=== PATIENT | female | born 1975 | race Caucasian/White ===

== ENCOUNTER 2018-07-04 14:00 | Outpatient (RCR) | payer BC, SELFPAY | END 2018-07-04 14:01 | disposition home or self-care (01) | LOC: PT 14:00 | PROVIDERS: Family Provider Internal Medicine Adolescent Medicine; PCP Nurse Practitioner Family; Visit Provider Family Medicine | DX: T14.8XXA Other injury of unspecified body region, initial encounter (principal); E11.621 Type 2 diabetes mellitus with foot ulcer | CPT/HCPCS: 97161 ==

== ENCOUNTER 2021-01-24 10:46 | Emergency (ER) | payer BC, SELFPAY ==
[2021-01-24 11:05] VITALS: BP 160/90; PULSE 78; RESP 19; TEMP 36.9; O2SAT 98; BMI 43.4
[2021-01-24 11:26] LABS: UTC Strep Screen (Rapid) Positive (Negative)
--- NOTE | 2021-01-24 11:28 | HMH.EDUTC ---
[facility] [place] Disposition Clinical Impression: Strep throat Disposition: Home, Self-Care Condition on Discharge: Good Instructions: DI for Strep Throat Additional Instructions: Start antibiotics today be sure to take it as ordered with the full length of time although you should start feeling better in 24-48 hours. Change toothbrush and toothpaste 24-48 hours after starting antibiotics Tylenol or Motrin as needed for fever or pain Encourage fluids, water, Gatorade, Powerade, try cold fluids, popsicles, ice cream will make it feel better You are contagious for 24 hours. Avoid kissing anyone, no eating or drinking after anyone. You are contagious. Follow-up the ER for new or worsening symptoms or no noticeable improvement over the next 24-48 hours. Follow-up with PCP this week. self isolate until test results are known to be neg Prescriptions: Amoxicillin [Amoxicillin 500mg Tab] 500 mg PO BID 10 Days #20 tab Transmission Status: Pending to [facility] Referrals: Maria Alejandra Gastelum [Primary Care Provider] - Time of Disposition: 11:32 Medical Decision Making - Gulshan Inquiry Pt receiving controlled substance: No Vital Signs: 01/24/21 11:05 Temperature 98.4 F Temperature Source Oral Pulse Rate [Right] 78 Respiratory Rate 19 Blood Pressure [Right Arm] 160/90 H Blood Pressure Mean [Right Arm] 113 Blood Pressure Source [Right Arm] Automatic Cuff Blood Pressure Position [Right Arm] Sitting 02 Sat by Pulse Oximetry 98 Oxygen Delivery Method Room Air - Lab Data Lab Results 01/24/21 11:09: Strep Scn Rapid Clinic Positive A [facility] [place] HPI - General Chief complaint: Urgent Treatment Center Stated complaint: headache, sore throat Time Seen by Provider: 01/24/21 11:28 Mode of Arrival: Ambulatory Source of Information: Patient Limitations: No Limitations Description of Symptoms (Recalled from Triage Doc. by RN): pt c/o SCHMITT, cough, sore throat, bilateral ear aches, and sinus pressure x1 week. HEENT Symptoms (Recalled from RN notes): Yes (SCHMITT, sore throat and sinus pressure) Resp Symptoms (Recalled from RN notes): Yes (cough) Skin Symptoms (Recalled from RN notes): No MS Symptoms (Recalled from RN notes): No Functional Status (Recalled from RN notes): na - History of Present Illness Provider Complaint: 45 yr old female pt c/o SCHMITT, cough, sore throat, bilateral ear aches, and sinus pressure x1 week. - Related Data Home Medications Medication Instructions Recorded Confirmed amlodipine 5 mg tablet PO 30 Days #30 05/05/18 losartan 100 PO 30 Days #30 05/05/18 mg-hydrochlorothiazide 12.5 mg tablet metformin 1,000 mg tablet PO 30 Days #60 05/05/18 venlafaxine 75 mg capsule,extended PO 30 Days #30 05/05/18 release 24 hr Previous Rx's Medication Instructions Recorded fluticasone propionate 50 1 spray INTRANASAL ONCE #16 g 05/05/18 mcg/actuation nasal spray,suspension loratadine 10 mg tablet 10 mg PO ONCE #30 tab 05/05/18 Amoxicillin [Amoxicillin 500mg Tab] 500 mg PO BID 10 Days #20 tab 01/24/21 Allergies Allergy/AdvReac Type Severity Reaction Status Date / Time mycen drugs Allergy Uncoded 01/24/21 10:55 - Worker's Comp Is this a Worker's Comp case?: No [facility] History - Hepatitis A Screen Drug use history?: No High risk sexual behaviors?: No History of sexually transmitted infection?: No Currently employed?: No Childcare worker?: No Do you have indoor plumbing?: Yes Do you have electricity?: Yes Attestation statement:: This patient has been screened for Hepatitis A risk factors. I have reviewed the patient's past medical history: Yes Medical History: Reports:: Diabetes Mellitus Type 2, Hypertension Other Surgeries: Yes: Cholecystectomy, , Hysterectomy-Total, Plastic Surgery (Breast reduction) Amputation: No Fractures: No Comment: Cyst removed from left foot. - Social History Smoking Status: Never smoker Alcohol Intake: never Substance Use Type: denies u
[2021-01-24 11:29] VITALS: BP 157/93; PULSE 77; RESP 14; TEMP 36.6
== END 2021-01-24 11:46 | disposition home or self-care (01) ==
PROVIDERS: Emergency Provider Nurse Practitioner Family; PCP Nurse Practitioner Family
DX: J02.0 Streptococcal pharyngitis (principal); E11.9 Type 2 diabetes mellitus without complications; I10 Essential (primary) hypertension; Z79.899 Other long term (current) drug therapy
CPT/HCPCS: 87880; 99202; G0463

== ENCOUNTER 2021-09-23 11:42 | Emergency (ER) | payer BC, SELFPAY ==
[2021-09-23 12:40] VITALS: BP 161/84; PULSE 72; RESP 21; TEMP 36.8; O2SAT 100; BMI 43.0
[2021-09-23 13:03] LABS: UTC Influenza A Antigen Negative (Negative); UTC Strep Screen (Rapid) Negative (Negative)
[2021-09-23 13:04] LABS: UTC Influenza B Antigen Negative (Negative)
--- NOTE | 2021-09-23 13:38 | HMH.EDUTC ---
[facility] [place] Disposition Clinical Impression: Otitis media Qualifiers: Otitis media type: unspecified Laterality: left Qualified Code(s): H66.92 - Otitis media, unspecified, left ear Disposition: Home, Self-Care Condition on Discharge: Good Instructions: Middle Ear Infection, Middle Ear Infections (Alternative Therapy), Cefdinir, DI for Cough -- Adult Additional Instructions: *Monitor Temp, Over the counter Motrin or Tylenol as directed/as needed Tylenol every 4 hours and Motrin every 6 hours (as long as your family doctor has told you that you can take it) for fever or pain. and straight to ER if unable to lower temp less than 101.0 after medication given *Warm salt water gargles may help to soothe the throat *Throat Lozenges *Warm fluids like tea with honey may help to soothe the throat *Sleep elevated *Humidifier/Vaporizer Your throat swab was sent for culture. Those results are typically sent to your primary care. Be sure to follow up in 2-3 days with your family doctor/primary care physician if no improvement so they can review those result and treat if necessary. If you don?t have a primary care doctor, I recommend you get one but in the mean time, you will have to return to a walk in clinic Follow up IMMEDIATELY for new or worsening symptoms or no Noticeable improvement over the next 48-72 hours. 911 for difficulty breathing or swallowing You were tested for today for COVID19 your test result should be back in the next 24-48 hours, you may Check your results on the [facility] My health portal or in person at the Health information from [phone] if you have issues logging allied health professional [phone] Ext [phone] You was given a handout with instructions for Self Quarantine and Self isolation for while you wait on test results and what to do if they are positive If you are positive the Health Dept will be contacting you also Make sure to take your Vitamins Vit. C Vit D and Zinc if you can take them Prescriptions: Benzonatate [Benzonatate 100mg cap] 100 mg PO TID PRN #15 cap PRN Reason: Cough Transmission Status: [facility] Cefdinir [Omnicef 300mg Capsule] 300 mg PO BID #20 cap Transmission Status: [facility] Referrals: Maria Alejandra Gastelum [Primary Care Provider] - As needed Time of Disposition: 13:56 Medical Decision Making - Gulshan Inquiry Pt receiving controlled substance: No Gulshan was queried for this patient: No Vital Signs: 09/23/21 12:40 Temperature 98.3 F Temperature Source Oral Pulse Rate [Right Brachial] 72 Respiratory Rate 21 Blood Pressure [Right Arm] 161/84 H Blood Pressure Mean [Right Arm] 109 Blood Pressure Source [Right Arm] Automatic Cuff Blood Pressure Position [Right Arm] Sitting 02 Sat by Pulse Oximetry 100 Oxygen Delivery Method Room Air - Lab Data Lab results reviewed: Yes: I reviewed the patient's lab results. Lab Results 09/23/21 12:51: Influenza Type A Ag Negative, Influenza Type B Ag Negative 09/23/21 12:51: Strep Scn Rapid Clinic Negative Orders (Tests/Meds): ORDERS Category Date Time Status Covid-19 Nasal PCR ([facility]) Routine Lab 09/23/21 12:40 Received Strep Screen Confirmation Stat Micro 09/23/21 12:51 Received [facility] UTC HPI - General Stated complaint: sore throat, soa, congestion Time Seen by Provider: 09/23/21 13:38 Mode of Arrival: Ambulatory Source of Information: Patient Limitations: No Limitations Description of Symptoms (Recalled from Triage Doc. by RN): PATIENT C/O SORE THROAT, MUSCLE/JOINT ACHES, COUGH, AND EAR PAIN SINCE YESTERDAY HEENT Symptoms (Recalled from RN notes): Yes Resp Symptoms (Recalled from RN notes): No Skin Symptoms (Recalled from RN notes): No MS Symptoms (Recalled from RN notes): Yes Functional Status (Recalled from RN notes): WNL - History of Present Illness Provider Complaint: Patient states that she has been having pain in her left ear, sore throat, swollen lymph nodes cough and chest congestion for a c
[2021-09-23 14:00] VITALS: BP 161/84; PULSE 72; RESP 21; TEMP 36.8; O2SAT 100
== END 2021-09-23 14:05 | disposition home or self-care (01) ==
PROVIDERS: Emergency Provider Nurse Practitioner; PCP Nurse Practitioner Family
DX: H66.92 Otitis media, unspecified, left ear (principal); E11.9 Type 2 diabetes mellitus without complications; I10 Essential (primary) hypertension
CPT/HCPCS: 87804; 87880; 99203; C9803; G0463; U0003; U0005

== ENCOUNTER 2023-12-10 12:18 | Emergency (ER) | payer BC, SELFPAY ==
[2023-12-10] VITALS (11 sets, daily range): BP systolic 125–172; BP diastolic 69–112; PULSE 57–87; RESP 13–20; TEMP 36.5–36.7; O2SAT 95–99; BMI 36.4
--- NOTE | 2023-12-10 12:18 | ECG_ITS ---
APPROVED REPORT Exam: Resting ECG HR:93 bpm ECG Measurements Heart Rate 93 AXES [place] 213 P 73 QRSd 106 QRS -49 QT 378 T 51 QTc 428 Conclusion SINUS RHYTHM WITH FIRST DEGREE AV BLOCK LEFT AXIS DEVIATION [QRS AXIS < -30] Late R wave progression ABNORMAL ECG UNCONFIRMED REPORT Electronically signed by : Sarwat Avalos MD 12/11/2023 07:44:43
--- NOTE | 2023-12-10 12:22 | XR_ITS ---
PROCEDURE INFORMATION: Exam: XR Chest Exam date and time: 12/10/2023 12:25 PM Age: 48 years old Clinical indication: Pain; Chest pressure; Additional info: Midline cp TECHNIQUE: Imaging protocol: Radiologic exam of the chest. Views: 2 views. COMPARISON: No relevant prior studies available. FINDINGS: Lungs: No consolidation or lung nodules. Pleural spaces: No pleural effusion. No pneumothorax. Heart/Mediastinum: No abnormalities. No cardiomegaly. No pulmonary vascular congestion. Bones/joints: No fractures or bone lesions. IMPRESSION: No acute findings in the chest.
--- NOTE | 2023-12-10 12:26 | ED_ITS ---
Discharge Plan Disposition Patient Disposition: Home, Self-Care Chief Complaint: Chest Pain Prescriptions Prescriptions: No Action losartan-hydrochlorothiazide 100-12.5 mg tablet PO 30 Days Qty: 30 metformin 1,000 mg tablet PO 30 Days Qty: 60 amlodipine 5 mg tablet PO 30 Days Qty: 30 venlafaxine 75 mg capsule,extended release 24hr PO 30 Days Qty: 30 fluticasone propionate [Allergy Relief (fluticasone)] 50 mcg/actuation spray,suspension 1 spray INTRANASAL ONCE Qty: 16 0RF Rx Instructions: administer into each nostril loratadine 10 mg tablet 10 mg PO ONCE Qty: 30 0RF amoxicillin 500 MG tablet 500 mg PO BID 10 Days Qty: 20 0RF benzonatate 100 MG capsule 100 mg PO TID PRN (Reason: Cough) Qty: 15 0RF cefdinir 300 MG capsule 300 mg PO BID Qty: 20 0RF Referrals Follow up/Referrals: Kristian Meeks MD [Staff Physician] - See instructions Provider,MD Nikki [Referring] - See instructions Activity Restrictions/Add. Instructions Additional Instructions/Restrictions: At this time it was felt you are safe to be discharged home. If new or worsening symptoms please do not hesitate to return the emergency department. Please call and schedule appoint with Dr. Meeks as you are able. Clinical Impressions Clinical Impression: Chest pain Discharge ED Provider: William Issa HPI <Flip Hartley MD - Last Filed: 12/10/23 13:59> General Chief Complaint: Chest Pain Stated Complaint: chest pain Time Seen by Provider: 12/10/23 12:22 Mode of Arrival: Ambulatory Source of Information: Patient Limitations: No Limitations Description of Symptoms (Recalled from ER Triage Doc. by RN): pt reports chest pain began yesterday approx 1800. pt reports feels like stabbing pain. pain located in middle of chest. pt reports nausea and lightheadedness that she is most concerned with . History of Present Illness HPI narrative: Patient is a 48-year-old female with past medical history of [id number] diabetes who presents to the emergency department for evaluation of chest pain, intermittent lightheadedness. Onset was acute, 6 PM yesterday, intermittent, moderate to severe in intensity causing her to present here for continued evaluation. It radiates down bilateral lower extremities intermittently, does not radiate through to the back. 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 She has had chest pain previously that has been seen by a tight rope walker, does not report cardiac catheterization or stents. Related Data Home Medications Medication Instructions Recorded Confirmed amlodipine 5 mg tablet PO 30 days ##30 05/05/18 losartan 100 PO 30 days ##30 05/05/18 mg-hydrochlorothiazide 12.5 mg tablet metformin 1,000 mg tablet PO 30 days ##60 05/05/18 venlafaxine 75 mg capsule,extended PO 30 days ##30 05/05/18 release 24 hr Previous Rx's Medication Instructions Recorded fluticasone propionate 50 1 spray intranasal ONCE #16 grams 05/05/18 mcg/actuation nasal spray,suspension (Allergy Relief (fluticasone)) loratadine 10 mg tablet 10 mg PO ONCE #30 tabs 05/05/18 amoxicillin 500 mg tablet 500 mg PO BID 10 days #20 tabs 01/24/21 benzonatate 100 mg capsule 100 mg PO TID PRN Cough #15 caps 09/23/21 cefdinir 300 mg capsule 300 mg PO BID #20 caps 09/23/21 Allergies Allergy/AdvReac Type Severity Reaction Status Date / Time mycen drugs Allergy Uncoded 01/24/21 10:55 [facility] <Flip Hartley MD - Last Filed: 12/10/23 13:59> [facility] Disclaimer: The information contained in this section may have been updated after the patient was seen, as this information can be updated by other users. Social History Smoking Status: Never smoker alcohol intake: never substance use type: denies use current occupational status: employed Travel in the last 8 weeks: None <Flip Hartley MD - Last Filed: 12/10/23 13:59> ROS Obtained: Yes Systems reviewed as appropriate & no additional complaints except as documented Physical Exam <Flip Hartley MD - Last Filed: 12/10/23 13:59> General General appearance: alert and in no apparent distress Head Head exam: atraumatic and normocephalic Eye Eye exam: Present PERRL and EOMI ENT ENT exam: Present mucous membranes moist Neck Neck exam: Present normal inspection Chest Chest inspection: Present normal inspection and symmetric chest wall rise Respiratory Respiratory exam: Present normal lung sounds bilaterally; Absent respiratory distress Cardiovascular Cardiovascular exam: Present regular rate, normal rhythm and other (Palpable bilateral radial pulses, symmetric) Abdominal Exam Abdominal exam: Present soft; Absent tenderness Extremities Exam Extremities exam: Present normal inspection Neurological Exam Neurological exam: Present alert; Absent motor sensory deficit Psychiatric Psychiatric exam: Present normal affect Skin Skin exam: Present warm and dry HEART Score <Flip Hartley MD - Last Filed: 12/10/23 13:59> HEART Score HEART Score assessment performed?: Yes History (anamnesis): Moderately suspicious ECG: Non-specific disturbance Age: 45-65 years Risk factors: No known risk factors Troponin: </= normal limit HEART Score: 3 <William Issa MD - Last Filed: 12/10/23 16:07> HEART Score HEART Score: 3 Critical Care <Flip Hartley MD - Last Filed: 12/10/23 13:59> Critical Care Time Critical Care Time: No Medical Decision Making <Flip Hartley MD - Last Filed: 12/10/23 13:59> Gulshan Inquiry Pt receiving controlled substance: No Vital Signs Vital Signs: 12/10/23 12:19 12/10/23 12:26 12/10/23 12:21 Temperature 97.7 F Temperature Source Oral Pulse Rate 67 68 Pulse Rate [Left Radial] 67 Respiratory Rate 20 17 Blood Pressure 125/87 Blood Pressure [Right Arm] 125/87 Blood Pressure Mean 96 Blood Pressure Mean [Right Arm] 99 02 Sat by Pulse Oximetry 98 97 Oxygen Delivery Method Room Air Room Air 12/10/23 12:31 12/10/23 13:00 12/10/23 13:34 Temperature Temperature Source Pulse Rate 67 71 87 Pulse Rate [Left Radial] Respiratory Rate 17 15 14 Blood Pressure 139/69 156/87 H 160/90 H Blood Pressure [Right Arm] Blood Pressure Mean 88 Blood Pressure Mean [Right Arm] 02 Sat by Pulse Oximetry 96 96 96 Oxygen Delivery Method Room Air Room Air Room Air 12/10/23 14:01 12/10/23 14:31 12/10/23 14:46 Temperature Temperature Source Pulse Rate 64 57 L 85 Pulse Rate [Left Radial] Respiratory Rate 17 13 17 Blood Pressure 168/87 H 172/112 H 135/76 Blood Pressure [Right Arm] Blood Pressure Mean 123 Blood Pressure Mean [Right Arm] 02 Sat by Pulse Oximetry 99 96 97 Oxygen Delivery Method Room Air Room Air Room Air 12/10/23 15:00 Temperature Temperature Source Pulse Rate 80 Pulse Rate [Left Radial] Respiratory Rate 14 Blood Pressure 161/87 H Blood Pressure [Right Arm] Blood Pressure Mean Blood Pressure Mean [Right Arm] 02 Sat by Pulse Oximetry 95 Oxygen Delivery Method Room Air Lab Data Labs: Lab Results 12/10/23 12:20: WBC 10.7, RBC 5.17, Hgb 15.5, Hct 46.5, MCV 89.9, MCH 30.0, MCHC 33.4, RDW 13.4, Plt Count 236, MPV 7.8, Neut % (Auto) 67.8, Lymph % (Auto) 24.4, Wood % (Auto) 6.3, Eos % (Auto) 0.9, Baso % (Auto) 0.6, Neut # (Auto) 7.3, Lymph # (Auto) 2.6, Wood # (Auto) 0.7, Eos # (Auto) 0.1, Baso # (Auto) 0.1, D-Dimer 0.36, Sodium 139, Potassium 3.3 L, Chloride 100, Carbon Dioxide 34 H, Anion Gap 8.3, BUN 13, Creatinine 0.70, Estimated Creat Clear 161, Estimated GFR 90, Est GFR ( Amer) 109, Glucose 157 H, Calcium 9.5, Magnesium 2.0, Total Bilirubin 0.7, AST 32, ALT 29, Alkaline Phosphatase 93, Troponin I < 0.01, Total Protein 7.5, Albumin 4.2, Globulin 3.3 H, Albumin/Globulin Ratio 1.3 12/10/23 15:26: Troponin I < 0.01 12/10/23 12:20 12/10/23 12:20 Response Orders (Tests/Meds): ED MEDICATIONS Discontinued Medications Generic Name Dose Route Start Last Admin Trade Name Freq PRN Reason Stop Dose Admin Aspirin 324 mg 12/10/23 12:26 12/10/23 12:40 Aspirin 81mg Chewable Tablet PO 12/10/23 12:27 324 mg ONCE ONE Administration Belladonna Alkaloids 60 ml 12/10/23 12:26 12/10/23 12:40 Belladonna Alkaloids 60 Ml Ml PO 12/10/23 12:27 60 ml ONCE ONE Administration Ketorolac Tromethamine 30 mg 12/10/23 13:59 12/10/23 14:09 Ketorolac 30mg/Ml Vial IV 12/10/23 14:00 30 mg ONCE ONE Administration Ondansetron HCl 4 mg 12/10/23 14:59 12/10/23 15:29 Ondansetron 4mg/2ml Vial IV 12/10/23 15:00 4 mg ONCE ONE Administration Potassium Chloride 40 meq 12/10/23 14:59 12/10/23 15:27 Potassium Chloride 20meq Tab PO 12/10/23 15:00 40 meq ONCE ONE Administration ORDERS Category Date Time Status CXR 2 view (NOT portable) [XR chest 2V] Stat Exams 12/10/23 12:22 Completed CBC w/Auto Diff [Complete Blood Count Auto Diff] Stat Lab 12/10/23 12:20 Completed CMP [Comprehensive Metabolic Panel] Stat Lab 12/10/23 12:20 Completed D-Dimer Stat Lab 12/10/23 12:20 Completed MG [Magnesium] Stat Lab 12/10/23 12:20 Completed Trop I [Troponin I] Stat Lab 12/10/23 12:20 Completed Troponin I Q3H Lab 12/10/23 15:26 Completed Troponin I Q3H Lab 12/10/23 18:30 Ordered ECG initial Besson Routine Y 12/10/23 12:18 Completed ECG Data Tracing #1: ECG Narrative: Independently interpreted by me, rate is 93, rhythm is regular, no ST elevation in anatomical contiguous leads, QTc 428. First-degree AV block. MDM Narrative Medical Decision Narrative: In summary patient is a 48-year-old female with past medical history described above who presents emergency department for evaluation of chest pain. Patient is hemodynamically stable nontoxic-appearing upon arrival, afebrile. Differential diagnosis includes ACS, noncardiac chest pain, anxiety, among others. Aortic dissection less likely. Workup will be conducted with hematologic labs, chest x-ray, EKG, serial troponins. ADD-RS score 0 we will proceed to D-dimer. Initial inventions include aspirin, GI cocktail. Initial workup reviewed by me, hematologic labs are nonactionable, initial troponin below detectable limit. EKG no acute ischemia. D-dimer 0.36, no concern for aortic dissection or pulmonary embolism. The patient was placed in observation status at 1:43 PM. Medical necessity for observational status is serial t roponins. The patient was provided serial reevaluations and cardiac monitoring while awaiting results. Second troponin pending at time of transfer of care to the oncoming physician, Dr. Issa. [Results of testing during observation are remarkable for:]. [Because of these results I feel patient can be discharged with follow-up with her PCP versus feel patient requires admission due to]. Total time in observation was [total time]. <William Issa MD - Last Filed: 12/10/23 16:07> Vital Signs Vital Signs: 12/10/23 12:19 12/10/23 12:26 12/10/23 12:21 Temperature 97.7 F Temperature Source Oral Pulse Rate 67 68 Pulse Rate [Left Radial] 67 Respiratory Rate 20 17 Blood Pressure 125/87 Blood Pressure [Right Arm] 125/87 Blood Pressure Mean 96 Blood Pressure Mean [Right Arm] 99 02 Sat by Pulse Oximetry 98 97 Oxygen Delivery Method Room Air Room Air 12/10/23 12:31 12/10/23 13:00 12/10/23 13:34 Temperature Temperature Source Pulse Rate 67 71 87 Pulse Rate [Left Radial] Respiratory Rate 17 15 14 Blood Pressure 139/69 156/87 H 160/90 H Blood Pressure [Right Arm] Blood Pressure Mean 88 Blood Pressure Mean [Right Arm] 02 Sat by Pulse Oximetry 96 96 96 Oxygen Delivery Method Room Air Room Air Room Air 12/10/23 14:01 12/10/23 14:31 12/10/23 14:46 Temperature Temperature Source Pulse Rate 64 57 L 85 Pulse Rate [Left Radial] Respiratory Rate 17 13 17 Blood Pressure 168/87 H 172/112 H 135/76 Blood Pressure [Right Arm] Blood Pressure Mean 123 Blood Pressure Mean [Right Arm] 02 Sat by Pulse Oximetry 99 96 97 Oxygen Delivery Method Room Air Room Air Room Air 12/10/23 15:00 Temperature Temperature Source Pulse Rate 80 Pulse Rate [Left Radial] Respiratory Rate 14 Blood Pressure 161/87 H Blood Pressure [Right Arm] Blood Pressure Mean Blood Pressure Mean [Right Arm] 02 Sat by Pulse Oximetry 95 Oxygen Delivery Method Room Air Lab Data Labs: Lab Results 12/10/23 12:20: WBC 10.7, RBC 5.17, Hgb 15.5, Hct 46.5, MCV 89.9, MCH 30.0, MCHC 33.4, RDW 13.4, Plt Count 236, MPV 7.8, Neut % (Auto) 67.8, Lymph % (Auto) 24.4, Wood % (Auto) 6.3, Eos % (Auto) 0.9, Baso % (Auto) 0.6, Neut # (Auto) 7.3, Lymph # (Auto) 2.6, Wood # (Auto) 0.7, Eos # (Auto) 0.1, Baso # (Auto) 0.1, D-Dimer 0.36, Sodium 139, Potassium 3.3 L, Chloride 100, Carbon Dioxide 34 H, Anion Gap 8.3, BUN 13, Creatinine 0.70, Estimated Creat Clear 161, Estimated GFR 90, Est GFR ( Amer) 109, Glucose 157 H, Calcium 9.5, Magnesium 2.0, Total Bilirubin 0.7, AST 32, ALT 29, Alkaline Phosphatase 93, Troponin I < 0.01, Total Protein 7.5, Albumin 4.2, Globulin 3.3 H, Albumin/Globulin Ratio 1.3 12/10/23 15:26: Troponin I < 0.01 Response Orders (Tests/Meds): ED MEDICATIONS Discontinued Medications Generic Name Dose Route Start Last Admin Trade Name Freq PRN Reason Stop Dose Admin Aspirin 324 mg 12/10/23 12:26 12/10/23 12:40 Aspirin 81mg Chewable Tablet PO 12/10/23 12:27 324 mg ONCE ONE Administration Belladonna Alkaloids 60 ml 12/10/23 12:26 12/10/23 12:40 Belladonna Alkaloids 60 Ml Ml PO 12/10/23 12:27 60 ml ONCE ONE Administration Ketorolac Tromethamine 30 mg 12/10/23 13:59 12/10/23 14:09 Ketorolac 30mg/Ml Vial IV 12/10/23 14:00 30 mg ONCE ONE Administration Ondansetron HCl 4 mg 12/10/23 14:59 12/10/23 15:29 Ondansetron 4mg/2ml Vial IV 12/10/23 15:00 4 mg ONCE ONE Administration Potassium Chloride 40 meq 12/10/23 14:59 12/10/23 15:27 Potassium Chloride 20meq Tab PO 12/10/23 15:00 40 meq ONCE ONE Administration ORDERS Category Date Time Status CXR 2 view (NOT portable) [XR chest 2V] Stat Exams 12/10/23 12:22 Completed CBC w/Auto Diff [Complete Blood Count Auto Diff] Stat Lab 12/10/23 12:20 Completed CMP [Comprehensive Metabolic Panel] Stat Lab 12/10/23 12:20 Completed D-Dimer Stat Lab 12/10/23 12:20 Completed MG [Magnesium] Stat Lab 12/10/23 12:20 Completed Trop I [Troponin I] Stat Lab 12/10/23 12:20 Completed Troponin I Q3H Lab 12/10/23 15:26 Completed Troponin I Q3H Lab 12/10/23 18:30 Ordered ECG initial Besson Routine Y 12/10/23 12:18 Completed MDM Narrative Medical Decision Narrative: In summary patient is a 48-year-old female with past medical history described above who presents emergency department for evaluation of chest pain. Patient is hemodynamically stable nontoxic-appearing upon arrival, afebrile. Differen tial diagnosis includes ACS, noncardiac chest pain, anxiety, among others. Aortic dissection less likely. Workup will be conducted with hematologic labs, chest x-ray, EKG, serial troponins. ADD-RS score 0 we will proceed to D-dimer. Initial inventions include aspirin, GI cocktail. Initial workup reviewed by me, hematologic labs are nonactionable, initial troponin below detectable limit. EKG no acute ischemia. D-dimer 0.36, no concern for aortic dissection or pulmonary embolism. The patient was placed in observation status at 1:43 PM. Medical necessity for observational status is serial troponins. The patient was provided serial reevaluations and cardiac monitoring while awaiting results. Second troponin pending at time of transfer of care to the oncoming physician, Dr. Issa. Luis Manuel: I assume primary responsibility for this patient after signout from previous physician. On my evaluation, patient resting comfortably. Results of testing during observation are remarkable for: Negative delta troponin. Because of this, I feel patient is safe to be discharged with PCP follow-up. Total time in observation was 3 hours. Because patient at baseline without signs or symptoms of clinical decompensation, deemed appropriate for discharge. Results were relayed to patient who voiced understanding and were agreeable to outpatient management and follow up. At the time of discharge the patient was hemodynamically stable, tolerating PO, and mobilizing appropriately.
[2023-12-10 12:39] LABS: Basophils # 0.1 K/mm3 (0-0.2); Basophils % 0.6 % (0.1-2.0); Eosinophils # 0.1 K/mm3 (0.0-0.4); Eosinophils % 0.9 % (0.1-12.0); Hematocrit 46.5 % (37.0-47.0); Hemoglobin 15.5 g/dL (12.2-16.2); Lymphocytes # 2.6 K/mm3 (0.7-4.5); Lymphocytes % 24.4 % (10-50); Mean Corpuscular HGB Conc 33.4 g/dL (31.8-35.4); Mean Corpuscular Volume 89.9 fl (81-99); Mean Platelet Volume 7.8 fl (7.4-10.4); Monocytes # 0.7 K/mm3 (0.1-1.0); Monocytes % 6.3 % (1.7-9.3); Neutrophils # 7.3 K/mm3 (1.8-7.8); Neutrophils % 67.8 % (37.0-80.0); Platelet Count 236 K/mm3 (142-424); Red Blood Count 5.17 M/mm3 (4.20-5.40); Red Cell Distribution Width 13.4 % (11.5-17.5); White Blood Count 10.7 K/mm3 (4.8-10.8)
[2023-12-10] MEDS: ASPIRIN 81MG CHEWABLE TABLET 324 MG PO (12:40)
[2023-12-10] MEDS: BELLADONNA ALKALOIDS 60 ML ML PO (12:40)
[2023-12-10 12:42] LABS: Alanine Aminotransferase 29 U/L (12-78); Albumin Level 4.2 g/dl (3.5-5.0); Albumin/Globulin Ratio 1.3 (1.1-1.8); Alkaline Phosphatase 93 U/L (38-126); Anion Gap 8.3 mEq/L (5-15); Aspartate Amino Transferase 32 U/L (14-36); Bilirubin,Total 0.7 mg/dl (0.2-1.3); Blood Urea Nitrogen 13 mg/dl (7-17); Calcium 9.5 mg/dl (8.4-10.2); Carbon Dioxide 34 mmol/L (22.0-30.0); Chloride 100 mmol/L (98-107); Creatinine Clearance Estimated 161 mL/min (50-200); Estimated Glomerular Filt Rate 90 ml/min (>60); GFR (African American) 109 ML/MIN (>60); Globulin 3.3 g/dL (1.3-3.2); Glucose 157 mg/dl (74-100); Potassium 3.3 mmoL/L (3.5-5.1); Sodium 139 mmol/L (136-145); Total Protein,Serum 7.5 g/dl (6.3-8.2)
[2023-12-10 12:47] LABS: D-Dimer 0.36 ug/mL (0.0-0.5)
[2023-12-10 12:59] LABS: Troponin I < 0.01 ng/ml (0.00-0.034)
--- NOTE | 2023-12-10 13:24 | PC.NURSE ---
pt resting in bed no needs at this time call light at bs
[2023-12-10] MEDS: KETOROLAC 30MG/ML VIAL 30 MG IV (14:09)
[2023-12-10] MEDS: POTASSIUM CHLORIDE 20MEQ TAB 40 MEQ PO (15:27)
[2023-12-10] MEDS: ONDANSETRON 4MG/2ML VIAL 4 MG IV (15:29)
[2023-12-10 15:58] LABS: Troponin I < 0.01 ng/ml (0.00-0.034)
== END 2023-12-10 16:24 | disposition home or self-care (01) ==
PROVIDERS: Emergency Medicine; Emergency Provider Emergency Medicine; PCP Pediatrics
DX: R07.89 Other chest pain (principal); I44.0 Atrioventricular block, first degree; E11.9 Type 2 diabetes mellitus without complications; Z79.84 Long term (current) use of oral hypoglycemic drugs
CPT/HCPCS: 71046; 80053; 83735; 84484; 85025; 85378; 93005; 96374; 96375; 99284; J2405

== ENCOUNTER 2024-03-12 19:28 | Emergency (ER) | payer OTHER, SELFPAY ==
[2024-03-12 19:30] VITALS: BP 146/105; PULSE 75; RESP 18; TEMP 36.7; O2SAT 96; BMI 39.4
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
[2024-03-12] MEDS: KETOROLAC 60MG/2ML VIAL 60 MG IM (20:12)
[2024-03-12] MEDS: METHOCARBAMOL 500MG TABLET 500 MG PO (20:12)
[2024-03-12 20:26] VITALS: BP 130/72; PULSE 77; RESP 18; TEMP 36.7; O2SAT 99
== END 2024-03-12 20:28 | disposition home or self-care (01) ==
PROVIDERS: Emergency Provider Emergency Medicine; PCP Pediatrics
DX: M54.2 Cervicalgia (principal); R51.9 Headache, unspecified; V49.40XA Driver injured in collision with unspecified motor vehicles in traffic accident, initial encounter
CPT/HCPCS: 96372; 99283

== ENCOUNTER 2024-03-15 14:08 | Emergency (ER) | payer OTHER, SELFPAY ==
[2024-03-15 14:11] VITALS: BP 149/87; PULSE 66; RESP 18; TEMP 36.7; O2SAT 99; BMI 39.6
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
[2024-03-15 14:23] VITALS: BMI 39.6
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
[2024-03-15] MEDS: ACETAMINOPHEN 1,000MG/100ML VIAL 1000 MG IV (15:22)
[2024-03-15] MEDS: ONDANSETRON 4MG ODT 4 MG SL (15:22)
[2024-03-15] MEDS: KETOROLAC 30MG/ML VIAL 15 MG IV (15:22)
[2024-03-15] MEDS: DEXAMETHASONE 4MG/ML 5ML MDV 10 MG IV (15:22)
[2024-03-15] MEDS: METHOCARBAMOL 500MG TABLET 500 MG PO (15:23)
[2024-03-15 15:35] LABS: Anion Gap 13.6 mEq/L (5-15); Blood Urea Nitrogen 16 mg/dl (7-17); Calcium 9.5 mg/dl (8.4-10.2); Carbon Dioxide 31 mmol/L (22.0-30.0); Chloride 98 mmol/L (98-107); Creatinine Clearance Estimated 228 mL/min (50-200); Estimated Glomerular Filt Rate 132 ml/min (>60); GFR (African American) 159 ML/MIN (>60); Glucose 130 mg/dl (74-100); Potassium 3.6 mmoL/L (3.5-5.1); Sodium 139 mmol/L (136-145)
--- NOTE | 2024-03-15 15:35 | PC.NURSE ---
PT TO CT
[2024-03-15] MEDS: IOPAMIDOL-370 (76%);100ML BOTTLE 100 ML IV (15:52)
[2024-03-15] MEDS: 0.9 % SODIUM CHLORIDE 50 ML VIAL 40 ML IV (15:52)
[2024-03-15] MEDS: SODIUM CHLORIDE 0.9% 10ML SYR (RAD ONLY) 10 ML IV (15:52)
[2024-03-15 15:54] LABS: HCG Qualitative, Serum Negative (Negative)
--- NOTE | 2024-03-15 15:57 | PC.NURSE ---
PT RETURNED FROM CT
--- NOTE | 2024-03-15 17:34 | PC.NURSE ---
Rounded on pt. No needs voiced a this time. Call light within reach.
[2024-03-15 18:15] VITALS: BP 168/96; PULSE 60; RESP 18; TEMP 36.6; O2SAT 98
== END 2024-03-15 18:15 | disposition home or self-care (01) ==
PROVIDERS: Physician Assistant; Emergency Provider Emergency Medicine; PCP Pediatrics
DX: M54.2 Cervicalgia (principal); E04.2 Nontoxic multinodular goiter; R91.1 Solitary pulmonary nodule
CPT/HCPCS: 70450; 70496; 70498; 72125; 72128; 80048; 84703; 85730; 96374; 96375; 99285; J0131; Q9967

== ENCOUNTER 2024-05-22 09:49 | Emergency (ER) | payer BC, SELFPAY ==
[2024-05-22 10:00] VITALS: BP 127/77; PULSE 67; RESP 20; TEMP 36.6; O2SAT 99; BMI 38.9
--- NOTE | 2024-05-22 10:19 | ED_ITS ---
Discharge Plan Disposition Patient Disposition: Home, Self-Care Condition: Good Prescriptions Prescriptions: New amoxicillin-pot clavulanate 875-125 mg Tablet 1 tab PO Q12H Qty: 20 0RF fluticasone propionate [Flonase Allergy Relief] 50 mcg/actuation spray ,suspension 1 - 2 spray intranasal DAILY Qty: 16 0RF Rx Instructions: administer into each nostril No Action venlafaxine 75 mg capsule,extended release 24hr 75 mg PO DAILY Patient Comments: TAKE 1 CAPSULE BY MOUTH EVERY DAY famotidine 40 mg tablet 40 mg PO HS Patient Comments: TAKE 1 TABLET BY MOUTH EVERYDAY AT BEDTIME trazodone 100 mg tablet 100 mg PO DAILY Patient Comments: TAKE 1 TABLET BY MOUTH EVERY DAY AT BEDTIME FOR 30 DAYS omeprazole 20 mg capsule,delayed release(DR/EC) 20 mg PO DAILY Patient Comments: TAKE 1 CAPSULE BY MOUTH EVERY DAY ergocalciferol (vitamin D2) 1,250 mcg (50,000 unit) capsule 1,250 mcg PO WEEKLY Patient Comments: TAKE 1 CAPSULE BY MOUTH ONCE WEEKLY losartan 100 mg tablet 100 mg PO DAILY Patient Comments: TAKE 1 TABLET BY MOUTH EVERY DAY Mounjaro 10 mg/0.5 mL pen injector 10 mg SQ WEEKLY metoprolol succinate 50 mg tablet extended release 24 hr 50 mg PO DAILY Patient Comments: TAKE 1 TABLET BY MOUTH EVERY DAY Jardiance 25 mg Tablet 25 mg PO DAILY Referrals Follow up/Referrals: Gavin Jo [Primary Care Provider] - See instructions Activity Restrictions/Add. Instructions Additional Instructions/Restrictions: *Monitor Temp, Over the counter Motrin or Tylenol as directed/as needed Tylenol every 4 hours and Motrin every 6 hours (as long as your family doctor has told you that you can take it) for fever or pain. and straight to ER if unable to lower temp less than 101.0 after medication given Take medication as prescribed *Sleep elevated *Humidifier/Vaporizer *Flonase 2 sprays in each nostril daily but be aware that it may take 2-3 days before you notice improvement Follow up IMMEDIATELY for new or worsening symptoms or no Noticeable improvement over the next 48-72 hours. 911 for difficulty breathing or swallowing Clinical Impressions Clinical Impression: Otitis media Instructions Patient Instructions: DI for Sinusitis, Middle Ear Infection Print Language Print Language: Urdu Discharge ED Provider: Jaylin Melendez [facility] HPI General Stated complaint: head congestion Mode of Arrival: Ambulatory Source of Information: Patient Limitations: No Limitations Time Seen by Provider: 05/22/24 10:19 Description of Symptoms (Recalled from Triage Doc. by RN): PATIENT C/O BODY ACHES, HEAD CONGESTION, AND EAR PAIN SINCE YESTERDAY HEENT Symptoms (Recalled from RN notes): Yes Resp Symptoms (Recalled from RN notes): No Skin Symptoms (Recalled from RN notes): No MS Symptoms (Recalled from RN notes): No Functional Status (Recalled from RN notes): WNL History of Present Illness Provider Complaint: Patient states that she hasnt been feeling well for several days States worse since yesterday States that she has been having sinus pain and pressure, pain in her left ear and body aches states today she wasnt feeling any better so she came in Related Data Home Medications ?Medication ?Instructions ?Recorded ?Confirmed empagliflozin 25 mg tablet 25 mg PO DAILY 05/22/24 05/22/24 (Jardiance) ergocalciferol (vitamin D2) 1,250 1,250 mcg PO WEEKLY 05/22/24 05/22/24 mcg (50,000 unit) capsule famotidine 40 mg tablet 40 mg PO HS 05/22/24 05/22/24 losartan 100 mg tablet 100 mg PO DAILY 05/22/24 05/22/24 metoprolol succinate 50 mg 50 mg PO DAILY 05/22/24 05/22/24 tablet,extended release 24 hr omeprazole 20 mg capsule,delayed 20 mg PO DAILY 05/22/24 05/22/24 release tirzepatide 10 mg/0.5 mL 10 mg SQ WEEKLY 05/22/24 05/22/24 subcutaneous pen injector (Williams) trazodone 100 mg tablet 100 mg PO DAILY 05/22/24 05/22/24 venlafaxine 75 mg capsule,extended 75 mg PO DAILY 05/22/24 05/22/24 release 24 hr Previous Rx's ?Medication ?Instructions ?Recorded amoxicillin 875 mg-potassium 1 tab PO Q12H #20 tabs 05/22/24 clavulanate 125 mg tablet fluticasone propionate 50 1 - 2 spray intranasal DAILY #16 05/22/24 mcg/actuation nasal grams spray,suspension (Flonase Allergy Relief) Allergies Allergy/AdvReac Type Severity Reaction Status Date / Time erythromycin base Allergy Unknown Verified 01/09/24 12:36 allergy reaction Worker's Comp Is this a Worker's Comp case?: No [facility] Disclaimer: The information contained in this section may have been updated after the patient was seen, as this information can be updated by other users. Medical History (Updated 05/22/24 @ 10:38 by Jaylin Melendez APRN) Depression Anxiety History of gastroesophageal reflux (GERD) Diabetes mellitus, type 2 Hypertension Surgical History (Updated 05/22/24 @ 10:27 by Kati Le RN) History of section History of cholecystectomy History of hysterectomy Social History Smoking Status: Never smoker alcohol intake: never substance use type: denies use current occupational status: employed Travel in the last 8 weeks: None ROS Obtained: Yes All systems reviewed & no additional complaints except as documented and Yes Systems reviewed as appropriate & no additional complaints except as documented Constitutional Constitutional: Reports system reviewed and no additional complaints, except as documented, Reports as per HPI and Reports headache(s) ENT Ears, Nose, Mouth, and Throat: Reports system reviewed and no additional complaints, except as documented, Reports as per HPI, Reports otalgia, Reports headache(s), Reports sinus pain and Reports sinus pressure Respiratory Respiratory: Reports system reviewed and no additional complaints, except as documented and Reports as per HPI Gastrointestinal Gastrointestingal: Reports system reviewed and no additional complaints, except as documented and as per HPI Musculoskeletal Musculoskeletal: Reports system reviewed and no additional complaints, except as documented and Reports as per HPI Neurologic Neurologic: Reports headache(s) Physical Exam General General appearance: alert and in no apparent distress ENT ENT exam: Present mucous membranes moist Expanded ENT Exam TM/Canal exam: Left TM: erythema and bulging Nose exam: Present sinus tenderness Respiratory Respiratory exam: Present normal lung sounds bilaterally; Absent respiratory distress or wheezes Cardiovascular Cardiovascular exam: Present regular rate, normal rhythm and normal heart sounds Neurological Exam Neurological exam: Present alert, oriented X3 and normal gait Medical Decision Making Gulshan Inquiry Pt receiving controlled substance: No Gulshan was queried for this patient: No Vital Signs: 05/22/24 10:00 Temperature 97.8 F Temperature Source Oral Pulse Rate [Left Brachial] 67 Respiratory Rate 20 Blood Pressure [Left Arm] 127/77 Blood Pressure Mean [Left Arm] 93 Blood Pressure Source [Left Arm] Automatic Cuff Blood Pressure Position [Left Arm] Sitting 02 Sat by Pulse Oximetry 99 Oxygen Delivery Method Room Air
[2024-05-22 10:39] VITALS: BP 127/77; PULSE 67; RESP 20; TEMP 36.6; O2SAT 99
== END 2024-05-22 10:42 | disposition home or self-care (01) ==
PROVIDERS: Emergency Provider Nurse Practitioner; PCP Pediatrics
DX: H66.92 Otitis media, unspecified, left ear (principal); R09.81 Nasal congestion
CPT/HCPCS: 99212; 99214; G0463

== ENCOUNTER 2024-06-11 12:26 | Emergency (ER) | payer BC, SELFPAY ==
[2024-06-11 12:27] VITALS: BP 144/69; PULSE 63; RESP 18; TEMP 36.6; O2SAT 98; BMI 37.0
--- NOTE | 2024-06-11 12:38 | PC.NURSE ---
Dr. Dodd at [facility] for pt eval
--- NOTE | 2024-06-11 12:46 | XR_ITS ---
FINAL REPORT CLINICAL HISTORY: dyspnea COMPARISON: None FINDINGS: The heart size is normal. The mediastinum is normal. There is no focal infiltrate or edema. There are no pleural effusions. There is no pneumothorax. There is no osseous abnormality. IMPRESSION: No acute cardiopulmonary process Reviewed, Interpreted and Dictated by Haim Ontiveros MD Transcribed by Shyanne Thomson Authenticated and [facility]
--- NOTE | 2024-06-11 12:46 | [facility].EDGENADL ---
Discharge Plan Disposition Patient Disposition: Home, Self-Care Prescriptions Prescriptions: No Action venlafaxine 75 mg capsule,extended release 24hr 75 mg PO DAILY Patient Comments: TAKE 1 CAPSULE BY MOUTH EVERY DAY famotidine 40 mg tablet 40 mg PO HS Patient Comments: TAKE 1 TABLET BY MOUTH EVERYDAY AT BEDTIME trazodone 100 mg tablet 100 mg PO DAILY Patient Comments: TAKE 1 TABLET BY MOUTH EVERY DAY AT BEDTIME FOR 30 DAYS omeprazole 20 mg capsule,delayed release(DR/EC) 20 mg PO DAILY Patient Comments: TAKE 1 CAPSULE BY MOUTH EVERY DAY ergocalciferol (vitamin D2) 1,250 mcg (50,000 unit) capsule 1,250 mcg PO WEEKLY Patient Comments: TAKE 1 CAPSULE BY MOUTH ONCE WEEKLY losartan 100 mg tablet 100 mg PO DAILY Patient Comments: TAKE 1 TABLET BY MOUTH EVERY DAY Mounjaro 10 mg/0.5 mL pen injector 10 mg SQ WEEKLY metoprolol succinate 50 mg tablet extended release 24 hr 50 mg PO DAILY Patient Comments: TAKE 1 TABLET BY MOUTH EVERY DAY Jardiance 25 mg Tablet 25 mg PO DAILY amoxicillin-pot clavulanate 875-125 mg Tablet 1 tab PO Q12H Qty: 20 0RF fluticasone propionate [Flonase Allergy Relief] 50 mcg/actuation spray,suspension 1 - 2 spray intranasal DAILY Qty: 16 0RF Rx Instructions: administer into each nostril Referrals Follow up/Referrals: Gavin Jo [Primary Care Provider] - See instructions Activity Restrictions/Add. Instructions Additional Instructions/Restrictions: As discussed no emergent medical condition identified today. You did have an abnormally low TSH and I recommend you follow-up with your primary care doctor to look into this further as thyroid dysfunction certainly could be the cause of your nonspecific symptoms. Your COVID and flu test are pending you may call back for results. Clinical Impressions Clinical Impression: Fatigue, Atypical chest pain, Acute dyspnea, Facial paresthesia, Abnormal TSH Print Language Print Language: Syriac Discharge ED Provider: Jerel Dodd General Adult HPI General Chief complaint: Headache Stated complaint: blurred vision, numb face, low bp Time Seen by Provider: 06/11/24 12:37 History of Present Illness HPI narrative: Patient is a 49-year-old female presented with multiple complaints. She states that since Tuesday she started having a myriad of different symptoms including facial paresthesias difficulty breathing chest pain fatigue. She went to an urgent treatment clinic earlier today and they sent her to the emergency department. She denies any fevers or chills. Does have a history of diabetes states her last A1c was in the eights. Glucose most recent was in the 200s. Denies any other significant symptoms. Related Data Home Medications ?Medication ?Instructions ?Recorded ?Confirmed empagliflozin 25 mg tablet 25 mg PO DAILY 05/22/24 05/22/24 (Jardiance) ergocalciferol (vitamin D2) 1,250 1,250 mcg PO WEEKLY 05/22/24 05/22/24 mcg (50,000 unit) capsule famotidine 40 mg tablet 40 mg PO HS 05/22/24 05/22/24 losartan 100 mg tablet 100 mg PO DAILY 05/22/24 05/22/24 metoprolol succinate 50 mg 50 mg PO DAILY 05/22/24 05/22/24 tablet,extended release 24 hr omeprazole 20 mg capsule,delayed 20 mg PO DAILY 05/22/24 05/22/24 release tirzepatide 10 mg/0.5 mL 10 mg SQ WEEKLY 05/22/24 05/22/24 subcutaneous pen injector (Mounjaro) trazodone 100 mg tablet 100 mg PO DAILY 05/22/24 05/22/24 venlafaxine 75 mg capsule,extended 75 mg PO DAILY 05/22/24 05/22/24 release 24 hr Previous Rx's ?Medication ?Instructions ?Recorded amoxicillin 875 mg-potassium 1 tab PO Q12H #20 tabs 05/22/24 clavulanate 125 mg tablet fluticasone propionate 50 1 - 2 spray intranasal DAILY #16 05/22/24 mcg/actuation nasal grams spray,suspension (Flonase Allergy Relief) Allergies Allergy/AdvReac Type Severity Reaction Status Date / Time erythromycin base Allergy Unknown Verified 01/09/24 12:36 allergy reaction [facility] Disclaimer: The information contained in this section may have been updated after the patient was seen, as this information can be updated by other users. Medical History (Updated 06/11/24 @ 14:00 by Jerel Dodd MD) Depression Anxiety History of gastroesophageal reflux (GERD) Diabetes mellitus, type 2 Hypertension Surgical History (Updated 05/22/24 @ 10:27 by Kati Le RN) History of section History of cholecystectomy History of hysterectomy Social History Smoking Status: Never smoker alcohol intake: never substance use type: denies use current occupational status: employed Travel in the last 8 weeks: None ROS Obtained: Yes All systems reviewed & no additional complaints except as documented Physical Exam General General appearance: alert and in no apparent distress Head Head exam: atraumatic and normocephalic Respiratory Respiratory exam: Present normal lung sounds bilaterally; Absent respiratory distress Cardiovascular Cardiovascular exam: Present regular rate and normal rhythm Abdominal Exam Abdominal exam: Present soft; Absent distention or tenderness Neurological Exam Neurological exam: Present alert, oriented X3, CN II-XII intact and normal gait; Absent motor sensory deficit Medical Decision Making Gulshan Inquiry Pt receiving controlled substance: No Vital Signs: 06/11/24 12:27 06/11/24 13:00 Temperature 98 F Temperature Source Oral Pulse Rate 64 Pulse Rate [Right] 63 Respiratory Rate 18 14 Blood Pressure 144/69 H Blood Pressure [Right Arm] 144/69 H Blood Pressure Mean [Right Arm] 94 Blood Pressure Source [Right Arm] Automatic Cuff 02 Sat by Pulse Oximetry 98 99 Oxygen Delivery Method Room Air Room Air Lab Data Lab results reviewed: Yes I reviewed the patient's lab results. Lab Results 06/11/24 12:38: WBC 8.8, RBC 5.14, Hgb 14.9, Hct 46.6, MCV 90.7, MCH 29.1, MCHC 32.0, RDW 14.0, Plt Count 229, MPV 7.9, Neut % (Auto) 61.0, Lymph % (Auto) 30.9, Bollinger % (Auto) 5.8, Eos % (Auto) 1.4, Baso % (Auto) 1.0, Neut # (Auto) 5.4, Lymph # (Auto) 2.7, Bollinger # (Auto) 0.5, Eos # (Auto) 0.1, Baso # (Auto) 0.1, D-Dimer 0.31, Sodium 139, Potassium 3.8, Chloride 102, Carbon Dioxide 32 H, Anion Gap 8.8, BUN 12, Creatinine 0.50 L, Estimated Creat Clear 220, Estimated GFR 132, Est GFR ( Amer) 159, Glucose 134 H, Calcium 9.6, Phosphorus 3.7, Magnesium 1.8, Total Bilirubin 0.5, AST 33, ALT 32, Alkaline Phosphatase 94, Troponin I < 0.01, Total Protein 8.0, Albumin 4.3, Globulin 3.7 H, Albumin/Globulin Ratio 1.2, TSH 0.29 L 06/11/24 12:38 06/11/24 12:38 Orders (Tests/Meds): ED MEDICATIONS Discontinued Medications Generic Name Dose Route Start Last Admin Trade Name Vitoq PRN Reason Stop Dose Admin Lactated Ringer's 1,000 mls @ 999 mls/hr 06/11/24 13:00 06/11/24 12:52 Lactated Ringer's 1000 Ml Bag IV 06/11/24 14:00 999 mls/hr .Q1H1M LUIGI Administration ORDERS Category Date Time Status CXR --portable [XR chest portable] Stat Exams 06/11/24 12:46 Completed CBC w/Auto Diff [Complete Blood Count Auto Diff] Stat Lab 06/11/24 12:38 Completed CMP [Comprehensive Metabolic Panel] Stat Lab 06/11/24 12:38 Completed D-Dimer Stat Lab 06/11/24 12:38 Completed Magnesium Stat Lab 06/11/24 12:38 Completed Phosphorous Stat Lab 06/11/24 12:38 Completed Rapid PCR Covid and Flu A/B Stat Lab 06/11/24 13:00 Received TSH [Thyroid Stimulating Hormone] Stat Lab 06/11/24 12:38 Completed Trop I [Troponin I] Stat Lab 06/11/24 12:38 Completed Troponin I Q3H Lab 06/11/24 16:00 Ordered Troponin I Q3H Lab 06/11/24 19:00 Ordered Medical Decision Narrative: Well-appearing nontoxic 49-year-old female presented with normal exam. She has a GCS of 15 nonfocal neurologic exam vital signs are stable. She has a myriad of different complaints including chest pain for the last several days and dyspnea. Will get a basic workup including a D-dimer chest x-ray troponin to rule out cardiopulmonary pathology such as pulmonary embolism acute coronary syndrome myocardial injury myocarditis etc. Her facial paresthesias are nonspecific and nonfocal in the remainder of her neurologic exam and history is unremarkable. Possible she has a metabolic abnormality presenting with systemic symptoms. Will check basic blood work additionally will check thyroid function etc. Lastly could be dehydration in the setting of chronic hyperglycemia and IV fluids will be administered will reassess. Overall this does not appear to be life or limb threatening likely she will be discharged. Chest x-ray performed to person interpreted shows no acute cardiopulmonary emergencies. Labs unremarkable including D-dimer troponin. No indication for serial troponins in this patient as she has had symptoms for several days. Patient did have a abnormally low TSH she has been advised to follow-up with primary care doctor regarding this. I forgot to place an order for COVID and flu and this was placed on the back end of the evaluation this will not change management consultant but may give an answer. She is not a candidate for Paxlovid and she is out of any window for treatment for the flu. She will call back for results. She remained symptomatic and had vague symptoms upon being discharge but no emergent medical condition notified and I was comfortable with her going home and following up outpatient with a primary care doctor. Critical Care Critical Care Time Critical Care Time: No
[2024-06-11] MEDS: LACTATED RINGERS 1000ML 1,000 ML 999 ML IV (12:52)
--- NOTE | 2024-06-11 12:58 | ECG_ITS ---
APPROVED REPORT Exam: Resting ECG HR:56 bpm ECG Measurements Heart Rate 56 AXES KS 224 P 40 QRSd 114 QRS -25 QT 458 T 31 QTc 450 Conclusion Sinus bradycardia First-degree AV block KS 224 Electronically signed by : UGO HARDWICK, 06/12/2024 14:18:06
[2024-06-11 12:59] LABS: Basophils # 0.1 K/mm3 (0-0.2); Eosinophils # 0.1 K/mm3 (0.0-0.4); Eosinophils % 1.4 % (0.1-12.0); Hematocrit 46.6 % (37.0-47.0); Hemoglobin 14.9 g/dL (12.2-16.2); Lymphocytes # 2.7 K/mm3 (0.7-4.5); Lymphocytes % 30.9 % (10-50); Mean Corpuscular Hemoglobin 29.1 pg (27.0-31.2); Mean Corpuscular Volume 90.7 fl (81-99); Mean Platelet Volume 7.9 fl (7.4-10.4); Monocytes # 0.5 K/mm3 (0.1-1.0); Monocytes % 5.8 % (1.7-9.3); Neutrophils # 5.4 K/mm3 (1.8-7.8); Platelet Count 229 K/mm3 (142-424); Red Blood Count 5.14 M/mm3 (4.20-5.40); White Blood Count 8.8 K/mm3 (4.8-10.8)
[2024-06-11 13:00] VITALS: BP 144/69; PULSE 64; RESP 14; O2SAT 99
[2024-06-11 13:05] LABS: Alanine Aminotransferase 32 U/L (12-78); Albumin Level 4.3 g/dl (3.5-5.0); Albumin/Globulin Ratio 1.2 (1.1-1.8); Alkaline Phosphatase 94 U/L (38-126); Anion Gap 8.8 mEq/L (5-15); Aspartate Amino Transferase 33 U/L (14-36); Bilirubin,Total 0.5 mg/dl (0.2-1.3); Blood Urea Nitrogen 12 mg/dl (7-17); Calcium 9.6 mg/dl (8.4-10.2); Carbon Dioxide 32 mmol/L (22.0-30.0); Chloride 102 mmol/L (98-107); Creatinine Clearance Estimated 220 mL/min (50-200); Estimated Glomerular Filt Rate 132 ml/min (>60); GFR (African American) 159 ML/MIN (>60); Globulin 3.7 g/dL (1.3-3.2); Glucose 134 mg/dl (74-100); Magnesium 1.8 mg/dl (1.6-2.3); Phosphorous 3.7 mg/dl (2.5-4.5); Potassium 3.8 mmoL/L (3.5-5.1); Sodium 139 mmol/L (136-145)
[2024-06-11 13:09] LABS: D-Dimer 0.31 ug/mL (0.0-0.5)
[2024-06-11 13:22] LABS: Troponin I < 0.01 ng/ml (0.00-0.034)
[2024-06-11 13:36] LABS: Thyroid Stimulating Hormone 0.29 uIU/mL (0.465-4.68)
[2024-06-11 14:01] LABS: Coronavirus 19, PCR Not Detected (NotDetected); Influenza A, PCR Not Detected (NotDetected); Influenza B, PCR Not Detected (NotDetected)
[2024-06-11 14:05] VITALS: BP 160/89; PULSE 58; RESP 16; TEMP 36.6; O2SAT 97
--- NOTE | 2024-06-11 23:02 | PC.NURSE ---
chart accessed to give patient COVID results
== END 2024-06-11 14:06 | disposition home or self-care (01) ==
PROVIDERS: Emergency Provider Student in an Organized Health Care Education/Training Program; PCP Pediatrics
DX: R07.89 Other chest pain (principal); R06.02 Shortness of breath; R20.2 Paresthesia of skin; R94.6 Abnormal results of thyroid function studies; R53.83 Other fatigue
CPT/HCPCS: 71045; 80050; 80053; 83735; 84100; 84443; 84484; 85025; 85378; 87636; 93005; 96360; 99284; J7120

== ENCOUNTER 2024-07-23 08:07 | Emergency (ER) | payer BC, SELFPAY ==
--- NOTE | 2024-07-23 08:56 | ED_ITS ---
Discharge Plan Disposition Patient Disposition: Home, Self-Care Condition: Good Prescriptions Prescriptions: New prednisone 20 mg tablet 20 mg PO BID 3 Days Qty: 6 0RF amoxicillin 875 mg tablet 875 mg PO Q12H Qty: 20 0RF benzonatate 100 mg capsule 100 mg PO TIDP PRN (Reason: Cough) Qty: 30 0RF ondansetron 4 mg Tablet,Disintegrating 4 mg PO Q8H PRN (Reason: Nausea) Qty: 12 0RF No Action venlafaxine 75 mg capsule,extended release 24hr 75 mg PO DAILY Patient Comments: TAKE 1 CAPSULE BY MOUTH EVERY DAY famotidine 40 mg tablet 40 mg PO HS Patient Comments: TAKE 1 TABLET BY MOUTH EVERYDAY AT BEDTIME trazodone 100 mg tablet 100 mg PO DAILY Patient Comments: TAKE 1 TABLET BY MOUTH EVERY DAY AT BEDTIME FOR 30 DAYS omeprazole 20 mg capsule,delayed release(DR/EC) 20 mg PO DAILY Patient Comments: TAKE 1 CAPSULE BY MOUTH EVERY DAY ergocalciferol (vitamin D2) 1,250 mcg (50,000 unit) capsule 1,250 mcg PO WEEKLY Patient Comments: TAKE 1 CAPSULE BY MOUTH ONCE WEEKLY losartan 100 mg tablet 100 mg PO DAILY Patient Comments: TAKE 1 TABLET BY MOUTH EVERY DAY Mounjaro 10 mg/0.5 mL pen injector 10 mg SQ WEEKLY metoprolol succinate 50 mg tablet extended release 24 hr 50 mg PO DAILY Patient Comments: TAKE 1 TABLET BY MOUTH EVERY DAY Jardiance 25 mg Tablet 25 mg PO DAILY amoxicillin-pot clavulanate 875-125 mg Tablet 1 tab PO Q12H Qty: 20 0RF fluticasone propionate [Flonase Allergy Relief] 50 mcg/actuation spray,suspension 1 - 2 spray intranasal DAILY Qty: 16 0RF Rx Instructions: administer into each nostril Referrals Follow up/Referrals: Gavin Jo [Primary Care Provider] - See instructions Activity Restrictions/Add. Instructions Additional Instructions/Restrictions: Drink plenty of fluids. Take tylenol or ibuprofen for pain or fever. Take the medications as directed. Follow up with your regular doctor. GO TO THE ER FOR ANY WORSENING SYMPTOMS Throw your tooth brush away and get a new one. The oral steroids (prednisone) will make your blood sugars be elevated. Please watch your blood sugars closely and follow your diabetic diet closely while you are on them. Clinical Impressions Clinical Impression: Strep throat Stand Alone Forms Stand Alone Forms: Work/School Release Instructions Patient Instructions: Strep Throat, DI for Strep Throat Print Language Print Language: Ghanaian Discharge ED Provider: Andre Ochoa [facility] General Stated complaint: possible strep Time Seen by Provider: 07/23/24 08:55 Related Data Home Medications ?Medication ?Instructions ?Recorded ?Confirmed empagliflozin 25 mg tablet 25 mg PO DAILY 05/22/24 05/22/24 (Jardiance) ergocalciferol (vitamin D2) 1,250 1,250 mcg PO WEEKLY 05/22/24 05/22/24 mcg (50,000 unit) capsule famotidine 40 mg tablet 40 mg PO HS 05/22/24 05/22/24 losartan 100 mg tablet 100 mg PO DAILY 05/22/24 05/22/24 metoprolol succinate 50 mg 50 mg PO DAILY 05/22/24 05/22/24 tablet,extended release 24 hr omeprazole 20 mg capsule,delayed 20 mg PO DAILY 05/22/24 05/22/24 release tirzepatide 10 mg/0.5 mL 10 mg SQ WEEKLY 05/22/24 05/22/24 subcutaneous pen injector (Williams) trazodone 100 mg tablet 100 mg PO DAILY 05/22/24 05/22/24 venlafaxine 75 mg capsule,extended 75 mg PO DAILY 05/22/24 05/22/24 release 24 hr Previous Rx's ?Medication ?Instructions ?Recorded amoxicillin 875 mg-potassium 1 tab PO Q12H #20 tabs 05/22/24 clavulanate 125 mg tablet fluticasone propionate 50 1 - 2 spray intranasal DAILY #16 05/22/24 mcg/actuation nasal grams spray,suspension (Flonase Allergy Relief) amoxicillin 875 mg tablet 875 mg PO Q12H #20 tabs 07/23/24 benzonatate 100 mg capsule 100 mg PO TIDP PRN Cough #30 caps 07/23/24 ondansetron 4 mg disintegrating 4 mg PO Q8H PRN Nausea #12 tabs 07/23/24 tablet prednisone 20 mg tablet 20 mg PO BID 3 days #6 tabs 07/23/24 Allergies Allergy/AdvReac Type Severity Reaction Status Date / Time erythromycin base Allergy Unknown Verified 01/09/24 12:36 allergy reaction [facility] Disclaimer: The information contained in this section may have been updated after the patient was seen, as this information can be updated by other users. Medical History (Updated 07/23/24 @ 09:23 by Andre Ochoa APRN) Depression Anxiety History of gastroesophageal reflux (GERD) Diabetes mellitus, type 2 Hypertension Surgical History (Updated 05/22/24 @ 10:27 by Kati Le RN) History of section History of cholecystectomy History of hysterectomy Social History Smoking Status: Never smoker alcohol intake: never substance use type: denies use current occupational status: employed Travel in the last 8 weeks: None ROS Obtained: Yes All systems reviewed & no additional complaints except as documented Constitutional Constitutional: Reports chills and Reports fever(s) Eyes Eyes: Denies eye discharge ENT Ears, Nose, Mouth, and Throat: Reports as per HPI Cardiovascular Cardiovascular: Denies chest pain Respiratory Respiratory: Denies chest congestion and Reports cough Gastrointestinal Gastrointestingal: Reports nausea; Denies abdominal pain, constipation, cramping, diarrhea or vomiting Musculoskeletal Musculoskeletal: Denies arthralgias Integumentary/Breasts Skin/Breast: Denies rash Neurologic Neurologic: Denies paresthesias Physical Exam General General appearance: alert and in no apparent distress Head Head exam: atraumatic, normocephalic and normal inspection Eye Eye exam: Present normal appearance, PERRL and EOMI ENT ENT exam: Present mucous membranes moist and normal external ear exam Expanded ENT Exam TM/Canal exam: Bilateral TM: erythema and bulging Nose exam: Absent sinus tenderness Mouth exam: Present normal external inspection; Absent drooling Teeth exam: Present normal inspection Throat exam: Present tonsillar erythema, tonsillomegaly and tonsillar exudate Neck Neck exam: Present normal inspection, full ROM and trachea midline; Absent tenderness, meningismus or lymphadenopathy Chest Chest inspection: Present normal inspection and symmetric chest wall rise; Absent tenderness Respiratory Respiratory exam: Present normal lung sounds bilaterally; Absent respiratory distress, wheezes, stridor or accessory muscle use Cardiovascular Cardiovascular exam: Present regular rate and normal rhythm; Absent systolic murmur or diastolic murmur Abdominal Exam Abdominal exam: Present soft and normal bowel sounds; Absent distention, tenderness, guarding, rebound or rigidity Extremities Exam Extremities exam: Present normal inspection and normal capillary refill; Absent calf tenderness Back Exam Back exam: Present normal inspection and full ROM; Absent tenderness, CVA tenderness (R) or CVA tenderness (L) Neurological Exam Neurological exam: Present alert, oriented X3 and CN II-XII intact Psychiatric Psychiatric exam: Present normal affect and normal mood Skin Skin exam: Present warm, dry, intact and normal color Medical Decision Making Medical Records Medical records reviewed: No I reviewed the patient's medical records. Screening: Per USPSTF and CDC recommendations, given the prevalence of disease in our region, it is our hospital?s policy to screen for HIV and viral Hepatitis for all patients aged 18 and over and those with ongoing risk factors. Gulshan Inquiry Pt receiving controlled substance: No Lab Data Lab results reviewed: Yes I reviewed the patient's lab results.
[2024-07-23 09:05] VITALS: BP 150/86; PULSE 80; RESP 20; TEMP 36.5; O2SAT 97; BMI 41.3
[2024-07-23 09:14] LABS: UTC Strep Screen (Rapid) Positive (Negative)
[2024-07-23 09:24] VITALS: BP 150/86; PULSE 80; RESP 20; TEMP 36.5; O2SAT 97
== END 2024-07-23 09:28 | disposition home or self-care (01) ==
PROVIDERS: Emergency Provider Nurse Practitioner Family; PCP Pediatrics
DX: J02.0 Streptococcal pharyngitis (principal); R50.9 Fever, unspecified
CPT/HCPCS: 87880; 99212; 99214; G0463

== ENCOUNTER 2024-07-28 08:28 | Emergency (ER) | payer BC, SELFPAY ==
[2024-07-28 08:41] VITALS: BP 156/99; PULSE 80; RESP 18; TEMP 36.8; O2SAT 97; BMI 38.4
[2024-07-28 08:52] LABS: UTC Strep Screen (Rapid) Negative (Negative)
--- NOTE | 2024-07-28 08:59 | EXP.UTC ---
Discharge Plan Disposition Patient Disposition: Home, Self-Care Condition: Good Prescriptions Prescriptions: New loratadine 10 mg tablet 10 mg PO DAILY Qty: 30 2RF guaifenesin 400 mg tablet 400 mg PO QID Qty: 30 0RF No Action venlafaxine 75 mg capsule,extended release 24hr 75 mg PO DAILY Patient Comments: TAKE 1 CAPSULE BY MOUTH EVERY DAY losartan 100 mg tablet 100 mg PO DAILY Patient Comments: TAKE 1 TABLET BY MOUTH EVERY DAY Mounjaro 10 mg/0.5 mL pen injector 10 mg SQ WEEKLY Jardiance 25 mg Tablet 25 mg PO DAILY amoxicillin 875 mg tablet 875 mg PO Q12H Qty: 20 0RF Referrals Follow up/Referrals: Gavin Jo [Primary Care Provider] - See instructions Activity Restrictions/Add. Instructions Additional Instructions/Restrictions: Finish antibiotics. Take medication as prescribed. Increase fluids and rest. If symptoms persist or worsen, follow up with PCP or return to clinic. Clinical Impressions Clinical Impression: Upper respiratory tract infection Qualifiers: URI type: unspecified viral URI Qualified Code(s): J06.9 - Acute upper respiratory infection, unspecified Instructions Patient Instructions: DI for Viral Upper Respiratory Infection -- Adult Print Language Print Language: Moroccan Discharge ED Provider: Edith Heller [facility] [place] [facility] [place] General Stated complaint: sore throat, cough, strep+ Mode of Arrival: Ambulatory Source of Information: Patient Time Seen by Provider: 07/28/24 08:59 Description of Symptoms (Recalled from Triage Doc. by RN): WAS SEEN ON TUESDAY FOR STREP, RX'ED ABX BUT NOT FEELING BETTER, C/O SORE THROAT, EAR PAIN AND BEING DIZZY AT TIMES HEENT Symptoms (Recalled from RN notes): Yes Resp Symptoms (Recalled from RN notes): No Skin Symptoms (Recalled from RN notes): No MS Symptoms (Recalled from RN notes): No Functional Status (Recalled from RN notes): WNL History of Present Illness Provider Complaint: Pt reports that she was seen on Tuesday and had strep and has been on Amoxicillin this week. She states that she has had clear sinus drainage, cough, and sore throat and now feels worse that she did on Tuesday. Related Data Home Medications ?Medication ?Instructions ?Recorded ?Confirmed empagliflozin 25 mg tablet 25 mg PO DAILY 05/22/24 07/28/24 (Jardiance) losartan 100 mg tablet 100 mg PO DAILY 05/22/24 07/28/24 tirzepatide 10 mg/0.5 mL 10 mg SQ WEEKLY 05/22/24 07/28/24 subcutaneous pen injector (Williams) venlafaxine 75 mg capsule,extended 75 mg PO DAILY 05/22/24 07/28/24 release 24 hr Previous Rx's ?Medication ?Instructions ?Recorded amoxicillin 875 mg tablet 875 mg PO Q12H #20 tabs 07/23/24 guaifenesin 400 mg tablet 400 mg PO QID #30 tabs 07/28/24 loratadine 10 mg tablet 10 mg PO DAILY #30 tabs 07/28/24 Allergies Allergy/AdvReac Type Severity Reaction Status Date / Time erythromycin base Allergy Unknown Verified 01/09/24 12:36 allergy reaction Worker's Comp Is this a Worker's Comp case?: No [facility] Disclaimer: The information contained in this section may have been updated after the patient was seen, as this information can be updated by other users. Medical History (Updated 07/28/24 @ 09:11 by Edith Heller APRN) Depression Anxiety History of gastroesophageal reflux (GERD) Diabetes mellitus, type 2 Hypertension Surgical History (Updated 05/22/24 @ 10:27 by Kati Le RN) History of section History of cholecystectomy History of hysterectomy Social History Smoking Status: Never smoker alcohol intake: never substance use type: denies use current occupational status: employed Travel in the last 8 weeks: None ROS Obtained: Yes All systems reviewed & no additional complaints except as documented Constitutional Constitutional: Reports system reviewed and no additional complaints, except as documented, Reports headache(s) and Reports malaise Eyes Eyes: Reports system reviewed and no additional complaints, except as documented ENT Ears, Nose, Mouth, and Throat: Reports system reviewed and no additional complaints, except as documented, Reports headache(s), Reports nasal discharge, Reports odynophagia and Reports post nasal drip Cardiovascular Cardiovascular: Reports system reviewed and no additional complaints, except as documented Respiratory Respiratory: Reports system reviewed and no additional complaints, except as documented and Reports non-productive cough Gastrointestinal Gastrointestingal: Reports system reviewed and no additional complaints, except as documented and odynophagia Genitourinary Female Genitourinary: Reports system reviewed and no additional complaints, except as documented Musculoskeletal Musculoskeletal: Reports system reviewed and no additional complaints, except as documented Integumentary/Breasts Skin/Breast: Reports system reviewed and no additional complaints, except as documented Neurologic Neurologic: Reports system reviewed and no additional complaints, except as documented and Reports headache(s) Endocrine Endocrine: Reports system reviewed and no additional complaints, except as documented Hematologic/Lymphatic Henatologic/Lymphatic: Reports system reviewed and no additional complaints, except as documented Allergic/Immunologic Allergic/Immunologic: Reports system reviewed and no additional complaints, except as documented Physical Exam General General appearance: alert and in no apparent distress Head Head exam: atraumatic and normocephalic Eye Eye exam: Present normal appearance ENT ENT exam: Present mucous membranes moist Expanded ENT Exam External ear exam: Present normal external inspection Nasal speculum exam: Bilateral: normal Mouth exam: Present normal external inspection Teeth exam: Present normal inspection Throat exam: Present tonsillar erythema Comment: post nasal drip noted Neck Neck exam: Present normal inspection; Absent lymphadenopathy Chest Chest inspection: Present normal inspection and symmetric chest wall rise Respiratory Respiratory exam: Present normal lung sounds bilaterally Cardiovascular Cardiovascular exam: Present regular rate and normal rhythm Abdominal Exam Abdominal exam: Present soft and normal bowel sounds Extremities Exam Extremities exam: Present normal inspection Back Exam Back exam: Present normal inspection Neurological Exam Neurological exam: Present alert and oriented X3 Psychiatric Psychiatric exam: Present normal affect and normal mood Skin Skin exam: Present warm, dry and intact Lymphatic Lymphatic Findings: no adenopathy Medical Decision Making Medical Records Screening: Per USPSTF and CDC recommendations, given the prevalence of disease in our region, it is our hospital?s policy to screen for HIV and viral Hepatitis for all patients aged 18 and over and those with ongoing risk factors. Gulshan Inquiry Pt receiving controlled substance: No Gulshan was queried for this patient: No Vital Signs: 07/28/24 08:41 Temperature 98.2 F Temperature Source Oral Pulse Rate [Left Radial] 80 Respiratory Rate 18 Blood Pressure [Left Arm] 156/99 H Blood Pressure Mean [Left Arm] 118 02 Sat by Pulse Oximetry 97 Lab Data Lab results reviewed: Yes I reviewed the patient's lab results. Lab Results 07/28/24 08:52: Strep Scn Rapid Clinic Negative Orders (Tests/Meds): ORDERS Category Date Time Status Strep Screen Confirmation Stat Micro 07/28/24 08:52 Received
[2024-07-28 09:05] VITALS: BP 145/62
[2024-07-28 09:13] VITALS: BP 145/62; PULSE 80; RESP 18; TEMP 36.8
== END 2024-07-28 09:14 | disposition home or self-care (01) ==
PROVIDERS: Emergency Provider Nurse Practitioner Family; PCP Pediatrics
DX: J06.9 Acute upper respiratory infection, unspecified (principal)
CPT/HCPCS: 87880; 99213; G0381

== ENCOUNTER 2024-10-25 09:14 | Emergency (ER) | payer OTHER, SELFPAY ==
[2024-10-25 09:43] VITALS: BP 152/87; PULSE 75; RESP 18; TEMP 36.4; O2SAT 96; BMI 37.2
[2024-10-25 09:56] LABS: UTC Strep Screen (Rapid) Negative (Negative)
--- NOTE | 2024-10-25 10:06 | EXP.UTC ---
Discharge Plan Disposition Patient Disposition: Home, Self-Care Condition: Good Prescriptions Prescriptions: New benzonatate 100 mg capsule 100 mg PO TIDP PRN (Reason: Cough) Qty: 30 0RF methylprednisolone 4 mg Tablets,Dose Pack 4 mg PO DIRECTED 6 Days Qty: 21 0RF Rx Instructions: Take 1 pack as directed for 6 days No Action venlafaxine 75 mg capsule,extended release 24hr 75 mg PO DAILY Patient Comments: TAKE 1 CAPSULE BY MOUTH EVERY DAY losartan 100 mg tablet 100 mg PO DAILY Patient Comments: TAKE 1 TABLET BY MOUTH EVERY DAY Mounjaro 10 mg/0.5 mL pen injector 10 mg SQ WEEKLY Jardiance 25 mg Tablet 25 mg PO DAILY Referrals Follow up/Referrals: Gavin Jo [Primary Care Provider] - See instructions Activity Restrictions/Add. Instructions Additional Instructions/Restrictions: Drink plenty of fluids. Take tylenol or ibuprofen for pain or fever. Take the medications as directed. Follow up with your regular doctor. GO TO THE ER FOR ANY WORSENING SYMPTOMS Clinical Impressions Clinical Impression: Pharyngitis Stand Alone Forms Stand Alone Forms: Work/School Release Instructions Patient Instructions: Sore Throat, DI for Pharyngitis/Tonsillopharyngitis -- Adult Print Language Print Language: Czech Discharge ED Provider: Andre Ochoa [facility] General Stated complaint: H/A, sore throat, B/A Mode of Arrival: Ambulatory Source of Information: Patient Time Seen by Provider: 10/25/24 10:03 Description of Symptoms (Recalled from Triage Doc. by RN): SORE THROAT, SCHMITT, ACHY, LOST VOICE HEENT Symptoms (Recalled from RN notes): Yes Resp Symptoms (Recalled from RN notes): No Skin Symptoms (Recalled from RN notes): No MS Symptoms (Recalled from RN notes): No Functional Status (Recalled from RN notes): WNL History of Present Illness Provider Complaint: She states that for the past 2 days she has had sore throat, sinus drainage, body aches and chills. Related Data Home Medications ?Medication ?Instructions ?Recorded ?Confirmed empagliflozin 25 mg tablet 25 mg PO DAILY 05/22/24 10/25/24 (Jardiance) losartan 100 mg tablet 100 mg PO DAILY 05/22/24 10/25/24 tirzepatide 10 mg/0.5 mL 10 mg SQ WEEKLY 05/22/24 10/25/24 subcutaneous pen injector (Williams) venlafaxine 75 mg capsule,extended 75 mg PO DAILY 05/22/24 10/25/24 release 24 hr Previous Rx's ?Medication ?Instructions ?Recorded benzonatate 100 mg capsule 100 mg PO TIDP PRN Cough #30 caps 10/25/24 methylprednisolone 4 mg tablets in 4 mg PO DIRECTED 6 days #21 tabs 10/25/24 a dose pack Allergies Allergy/AdvReac Type Severity Reaction Status Date / Time erythromycin base Allergy Unknown Verified 01/09/24 12:36 allergy reaction Worker's Comp Is this a Worker's Comp case?: No [facility] Disclaimer: The information contained in this section may have been updated after the patient was seen, as this information can be updated by other users. Medical History (Updated 10/25/24 @ 10:27 by Andre Ochoa APRN) Depression Anxiety History of gastroesophageal reflux (GERD) Diabetes mellitus, type 2 Hypertension Surgical History (Updated 05/22/24 @ 10:27 by Kati Le RN) History of section History of cholecystectomy History of hysterectomy Social History Smoking Status: Never smoker alcohol intake: never substance use type: denies use current occupational status: employed Travel in the last 8 weeks: None Have you lived/traveled outside [place] in past 30 days?: No Contact w/someone who lives/traveled outside [place] past 30 days?: No Exposure to someone with infectious disease in past 14 days?: No Do you have a fever (greater than 100.4 F or 38 C)?: No Have you tested positive for COVID-19: No Exposed to someone with COVID-19 in past 14 days?: No Do you have a sore throat?: Yes Do you have a cough?: No Do you have any weakness?: No Do you have any diarrhea?: No Are you experiencing any unusual bleeding?: No Do you have any muscle aches/pain?: No Do you have any abdominal pain?: No Are you experiencing loss of taste or smell?: No ROS Obtained: Yes All systems reviewed & no additional complaints except as documented Constitutional Constitutional: Reports chills and Reports fever(s) Eyes Eyes: Denies eye discharge ENT Ears, Nose, Mouth, and Throat: Reports as per HPI Cardiovascular Cardiovascular: Denies chest pain Respiratory Respiratory: Denies chest congestion and Reports cough Gastrointestinal Gastrointestingal: Reports nausea; Denies abdominal pain, constipation, cramping, diarrhea or vomiting Musculoskeletal Musculoskeletal: Denies arthralgias Integumentary/Breasts Skin/Breast: Denies rash Neurologic Neurologic: Denies paresthesias Physical Exam General General appearance: alert and in no apparent distress Head Head exam: atraumatic, normocephalic and normal inspection Eye Eye exam: Present normal appearance, PERRL and EOMI ENT ENT exam: Present mucous membranes moist and normal external ear exam Expanded ENT Exam TM/Canal exam: Bilateral TM: erythema and bulging Nose exam: Absent sinus tenderness Mouth exam: Present normal external inspection; Absent drooling Teeth exam: Present normal inspection Throat exam: Present tonsillar erythema, tonsillomegaly and tonsillar exudate Neck Neck exam: Present normal inspection, full ROM and trachea midline; Absent tenderness, meningismus or lymphadenopathy Chest Chest inspection: Present normal inspection and symmetric chest wall rise; Absent tenderness Respiratory Respiratory exam: Present normal lung sounds bilaterally; Absent respiratory distress, wheezes, stridor or accessory muscle use Cardiovascular Cardiovascular exam: Present regular rate and normal rhythm; Absent systolic murmur or diastolic murmur Abdominal Exam Abdominal exam: Present soft and normal bowel sounds; Absent distention, tenderness, guarding, rebound or rigidity Extremities Exam Extremities exam: Present normal inspection and normal capillary refill; Absent calf tenderness Back Exam Back exam: Present normal inspection and full ROM; Absent tenderness, CVA tenderness (R) or CVA tenderness (L) Neurological Exam Neurological exam: Present alert, oriented X3 and CN II-XII intact Psychiatric Psychiatric exam: Present normal affect and normal mood Skin Skin exam: Present warm, dry, intact and normal color Medical Decision Making Medical Records Medical records reviewed: No I reviewed the patient's medical records. Screening: Per USPSTF and CDC recommendations, given the prevalence of disease in our region, it is our hospital?s policy to screen for HIV and viral Hepatitis for all patients aged 18 and over and those with ongoing risk factors. Gulshan Inquiry Pt receiving controlled substance: No Vital Signs: 10/25/24 09:43 Temperature 97.6 F Temperature Source Oral Pulse Rate [Left Brachial] 75 Respiratory Rate 18 Blood Pressure [Left Arm] 152/87 H Blood Pressure Mean [Left Arm] 108 02 Sat by Pulse Oximetry 96 Lab Data Lab results reviewed: Yes I reviewed the patient's lab results. Lab Results 10/25/24 09:55: Strep Scn Rapid Clinic Negative Orders (Tests/Meds): ORDERS Category Date Time Status Strep Screen Confirmation Stat Micro 10/25/24 09:55 Received
[2024-10-25 10:21] LABS: UTC Influenza A Antigen Negative (Negative); UTC Influenza B Antigen Negative (Negative)
[2024-10-25 10:32] VITALS: BP 152/87; PULSE 75; RESP 18; TEMP 36.4
[2024-10-25 10:35] LABS: Coronavirus 19, PCR Not Detected (NotDetected); Influenza A, PCR Not Detected (NotDetected); Influenza B, PCR Not Detected (NotDetected)
== END 2024-10-25 10:32 | disposition home or self-care (01) ==
PROVIDERS: Emergency Provider Nurse Practitioner Family; PCP Pediatrics
DX: J02.9 Acute pharyngitis, unspecified (principal)
CPT/HCPCS: 87636; 87804; 87880; 99213; G0381

== ENCOUNTER 2024-11-11 11:37 | Emergency (ER) | payer OTHER, BC, SELFPAY ==
[2024-11-11 11:45] VITALS: BP 141/89; PULSE 74; RESP 18; TEMP 36.6; O2SAT 98; BMI 38.4
--- NOTE | 2024-11-11 12:00 | ED_ITS ---
Discharge Plan Disposition Patient Disposition: Home, Self-Care Condition: Good Prescriptions Prescriptions: New triamcinolone acetonide 0.1 % cream 1 applic topical TID Qty: 30 0RF No Action venlafaxine 75 mg capsule,extended release 24hr 75 mg PO DAILY Patient Comments: TAKE 1 CAPSULE BY MOUTH EVERY DAY losartan 100 mg tablet 100 mg PO DAILY Patient Comments: TAKE 1 TABLET BY MOUTH EVERY DAY Mounjaro 10 mg/0.5 mL pen injector 10 mg SQ WEEKLY Jardiance 25 mg Tablet 25 mg PO DAILY Referrals Follow up/Referrals: Gavin Jo [Primary Care Provider] - See instructions Clinical Impressions Clinical Impression: Eczema of external ear Instructions Patient Instructions: DI for Atopic Dermatitis-Adult, Prevent Eczema in Kids with a Daily Dose of Moisturizer Print Language Print Language: New Zealander Discharge ED Provider: Edith Heller [facility] [place] General Stated complaint: eczema on right side of face, swollen Mode of Arrival: Ambulatory Source of Information: Patient Limitations: No Limitations Time Seen by Provider: 11/11/24 11:49 Description of Symptoms (Recalled from Triage Doc. by RN): PATIENT C/O RIGHT EAR PAIN DUE TO ECZEMA SINCE LAST NIGHT HEENT Symptoms (Recalled from RN notes): No Resp Symptoms (Recalled from RN notes): No Skin Symptoms (Recalled from RN notes): Yes MS Symptoms (Recalled from RN notes): No Functional Status (Recalled from RN notes): WNL History of Present Illness Provider Complaint: Pt reports a long standing issues with eczema. She states that she is out of her usual medication for a flare. She states that both ears are red and itchy, but the right ear is swollen and painful as well. Related Data Home Medications ?Medication ?Instructions ?Recorded ?Confirmed empagliflozin 25 mg tablet 25 mg PO DAILY 05/22/24 11/11/24 (Jardiance) losartan 100 mg tablet 100 mg PO DAILY 05/22/24 11/11/24 tirzepatide 10 mg/0.5 mL 10 mg SQ WEEKLY 05/22/24 11/11/24 subcutaneous pen injector (Mounjaro) venlafaxine 75 mg capsule,extended 75 mg PO DAILY 05/22/24 11/11/24 release 24 hr Previous Rx's ?Medication ?Instructions ?Recorded triamcinolone acetonide 0.1 % 1 applic topical TID #30 grams 11/11/24 topical cream Allergies Allergy/AdvReac Type Severity Reaction Status Date / Time erythromycin base Allergy Unknown Verified 01/09/24 12:36 allergy reaction Worker's Comp Is this a Worker's Comp case?: No [facility] Disclaimer: The information contained in this section may have been updated after the patient was seen, as this information can be updated by other users. Medical History (Updated 11/11/24 @ 12:06 by Edith Heller APRN) Depression Anxiety History of gastroesophageal reflux (GERD) Diabetes mellitus, type 2 Hypertension Surgical History (Updated 05/22/24 @ 10:27 by Kati Le RN) History of section History of cholecystectomy History of hysterectomy Social History Smoking Status: Never smoker alcohol intake: never substance use type: denies use current occupational status: employed Travel in the last 8 weeks: None Have you lived/traveled outside US in past 30 days?: No Contact w/someone who lives/traveled outside US past 30 days?: No Exposure to someone with infectious disease in past 14 days?: No Do you have a fever (greater than 100.4 F or 38 C)?: No Have you tested positive for COVID-19: No Exposed to someone with COVID-19 in past 14 days?: No Do you have a sore throat?: No Do you have a cough?: No Do you have any weakness?: No Do you have any diarrhea?: No Are you experiencing any unusual bleeding?: No Do you have any muscle aches/pain?: No Do you have any abdominal pain?: No Are you experiencing loss of taste or smell?: No ROS Obtained: Yes All systems reviewed & no additional complaints except as documented Constitutional Constitutional: Reports system reviewed and no additional complaints, except as documented Eyes Eyes: Reports system reviewed and no additional complaints, except as documented ENT Ears, Nose, Mouth, and Throat: Reports system reviewed and no additional complaints, except as documented Cardiovascular Cardiovascular: Reports system reviewed and no additional complaints, except as documented Respiratory Respiratory: Reports system reviewed and no additional complaints, except as documented Gastrointestinal Gastrointestingal: Reports system reviewed and no additional complaints, except as documented Genitourinary Female Genitourinary: Reports system reviewed and no additional complaints, except as documented Musculoskeletal Musculoskeletal: Reports system reviewed and no additional complaints, except as documented Integumentary/Breasts Skin/Breast: Reports system reviewed and no additional complaints, except as documented, Reports as per HPI, Reports dry skin, Reports redness, Reports pruritus and Reports skin pain Neurologic Neurologic: Reports system reviewed and no additional complaints, except as documented Endocrine Endocrine: Reports system reviewed and no additional complaints, except as documented Hematologic/Lymphatic Henatologic/Lymphatic: Reports system reviewed and no additional complaints, except as documented Allergic/Immunologic Allergic/Immunologic: Reports system reviewed and no additional complaints, except as documented Physical Exam General General appearance: alert and in no apparent distress Head Head exam: atraumatic Eye Eye exam: Present normal appearance Expanded ENT Exam External ear exam: Present pain with movement and external tenderness Nose exam: Absent sinus tenderness Nasal speculum exam: Bilateral: normal Mouth exam: Present normal external inspection Teeth exam: Present normal inspection Throat exam: Present normal inspection Neck Neck exam: Present normal inspection; Absent lymphadenopathy Chest Chest inspection: Present normal inspection and symmetric chest wall rise Respiratory Respiratory exam: Present normal lung sounds bilaterally Cardiovascular Cardiovascular exam: Present regular rate and normal rhythm Abdominal Exam Abdominal exam: Present soft Extremities Exam Extremities exam: Present normal inspection Back Exam Back exam: Present normal inspection Neurological Exam Neurological exam: Present alert and oriented X3 Psychiatric Psychiatric exam: Present normal affect and normal mood Skin Skin exam: Present warm, dry, intact and other (eczema noted on bilateral ears) Lymphatic Lymphatic Findings: no adenopathy Medical Decision Making Medical Records Screening: Per USPSTF and CDC recommendations, given the prevalence of disease in our region, it is our hospital?s policy to screen for HIV and viral Hepatitis for all patients aged 18 and over and those with ongoing risk factors. Gulshan Inquiry Pt receiving controlled substance: No Gulshan was queried for this patient: No Vital Signs: 11/11/24 11:45 Temperature 97.9 F Temperature Source Oral Pulse Rate [Left Brachial] 74 Respiratory Rate 18 Blood Pressure [Left Arm] 141/89 H Blood Pressure Mean [Left Arm] 106 Blood Pressure Source [Left Arm] Automatic Cuff Blood Pressure Position [Left Arm] Sitting 02 Sat by Pulse Oximetry 98 Oxygen Delivery Method Room Air
[2024-11-11 12:05] VITALS: BP 141/89; PULSE 74; RESP 18; TEMP 36.6; O2SAT 98
== END 2024-11-11 12:07 | disposition home or self-care (01) ==
PROVIDERS: Emergency Provider Nurse Practitioner Family; PCP Pediatrics
DX: H60.541 Acute eczematoid otitis externa, right ear (principal); H92.01 Otalgia, right ear; L29.9 Pruritus, unspecified
CPT/HCPCS: 99212; G0381

== ENCOUNTER 2024-11-12 19:50 | Emergency (ER) | payer OTHER, BC, SELFPAY ==
[2024-11-12 19:52] VITALS: BP 160/102; PULSE 74; RESP 16; TEMP 36.4; O2SAT 97; BMI 37.1
--- NOTE | 2024-11-12 20:48 | HMH.EDGENADL ---
Discharge Plan Disposition Patient Disposition: Home, Self-Care Prescriptions Prescriptions: New levofloxacin 750 mg tablet 750 mg PO DAILY 10 Days Qty: 10 0RF No Action venlafaxine 75 mg capsule,extended release 24hr 75 mg PO DAILY Patient Comments: TAKE 1 CAPSULE BY MOUTH EVERY DAY losartan 100 mg tablet 100 mg PO DAILY Patient Comments: TAKE 1 TABLET BY MOUTH EVERY DAY Mounjaro 10 mg/0.5 mL pen injector 10 mg SQ WEEKLY Jardiance 25 mg Tablet 25 mg PO DAILY triamcinolone acetonide 0.1 % cream 1 applic topical TID Qty: 30 0RF Referrals Follow up/Referrals: Gavin Jo [Primary Care Provider] - See instructions Activity Restrictions/Add. Instructions Additional Instructions/Restrictions: Call your family doctor to establish care for this visit to the emergency department and schedule follow-up within 48 hours to ensure improvement. If you have any worsening of your condition or any other concerning signs or symptoms, return to the emergency department or your primary care doctor for further evaluation. Antibiotic each day for the next 10 days Clinical Impressions Clinical Impression: Chondritis of right external ear Instructions Patient Instructions: DI for Skin Abscess Print Language Print Language: Bruneian Discharge ED Provider: William Issa General Adult HPI General Chief complaint: Skin/Abscess/Foreign Body Stated complaint: red/painful/irritation left ear nausea dizzines Time Seen by Provider: 11/12/24 20:39 Mode of Arrival: Ambulatory Source of Information: Patient Limitations: No Limitations Description of Symptoms (Recalled from ER Triage Doc. by RN): pt reports she was seen yesterday in the [facility] and was told she was having an eczema flair up in her right ear. today the ear became res and swollen. pt is also dizzy and nauseous and expierencing jaw pain that radiates to her collar bone History of Present Illness HPI narrative: Please note that above description of symptoms, in this electronic medical record under categorization of recalled from ER triage doctor by RN are reflective of an initial nursing assessment, however, is not reflective of my full history and physical exam that was personally taken and clarified. Consequentially, this preceding description of symptoms, which may include the patient's categorized chief complaint in the EMR, do not reflect my personal clinical impression, and the ultimate description of history of present illness and patient stated complaints should be deferred to this section of the note. Unless stated otherwise or congruent with this section of the note, additional signs, symptoms, or incongruence should be interpreted as inaccurate with my clinical impression. Related Data Home Medications ?Medication ?Instructions ?Recorded ?Confirmed empagliflozin 25 mg tablet 25 mg PO DAILY 05/22/24 11/11/24 (Jardiance) losartan 100 mg tablet 100 mg PO DAILY 05/22/24 11/11/24 tirzepatide 10 mg/0.5 mL 10 mg SQ WEEKLY 05/22/24 11/11/24 subcutaneous pen injector (Mounjaro) venlafaxine 75 mg capsule,extended 75 mg PO DAILY 05/22/24 11/11/24 release 24 hr Previous Rx's ?Medication ?Instructions ?Recorded triamcinolone acetonide 0.1 % 1 applic topical TID #30 grams 11/11/24 topical cream levofloxacin 750 mg tablet 750 mg PO DAILY 10 days #10 tabs 11/12/24 Allergies Allergy/AdvReac Type Severity Reaction Status Date / Time erythromycin base Allergy Unknown Verified 01/09/24 12:36 allergy reaction [facility] Disclaimer: The information contained in this section may have been updated after the patient was seen, as this information can be updated by other users. Medical History (Updated 11/12/24 @ 20:57 by William Issa MD) Depression Anxiety History of gastroesophageal reflux (GERD) Diabetes mellitus, type 2 Hypertension Surgical History (Updated 05/22/24 @ 10:27 by Kati Le RN) History of section History of cholecystectomy History of hysterectomy Social History Smoking Status: Never smoker alcohol intake: never substance use type: denies use current occupational status: employed Travel in the last 8 weeks: None Have you lived/traveled outside US in past 30 days?: No Contact w/someone who lives/traveled outside US past 30 days?: No Exposure to someone with infectious disease in past 14 days?: No Do you have a fever (greater than 100.4 F or 38 C)?: No Have you tested positive for COVID-19: No Exposed to someone with COVID-19 in past 14 days?: No Do you have a sore throat?: No Do you have a cough?: No Do you have any weakness?: No Do you have any diarrhea?: No Are you experiencing any unusual bleeding?: No Do you have any muscle aches/pain?: No Do you have any abdominal pain?: No Are you experiencing loss of taste or smell?: No Other Medical History Have you received the Flu Vaccine for this season: No ROS Obtained: Yes All systems reviewed & no additional complaints except as documented Physical Exam General General appearance: alert Head Head exam: atraumatic and normocephalic Eye Eye exam: Present normal appearance, PERRL and EOMI ENT ENT exam: Present TM's normal bilaterally and other (Chondritis of the right ear.); Absent normal external ear exam Neck Neck exam: Present normal inspection, full ROM and trachea midline Respiratory Respiratory exam: Absent respiratory distress, wheezes, stridor, accessory muscle use or prolonged expiratory phase Cardiovascular Cardiovascular exam: Present other (Pulses equal symmetric in upper and lower extremities) Abdominal Exam Abdominal exam: Present soft; Absent distention, tenderness or pulsatile mass Extremities Exam Extremities exam: Absent edema Neurological Exam Neurological exam: Present alert, oriented X3 and CN II-XII intact; Absent motor sensory deficit Skin Skin exam: Present warm and dry; Absent diaphoresis or erythema Medical Decision Making Medical Records Medical records reviewed: Yes I reviewed the patient's medical records. Screening: Per USPSTF and CDC recommendations, given the prevalence of disease in our region, it is our hospital?s policy to screen for HIV and viral Hepatitis for all patients aged 18 and over and those with ongoing risk factors. Gulshan Inquiry Pt receiving controlled substance: No Gulshan was queried for this patient: No Vital Signs: 11/12/24 19:52 Temperature 97.6 F Temperature Source Oral Pulse Rate [Right] 74 Respiratory Rate 16 Blood Pressure [Right Arm] 160/102 H Blood Pressure Mean [Right Arm] 121 02 Sat by Pulse Oximetry 97 Oxygen Delivery Method Room Air Orders (Tests/Meds): ED MEDICATIONS Generic Name Dose Route Start Last Admin Trade Name Freq PRN Reason Stop Dose Admin Levofloxacin 750 mg 11/12/24 20:47 Levofloxacin 750 Mg Tablet PO 11/12/24 20:48 ONCE ONE Medical Decision Narrative: 49-year-old female history of diabetes presenting with right ear pain. She states that this been going on for a couple days at this point. No fevers or chills, but it is progressively red and swollen. Was seen in the urgent care and prescribed steroid cream for presumed eczema of the ear. Came in because it has not been getting any better. Pain is moderate in intensity, radiates down to her jaw. History was obtained via conversation with patient. On arrival, patient hemodynamically stable, alert, oriented x4, appropriate, GCS 15, moving all extremities spontaneously, pupils equal and reactive to light. Full physical exam performed and significant for patient has chondritis of almost the entire right ear. No obvious drainage, but it is swollen, tender, warm. Internal ear exam normal, TM normal. No mastoid tenderness. Differential includes chondritis, soft tissue infection, among others. Because this is clinically soft tissue and cartilage infection of the right ear, levofloxacin was prescribed out of concern for diabetes history, high risk of Pseudomonas. Given first dose of levofloxacin here. Labs were considered, but not deemed necessary. 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 Imaging of the head was also considered, but not deemed necessary for the same reason. Because patient at baseline without signs or symptoms of clinical decompensation, deemed appropriate for discharge. Results were relayed to patient who voiced understanding and were agreeable to outpatient management and follow up. I discussed my clinical impression with patient and answered all questions. At this time, the evidence for any other entities in the differential is insufficient to warrant any further testing or ED observation. This was explained as well. Advisory was given that persistent or worsening symptoms require further evaluation. I confirmed the understanding of this discussion. Finish Mill Operator disclaimer Much of this encounter note is an electronic assistant store leader spoken language to printed text. Electronic assistant store leader of the spoken language may permit errors. Although I have reviewed the note, some errors may still exist. Critical Care Critical Care Time Critical Care Time: No
[2024-11-12] MEDS: levoFLOXacin 750 MG TABLET PO (20:51)
[2024-11-12 20:59] VITALS: BP 160/102; PULSE 84; RESP 20; TEMP 36.4; O2SAT 97
== END 2024-11-12 21:04 | disposition home or self-care (01) ==
PROVIDERS: Emergency Provider Emergency Medicine; PCP Pediatrics
DX: H61.031 Chondritis of right external ear (principal); H92.01 Otalgia, right ear; R42 Dizziness and giddiness; R11.0 Nausea; R68.84 Jaw pain
CPT/HCPCS: 99283

== ENCOUNTER 2024-11-21 08:35 | Emergency (ER) | payer BC, OTHER, SELFPAY ==
[2024-11-21 09:09] VITALS: BP 131/80; PULSE 91; RESP 18; TEMP 38.3; O2SAT 99; BMI 36.7
[2024-11-21] MEDS: ACETAMINOPHEN 325MG TAB 650 MG PO (09:13)
--- NOTE | 2024-11-21 09:23 | EXP.UTC ---
Discharge Plan Disposition Patient Disposition: Home, Self-Care Condition: Good Prescriptions Prescriptions: New benzonatate 100 mg capsule 100 mg PO TIDP PRN (Reason: Cough) Qty: 30 0RF oseltamivir [Tamiflu] 75 mg capsule 75 mg PO BID 5 Days Qty: 10 0RF ondansetron 4 mg Tablet,Disintegrating 4 mg PO Q8H PRN (Reason: Nausea) Qty: 12 0RF No Action venlafaxine 75 mg capsule,extended release 24hr 75 mg PO DAILY Patient Comments: TAKE 1 CAPSULE BY MOUTH EVERY DAY losartan 100 mg tablet 100 mg PO DAILY Patient Comments: TAKE 1 TABLET BY MOUTH EVERY DAY Mounjaro 10 mg/0.5 mL pen injector 10 mg SQ WEEKLY Jardiance 25 mg Tablet 25 mg PO DAILY triamcinolone acetonide 0.1 % cream 1 applic topical TID Qty: 30 0RF levofloxacin 750 mg tablet 750 mg PO DAILY 10 Days Qty: 10 0RF Referrals Follow up/Referrals: Gavin Jo [Primary Care Provider] - See instructions Activity Restrictions/Add. Instructions Additional Instructions/Restrictions: Drink plenty of fluids. Take tylenol or ibuprofen for pain or fever. Take the medications as directed. Follow up with your regular doctor. GO TO THE ER FOR ANY WORSENING SYMPTOMS Clinical Impressions Clinical Impression: Influenza, Acute viral syndrome Stand Alone Forms Stand Alone Forms: Work/School Release Instructions Patient Instructions: Influenza, DI for Influenza -- Adult, DI for Viral Syndrome, Ondansetron, Benzonatate, Oseltamivir Print Language Print Language: Maldivian Discharge ED Provider: Andre Ochoa [facility] General Stated complaint: fever body aches Mode of Arrival: Ambulatory Source of Information: Patient Time Seen by Provider: 11/21/24 09:23 Description of Symptoms (Recalled from Triage Doc. by RN): BA, CHILLS, FEVER, HAS FLU HEENT Symptoms (Recalled from RN notes): Yes Resp Symptoms (Recalled from RN notes): No Skin Symptoms (Recalled from RN notes): No MS Symptoms (Recalled from RN notes): No Functional Status (Recalled from RN notes): WNL Related Data Home Medications ?Medication ?Instructions ?Recorded ?Confirmed empagliflozin 25 mg tablet 25 mg PO DAILY 05/22/24 11/21/24 (Jardiance) losartan 100 mg tablet 100 mg PO DAILY 05/22/24 11/21/24 tirzepatide 10 mg/0.5 mL 10 mg SQ WEEKLY 05/22/24 11/21/24 subcutaneous pen injector (Williams) venlafaxine 75 mg capsule,extended 75 mg PO DAILY 05/22/24 11/21/24 release 24 hr Previous Rx's ?Medication ?Instructions ?Recorded triamcinolone acetonide 0.1 % 1 applic topical TID #30 grams 11/11/24 topical cream levofloxacin 750 mg tablet 750 mg PO DAILY 10 days #10 tabs 11/12/24 benzonatate 100 mg capsule 100 mg PO TIDP PRN Cough #30 caps 11/21/24 ondansetron 4 mg disintegrating 4 mg PO Q8H PRN Nausea #12 tabs 11/21/24 tablet oseltamivir 75 mg capsule (Tamiflu) 75 mg PO BID 5 days #10 caps 11/21/24 Allergies Allergy/AdvReac Type Severity Reaction Status Date / Time erythromycin base Allergy Unknown Verified 01/09/24 12:36 allergy reaction Worker's Comp Is this a Worker's Comp case?: No [facility] Disclaimer: The information contained in this section may have been updated after the patient was seen, as this information can be updated by other users. Medical History (Updated 11/21/24 @ 09:54 by Andre Ochoa APRN) Depression Anxiety History of gastroesophageal reflux (GERD) Diabetes mellitus, type 2 Hypertension Surgical History (Updated 05/22/24 @ 10:27 by Kati Le RN) History of section History of cholecystectomy History of hysterectomy Social History Smoking Status: Never smoker alcohol intake: never substance use type: denies use current occupational status: employed Travel in the last 8 weeks: None Have you lived/traveled outside US in past 30 days?: No Contact w/someone who lives/traveled outside US past 30 days?: No Exposure to someone with infectious disease in past 14 days?: Yes Do you have a fever (greater than 100.4 F or 38 C)?: No Have you tested positive for COVID-19: No Exposed to someone with COVID-19 in past 14 days?: No Do you have a sore throat?: Yes Do you have a cough?: Yes Do you have any weakness?: Yes Do you have any diarrhea?: No Are you experiencing any unusual bleeding?: No Do you have any muscle aches/pain?: No Do you have any abdominal pain?: No Are you experiencing loss of taste or smell?: No ROS Obtained: Yes All systems reviewed & no additional complaints except as documented Constitutional Constitutional: Reports chills and Reports fever(s) Eyes Eyes: Denies eye discharge ENT Ears, Nose, Mouth, and Throat: Reports as per HPI Cardiovascular Cardiovascular: Denies chest pain Respiratory Respiratory: Denies chest congestion and Reports cough Gastrointestinal Gastrointestingal: Reports nausea; Denies abdominal pain, constipation, cramping, diarrhea or vomiting Musculoskeletal Musculoskeletal: Denies arthralgias Integumentary/Breasts Skin/Breast: Denies rash Neurologic Neurologic: Denies paresthesias Physical Exam General General appearance: alert and in no apparent distress Head Head exam: atraumatic, normocephalic and normal inspection Eye Eye exam: Present normal appearance, PERRL and EOMI ENT ENT exam: Present normal exam, normal oropharynx, mucous membranes moist, TM's normal bilaterally and normal external ear exam Neck Neck exam: Present normal inspection, full ROM and trachea midline; Absent meningismus or lymphadenopathy Chest Chest inspection: Present normal inspection and symmetric chest wall rise; Absent tenderness Respiratory Respiratory exam: Present normal lung sounds bilaterally; Absent respiratory distress Cardiovascular Cardiovascular exam: Present regular rate and normal rhythm; Absent JVD Abdominal Exam Abdominal exam: Present soft and normal bowel sounds; Absent distention, tenderness or guarding Extremities Exam Extremities exam: Present normal inspection, full ROM and normal capillary refill; Absent calf tenderness Back Exam Back exam: Present normal inspection; Absent tenderness Neurological Exam Neurological exam: Present alert and oriented X3 Psychiatric Psychiatric exam: Present normal affect and normal mood Skin Skin exam: Present warm, dry, intact and normal color Lymphatic Lymphatic Findings: no adenopathy Medical Decision Making Medical Records Medical records reviewed: No I reviewed the patient's medical records. Screening: Per USPSTF and CDC recommendations, given the prevalence of disease in our region, it is our hospital?s policy to screen for HIV and viral Hepatitis for all patients aged 18 and over and those with ongoing risk factors. Gulshan Inquiry Pt receiving controlled substance: No Vital Signs: 11/21/24 09:09 Temperature 100.9 F H Temperature Source Oral Pulse Rate [Left Radial] 91 H Respiratory Rate 18 Blood Pressure [Left Arm] 131/80 Blood Pressure Mean [Left Arm] 97 02 Sat by Pulse Oximetry 99 Lab Data Lab results reviewed: Yes I reviewed the patient's lab results. Orders (Tests/Meds): ED MEDICATIONS Discontinued Medications Generic Name Dose Route Start Last Admin Trade Name Freq PRN Reason Stop Dose Admin Acetaminophen 650 mg 11/21/24 09:12 11/21/24 09:13 Acetaminophen 325mg Tab PO 11/21/24 09:13 650 mg ONCE ONE Administration
[2024-11-21 09:25] LABS: UTC Influenza A Antigen Negative (Negative); UTC Influenza B Antigen Negative (Negative)
[2024-11-21 09:59] VITALS: BP 131/80; PULSE 91; RESP 18; TEMP 38.3
[2024-11-21 10:06] LABS: Coronavirus 19, PCR Not Detected (NotDetected); Influenza B, PCR Not Detected (NotDetected)
[2024-11-21 11:03] LABS: Influenza A, PCR Detected (NotDetected)
== END 2024-11-21 10:01 | disposition home or self-care (01) ==
PROVIDERS: Emergency Provider Nurse Practitioner Family; PCP Pediatrics
DX: J10.1 Influenza due to other identified influenza virus with other respiratory manifestations (principal); B34.9 Viral infection, unspecified
CPT/HCPCS: 87636; 87804; 99213; G0381

== ENCOUNTER 2024-12-24 00:53 | Emergency (ER) | payer BC, OTHER, SELFPAY ==
[2024-12-24 00:54] VITALS: BP 164/90; PULSE 83; RESP 14; TEMP 36.7; O2SAT 99; BMI 35.7
--- NOTE | 2024-12-24 01:03 | HMH.EDGENADL ---
Discharge Plan Disposition Patient Disposition: Home, Self-Care Prescriptions Prescriptions: No Action venlafaxine 75 mg capsule,extended release 24hr 75 mg PO DAILY Patient Comments: TAKE 1 CAPSULE BY MOUTH EVERY DAY losartan 100 mg tablet 100 mg PO DAILY Patient Comments: TAKE 1 TABLET BY MOUTH EVERY DAY Mounjaro 10 mg/0.5 mL pen injector 10 mg SQ WEEKLY Jardiance 25 mg Tablet 25 mg PO DAILY triamcinolone acetonide 0.1 % cream 1 applic topical TID Qty: 30 0RF levofloxacin 750 mg tablet 750 mg PO DAILY 10 Days Qty: 10 0RF benzonatate 100 mg capsule 100 mg PO TIDP PRN (Reason: Cough) Qty: 30 0RF oseltamivir [Tamiflu] 75 mg capsule 75 mg PO BID 5 Days Qty: 10 0RF ondansetron 4 mg Tablet,Disintegrating 4 mg PO Q8H PRN (Reason: Nausea) Qty: 12 0RF Referrals Follow up/Referrals: Gavin Jo [Primary Care Provider] - See instructions Activity Restrictions/Add. Instructions Additional Instructions/Restrictions: Please follow-up with your primary care provider. Please return to the emergency department if you develop any new or worsening symptoms or become concerned for your health. Clinical Impressions Clinical Impression: Chest pain Stand Alone Forms Stand Alone Forms: Work/School Release Print Language Print Language: French Discharge ED Provider: Nicholas Winter Adult [facility] General Chief complaint: Chest Pain Stated complaint: joint pain, dizziness, nausea Time Seen by Provider: 12/24/24 01:00 History of Present Illness HPI narrative: 49-year-old female presents for chest pain and shortness of breath. Symptoms started a few hours ago. Within the last hour she has also had some nausea and dizziness. She is currently being worked up including having a recent cardiac CT which showed largely normal vessels, with the exception of 1 small vessel with stenosis that is too small to stent. She denies any recent fever or flulike illness. Denies any history of [place]. Currently has a Holter monitor. Patient also reports that her illness anxiety has gone up dramatically since her father recently. She reports that she is always much more anxious about her health recently. Related Data Home Medications ?Medication ?Instructions ?Recorded ?Confirmed empagliflozin 25 mg tablet 25 mg PO DAILY 05/22/24 11/21/24 (Jardiance) losartan 100 mg tablet 100 mg PO DAILY 05/22/24 11/21/24 tirzepatide 10 mg/0.5 mL 10 mg SQ WEEKLY 05/22/24 11/21/24 subcutaneous pen injector (Williams) venlafaxine 75 mg capsule,extended 75 mg PO DAILY 05/22/24 11/21/24 release 24 hr Previous Rx's ?Medication ?Instructions ?Recorded triamcinolone acetonide 0.1 % 1 applic topical TID #30 grams 11/11/24 topical cream levofloxacin 750 mg tablet 750 mg PO DAILY 10 days #10 tabs 11/12/24 benzonatate 100 mg capsule 100 mg PO TIDP PRN Cough #30 caps 11/21/24 ondansetron 4 mg disintegrating 4 mg PO Q8H PRN Nausea #12 tabs 11/21/24 tablet oseltamivir 75 mg capsule (Tamiflu) 75 mg PO BID 5 days #10 caps 11/21/24 Allergies Allergy/AdvReac Type Severity Reaction Status Date / Time erythromycin base Allergy Unknown Verified 01/09/24 12:36 allergy reaction [facility] Disclaimer: The information contained in this section may have been updated after the patient was seen, as this information can be updated by other users. Medical History (Updated 12/24/24 @ 04:47 by Nicholas Winter MD) Depression Anxiety History of gastroesophageal reflux (GERD) Diabetes mellitus, type 2 Hypertension Surgical History (Updated 05/22/24 @ 10:27 by Kati Le RN) History of section History of cholecystectomy History of hysterectomy Social History Smoking Status: Never smoker alcohol intake: never substance use type: denies use current occupational status: employed Travel in the last 8 weeks: None Have you lived/traveled outside [place] in past 30 days?: No Contact w/someone who lives/traveled outside US past 30 days?: No Exposure to someone with infectious disease in past 14 days?: No Do you have a fever (greater than 100.4 F or 38 C)?: No Have you tested positive for COVID-19: No Exposed to someone with COVID-19 in past 14 days?: No Do you have a sore throat?: No Do you have a cough?: No Do you have any weakness?: No Do you have any diarrhea?: No Are you experiencing any unusual bleeding?: No Do you have any muscle aches/pain?: Yes Do you have any abdominal pain?: No Are you experiencing loss of taste or smell?: No Other Medical History Have you received the Flu Vaccine for this season: No ROS Obtained: Yes All systems reviewed & no additional complaints except as documented Physical Exam General General appearance: alert Head Head exam: atraumatic and normocephalic Eye Eye exam: Present normal appearance, PERRL and EOMI ENT ENT exam: Present normal oropharynx and normal external ear exam Neck Neck exam: Present normal inspection and full ROM Chest Chest inspection: Present normal inspection and symmetric chest wall rise; Absent tenderness Respiratory Respiratory exam: Present normal lung sounds bilaterally; Absent respiratory distress Cardiovascular Cardiovascular exam: Present regular rate and normal rhythm Abdominal Exam Abdominal exam: Present soft; Absent distention, tenderness or guarding Extremities Exam Extremities exam: Present normal inspection; Absent edema or joint swelling Back Exam Back exam: Present normal inspection; Absent tenderness Neurological Exam Neurological exam: Present alert and oriented X3; Absent motor sensory deficit Psychiatric Psychiatric exam: Present normal affect and normal mood Skin Skin exam: Present warm, dry and normal color Lymphatic Lymphatic Findings: no adenopathy Medical Decision Making Medical Records Medical records reviewed: Yes I reviewed the patient's medical records. Screening: Per USPSTF and CDC recommendations, given the prevalence of disease in our region, it is our hospital?s policy to screen for HIV and viral Hepatitis for all patients aged 18 and over and those with ongoing risk factors. Gulshan Inquiry Pt receiving controlled substance: No Gulshan was queried for this patient: No Vital Signs: 12/24/24 00:54 12/24/24 01:07 12/24/24 02:00 Temperature 98.1 F Temperature Source Oral Pulse Rate Pulse Rate [Radial] 83 Respiratory Rate 14 Blood Pressure 127/77 Blood Pressure [Right Arm] 164/90 H Blood Pressure Mean 93 Blood Pressure Mean [Right Arm] 114 Blood Pressure Source Blood Pressure Position Blood Pressure Position [Right Arm] Sitting 02 Sat by Pulse Oximetry 99 99 Oxygen Delivery Method Room Air Room Air 12/24/24 02:30 12/24/24 02:30 12/24/24 04:59 Temperature 98.2 F Temperature Source Oral Pulse Rate 54 L 54 L Pulse Rate [Radial] Respiratory Rate 18 20 Blood Pressure 131/75 130/80 Blood Pressure [Right Arm] Blood Pressure Mean 93 Blood Pressure Mean [Right Arm] Blood Pressure Source Automatic Cuff Blood Pressure Position Sitting Blood Pressure Position [Right Arm] 02 Sat by Pulse Oximetry 95 Oxygen Delivery Method Room Air Lab Data Lab results reviewed: Yes I reviewed the patient's lab results. Lab Results 12/24/24 01:08: WBC 8.7, RBC 4.97, Hgb 14.3, Hct 43.0, MCV 86.5, MCH 28.8, MCHC 33.3, RDW 13.9, Plt Count 210, MPV 10.0, Neut % (Auto) 48.0, Lymph % (Auto) 40.8, [place] % (Auto) 8.9, Eos % (Auto) 1.3, Baso % (Auto) 0.5, Neut # (Auto) 4.2, Lymph # (Auto) 3.5, [place] # (Auto) 0.8, Eos # (Auto) 0.1, Baso # (Auto) 0.0, D-Dimer < 0.25, Sodium 140, Potassium 3.6, Chloride 103, Carbon Dioxide 29, Anion Gap 11.6, BUN 17, Creatinine 0.70, Estimated Creat Clear 151, Estimated GFR 89, Est GFR ( Amer) 108, Glucose 107 H, Calcium 8.9, Total Bilirubin 0.3, AST 24, ALT 23, Alkaline Phosphatase 101, Troponin I < 0.01, Total Protein 7.4, Albumin 4.3, Globulin 3.1, Albumin/Globulin Ratio 1.4 12/24/24 03:58: Troponin I < 0.01 12/24/24 01:08 12/24/24 01:08 Orders (Tests/Meds): ED MEDICATIONS Discontinued Medications Generic Name Dose Route Start Last Admin Trade Name Isma PRN Reason Stop Dose Admin Aspirin 324 mg 12/24/24 01:12 12/24/24 01:17 Aspirin 81mg Chewable Tablet PO 12/24/24 01:13 324 mg ONCE ONE Administration Belladonna Alkaloids 60 ml 12/24/24 02:39 12/24/24 02:44 Belladonna Alkaloids 60 Ml Ml PO 12/24/24 02:40 60 ml ONCE ONE Administration Ondansetron HCl 4 mg 12/24/24 01:12 12/24/24 01:17 Ondansetron 4mg/2ml Vial IV 12/24/24 01:13 4 mg ONCE ONE Administration ORDERS Category Date Time Status CXR --portable [XR chest portable] Stat Exams 12/24/24 01:12 Completed CBC w/Auto Diff [Complete Blood Count Auto Diff] Stat Lab 12/24/24 01:08 Completed CMP [Comprehensive Metabolic Panel] Stat Lab 12/24/24 01:08 Completed D-Dimer Stat Lab 12/24/24 01:08 Completed Troponin I Q3H Lab 12/24/24 01:08 Completed Troponin I Q3H Lab 12/24/24 03:58 Completed ECG Data Tracing #1: I reviewed this ECG and interpreted as documented below: Sinus bradycardia, first-degree AV block, no significant ST or T wave changes. ECG initial impression date: 12/24/24 ECG initial impression time: 00:59 HEART Score History (anamnesis): Slightly suspicious ECG: Non-specific disturbance Age: 45-65 years Risk factors: 1-2 risk factors Troponin: </= normal limit HEART Score: 3 Medical Decision Narrative: 49-year-old female presents with chest pain and shortness of breath with mild nausea and dizziness. For the last few hours. History was obtained via interactive discussion with patient, chart review. On arrival, patient is [afebrile, hemodynamically stable, satting appropriately, alert, oriented x4, GCS 15], moving all extremities spontaneously. Full physical exam performed and significant for clear lungs bilaterally Differential includes but is not limited to ACS, PE, pneumonia, pleurisy, pneumothorax, pericarditis anxiety. Patient was given full dose aspirin and GI cocktail for symptomatic management and correction of underlying abnormalities. Workup initiated including CBC CMP troponin EKG D-dimer chest x-ray. On re-evaluation, patient [remains afebrile, HD stable.] Laboratory workup independently interpreted by me and significant for negative D-dimer, negative initial troponin, no significant electrolyte derangement.. Imaging independently interpreted by me and significant for clear lungs bilaterally without focal opacity. See radiology read for full review of final results. Patient was placed in ED observation status for serial cardiac troponins and continue cardiac monitoring to assess need for admission. On reassessment, 3-hour troponin returns undetectably low. Patient reports symptomatic improvement. Direct discussion was had with patient regarding presentation. No evidence of emergent pathology at this time. Given this, patient does not require admission at this time. She was discharged in stable condition with return precautions. Procedures Risk/Benefits of Procedure(s) Were Explained: Yes Critical Care Critical Care Time Critical Care Time: No
[2024-12-24 01:07] VITALS: O2SAT 99
--- NOTE | 2024-12-24 01:12 | ECG_ITS ---
APPROVED REPORT Exam: Resting ECG HR:58 bpm ECG Measurements Heart Rate 58 AXES IN 221 P 42 QRSd 111 QRS -33 QT 441 T 14 QTc 437 Conclusion SINUS BRADYCARDIA WITH FIRST DEGREE AV BLOCK LEFT AXIS DEVIATION [QRS AXIS < -30] MODERATE INTRAVENTRICULAR CONDUCTION DELAY [110+ ms QRS DURATION] MODERATE T-WAVE ABNORMALITY, CONSIDER LATERAL ISCHEMIA [-0.1+ mV T-WAVE IN I/aVL/V5/V6] ABNORMAL ECG UNCONFIRMED REPORT Electronically signed by : PLACIDO CARRANZA, 12/24/2024 23:15:26
--- NOTE | 2024-12-24 01:12 | XR_ITS ---
PROCEDURE INFORMATION: Exam: XR Chest Exam date and time: 12/24/2024 1:20 AM Age: 49 years old Clinical indication: Pain; Chest pressure; Additional info: Cp TECHNIQUE: Imaging protocol: Radiologic exam of the chest. Views: 1 view. COMPARISON: CR XR CHEST PORTABLE 06/11/2024 12:46 PM FINDINGS: Lungs: Unremarkable. No consolidation. Monitoring device overlies the upper left chest. Pleural spaces: Unremarkable. No pleural effusion. No pneumothorax. Heart/Mediastinum: Unremarkable. No cardiomegaly. Vasculature: Unremarkable. Bones/joints: Unremarkable. IMPRESSION: No acute findings.
[2024-12-24] MEDS: ASPIRIN 81MG CHEWABLE TABLET 324 MG PO (01:17)
[2024-12-24] MEDS: ONDANSETRON 4MG/2ML VIAL 4 MG IV (01:17)
[2024-12-24 01:27] LABS: Basophils % 0.5 % (0.1-2.0); Eosinophils # 0.1 K/mm3 (0.0-0.4); Eosinophils % 1.3 % (0.1-12.0); Hemoglobin 14.3 g/dL (12.2-16.2); Lymphocytes # 3.5 K/mm3 (0.7-4.5); Lymphocytes % 40.8 % (10-50); Mean Corpuscular HGB Conc 33.3 g/dL (31.8-35.4); Mean Corpuscular Hemoglobin 28.8 pg (27.0-31.2); Mean Corpuscular Volume 86.5 fl (81-99); Monocytes # 0.8 K/mm3 (0.1-1.0); Monocytes % 8.9 % (1.7-9.3); Neutrophils # 4.2 K/mm3 (1.8-7.8); Platelet Count 210 K/mm3 (142-424); Red Blood Count 4.97 M/mm3 (4.20-5.40); Red Cell Distribution Width 13.9 % (11.5-17.5); White Blood Count 8.7 K/mm3 (4.8-10.8)
[2024-12-24 01:35] LABS: Albumin Level 4.3 g/dl (3.5-5.0); Chloride 103 mmol/L (98-107); Potassium 3.6 mmoL/L (3.5-5.1); Sodium 140 mmol/L (136-145)
[2024-12-24 01:38] LABS: Alanine Aminotransferase 23 U/L (12-78); Albumin/Globulin Ratio 1.4 (1.1-1.8); Alkaline Phosphatase 101 U/L (38-126); Anion Gap 11.6 mEq/L (5-15); Aspartate Amino Transferase 24 U/L (14-36); Bilirubin,Total 0.3 mg/dl (0.2-1.3); Blood Urea Nitrogen 17 mg/dl (7-17); Calcium 8.9 mg/dl (8.4-10.2); Carbon Dioxide 29 mmol/L (22.0-30.0); Creatinine Clearance Estimated 151 mL/min (50-200); Estimated Glomerular Filt Rate 89 ml/min (>60); GFR (African American) 108 ML/MIN (>60); Globulin 3.1 g/dL (1.3-3.2); Glucose 107 mg/dl (74-100); Total Protein,Serum 7.4 g/dl (6.3-8.2)
[2024-12-24 02:00] VITALS: BP 127/77
[2024-12-24 02:04] LABS: Troponin I < 0.01 ng/ml (0.00-0.034)
[2024-12-24 02:27] LABS: D-Dimer < 0.25 ug/mL (0.0-0.5)
[2024-12-24 02:30] VITALS: BP 131/75; PULSE 54; RESP 18; O2SAT 95
--- NOTE | 2024-12-24 02:39 | PC.NURSE ---
provider at the bedside
[2024-12-24] MEDS: BELLADONNA ALKALOIDS 60 ML ML PO (02:44)
--- NOTE | 2024-12-24 03:04 | PC.NURSE ---
provider at the bedside.
[2024-12-24 04:45] LABS: Troponin I < 0.01 ng/ml (0.00-0.034)
[2024-12-24 04:59] VITALS: BP 130/80; PULSE 54; RESP 20; TEMP 36.8; O2SAT 97
== END 2024-12-24 05:04 | disposition home or self-care (01) ==
PROVIDERS: Emergency Provider Emergency Medicine; PCP Pediatrics
DX: R07.9 Chest pain, unspecified (principal); R06.02 Shortness of breath; R11.0 Nausea; R42 Dizziness and giddiness
CPT/HCPCS: 71045; 80053; 84484; 85025; 85378; 93005; 96374; 99284; J2405

== ENCOUNTER 2025-01-16 15:10 | Emergency (ER) | payer BC, OTHER, SELFPAY ==
[2025-01-16] VITALS (8 sets, daily range): BP systolic 113–154; BP diastolic 67–100; PULSE 60–80; RESP 14–22; TEMP 36.7–36.8; O2SAT 96–100; BMI 35.2
--- NOTE | 2025-01-16 15:33 | PC.NURSE ---
pateint reports at 1130 today she was sitting at her desk at work when she suddenly devloped a sharp twisting pain in her right flank area. 06/02 pain
[2025-01-16] MEDS: KETOROLAC 30MG/ML VIAL 15 MG IV (15:42)
[2025-01-16] MEDS: ONDANSETRON 4MG/2ML VIAL 4 MG IV (15:42)
[2025-01-16 15:46] LABS: Basophils % 0.4 % (0.1-2.0); Eosinophils # 0.1 K/mm3 (0.0-0.4); Eosinophils % 1.3 % (0.1-12.0); Hemoglobin 14.7 g/dL (12.2-16.2); Lymphocytes # 2.4 K/mm3 (0.7-4.5); Lymphocytes % 27.1 % (10-50); Mean Corpuscular HGB Conc 33.4 g/dL (31.8-35.4); Mean Corpuscular Hemoglobin 29.2 pg (27.0-31.2); Mean Corpuscular Volume 87.5 fl (81-99); Mean Platelet Volume 9.7 fl (7.4-10.4); Monocytes # 0.8 K/mm3 (0.1-1.0); Monocytes % 9.4 % (1.7-9.3); Neutrophils # 5.5 K/mm3 (1.8-7.8); Neutrophils % 61.6 % (37.0-80.0); Platelet Count 253 K/mm3 (142-424); Red Blood Count 5.03 M/mm3 (4.20-5.40); Red Cell Distribution Width 13.3 % (11.5-17.5); White Blood Count 8.9 K/mm3 (4.8-10.8)
[2025-01-16 15:54] LABS: Albumin Level 4.8 g/dl (3.5-5.0); Chloride 102 mmol/L (98-107)
[2025-01-16 15:55] LABS: Potassium 3.8 mmoL/L (3.5-5.1); Sodium 140 mmol/L (136-145)
[2025-01-16 15:57] LABS: Blood Urea Nitrogen 16 mg/dl (7-17); Creatinine Clearance Estimated 149 mL/min (50-200); Estimated Glomerular Filt Rate 89 ml/min (>60); GFR (African American) 108 ML/MIN (>60)
[2025-01-16 15:58] LABS: Alanine Aminotransferase 26 U/L (12-78); Albumin/Globulin Ratio 1.7 (1.1-1.8); Alkaline Phosphatase 81 U/L (38-126); Anion Gap 11.8 mEq/L (5-15); Aspartate Amino Transferase 33 U/L (14-36); Bilirubin,Total 0.5 mg/dl (0.2-1.3); Calcium 9.5 mg/dl (8.4-10.2); Carbon Dioxide 30 mmol/L (22.0-30.0); Globulin 2.9 g/dL (1.3-3.2); Glucose 78 mg/dl (74-100); Total Protein,Serum 7.7 g/dl (6.3-8.2)
--- NOTE | 2025-01-16 15:58 | CT_ITS ---
PROCEDURE INFORMATION: Exam: CT Abdomen And Pelvis With Contrast Exam date and time: 01/16/2025 4:46 PM Age: 49 years old Clinical indication: Other: R flank pain TECHNIQUE: Imaging protocol: Computed tomography of the abdomen and pelvis with contrast. Radiation optimization: All CT scans at this facility use at least one of these dose optimization techniques: automated exposure control; mA and/or kV adjustment per patient size (includes targeted exams where dose is matched to clinical indication); or iterative reconstruction. Contrast material: ISOVUE; Contrast volume: 75 ml; Contrast route: IV; COMPARISON: CT THORACIC SPINE WO CON 03/15/2024 3:42 PM FINDINGS: Diaphragm: Small hiatal hernia. Liver: Normal. No mass. Gallbladder and biliary ducts: Previous cholecystectomy. Minimal intra and extrahepatic biliary dilatation. Pancreas: Normal. No ductal dilation. Spleen: Normal. No splenomegaly. Adrenal glands: Normal. No mass. Kidneys and ureters: Small right renal hypodensity is too small to characterize. Indeterminate left renal hypodensity measures 9 mm. No hydronephrosis or hydroureter. Stomach and bowel: Gastric postoperative change. Diverticulosis without diverticulitis. Appendix: Normal appendix. Intraperitoneal space: Unremarkable. No free air. No significant fluid collection. Vasculature: There are several phleboliths within the pelvis. Lymph nodes: Unremarkable. No enlarged lymph nodes. Urinary bladder: Urinary bladder is under distended. Urinary bladder is under distended. Reproductive: Unremarkable as visualized. Bones/joints: Degenerative change involving the spine. Soft tissues: Unremarkable. IMPRESSION: 1. No acute abnormality involving the abdomen or pelvis. 2. 9 mm indeterminate left renal hypodensity, nonemergent ultrasound as clinically warranted. 3. Additional nonemergent findings as above. COMMENTS: Consistent with the [employer]'s Incidental Findings Committee white paper (J Am Narendra Radiol 2018): Any incidental renal lesion less than 1 cm or classified as too small to characterize, or any incidental cystic renal lesion characterized as simple-appearing, is likely benign. No follow-up imaging is recommended for these lesions per consensus recommendations based on imaging criteria.
--- NOTE | 2025-01-16 15:59 | HMH.EDGENADL ---
Discharge Plan Disposition Patient Disposition: Home, Self-Care Prescriptions Prescriptions: New ibuprofen 800 mg tablet 800 mg PO Q8H PRN (Reason: back pain) Qty: 15 0RF methocarbamol 500 mg tablet 1,000 mg PO Q8H PRN (Reason: muscle pain and spasm) Qty: 30 0RF No Action venlafaxine 75 mg capsule,extended release 24hr 75 mg PO DAILY Patient Comments: TAKE 1 CAPSULE BY MOUTH EVERY DAY losartan 100 mg tablet 100 mg PO DAILY Patient Comments: TAKE 1 TABLET BY MOUTH EVERY DAY Mounjaro 10 mg/0.5 mL pen injector 10 mg SQ WEEKLY Jardiance 25 mg Tablet 25 mg PO DAILY triamcinolone acetonide 0.1 % cream 1 applic topical TID Qty: 30 0RF levofloxacin 750 mg tablet 750 mg PO DAILY 10 Days Qty: 10 0RF benzonatate 100 mg capsule 100 mg PO TIDP PRN (Reason: Cough) Qty: 30 0RF oseltamivir [Tamiflu] 75 mg capsule 75 mg PO BID 5 Days Qty: 10 0RF ondansetron 4 mg Tablet,Disintegrating 4 mg PO Q8H PRN (Reason: Nausea) Qty: 12 0RF Referrals Follow up/Referrals: Gavin Jo [Primary Care Provider] - See instructions Activity Restrictions/Add. Instructions Additional Instructions/Restrictions: At this time it was felt you are safe to be discharged home. If new or worsening symptoms please do not hesitate to return the emergency department. As discussed there were 2 small spots on your kidneys, these are likely benign but will need further investigation. Please follow-up with your family doctor next week to see how your back pain is going and for continued evaluation. Please take your medications as prescribed. Clinical Impressions Clinical Impression: Back pain, Abnormal renal finding, Hematuria, microscopic Print Language Print Language: Maori Discharge ED Provider: Flip Hartley General Adult HPI General Chief complaint: PAIN Stated complaint: back pain shooting through spine Time Seen by Provider: 01/16/25 15:17 Mode of Arrival: Ambulatory Source of Information: Patient Description of Symptoms (Recalled from ER Triage Doc. by RN): Patient reports right back and flank pain that began suddenly while sitting at work. Patient reports that pain has continued to increase. History of Present Illness HPI narrative: Patient is a 49-year-old female with past medical history of diabetes, hypertension who presents emergency department for evaluation of right flank pain. Onset was acute, occurring throughout the day. Severe and persistent. Not particularly modifiable. No vomiting no chest pain. It is hot when she urinates, no vaginal bleeding or discharge normal stooling. No other acute complaints at this time. No trauma. Please note that above description of symptoms, in this electronic medical record under categorization of recalled from ER triage doctor by RN are reflective of an initial nursing assessment, however, is not reflective of my full history and physical exam that was personally taken and clarified. Consequentially, this preceding description of symptoms, which may include the patient's categorized chief complaint in the EMR, do not reflect my personal clinical impression, and the ultimate description of history of present illness and patient stated complaints should be deferred to this section of the note. Unless stated otherwise or congruent with this section of the note, additional signs, symptoms, or incongruence should be interpreted as inaccurate with my clinical impression. Related Data Home Medications ?Medication ?Instructions ?Recorded ?Confirmed empagliflozin 25 mg tablet 25 mg PO DAILY 05/22/24 11/21/24 (Jardiance) losartan 100 mg tablet 100 mg PO DAILY 05/22/24 11/21/24 tirzepatide 10 mg/0.5 mL 10 mg SQ WEEKLY 05/22/24 11/21/24 subcutaneous pen injector (Williams) venlafaxine 75 mg capsule,extended 75 mg PO DAILY 05/22/24 11/21/24 release 24 hr Previous Rx's ?Medication ?Instructions ?Recorded triamcinolone acetonide 0.1 % 1 applic topical TID #30 grams 11/11/24 topical cream levofloxacin 750 mg tablet 750 mg PO DAILY 10 days #10 tabs 11/12/24 benzonatate 100 mg capsule 100 mg PO TIDP PRN Cough #30 caps 11/21/24 ondansetron 4 mg disintegrating 4 mg PO Q8H PRN Nausea #12 tabs 11/21/24 tablet oseltamivir 75 mg capsule (Tamiflu) 75 mg PO BID 5 days #10 caps 11/21/24 ibuprofen 800 mg tablet 800 mg PO Q8H PRN back pain #15 01/16/25 tabs methocarbamol 500 mg tablet 1,000 mg (2 x 500 mg) PO Q8H PRN 01/16/25 muscle pain and spasm #30 tabs Allergies Allergy/AdvReac Type Severity Reaction Status Date / Time erythromycin base Allergy Unknown Verified 01/09/24 12:36 allergy reaction [facility] Disclaimer: The information contained in this section may have been updated after the patient was seen, as this information can be updated by other users. Medical History (Updated 01/16/25 @ 18:44 by Flip Hartley MD) Depression Anxiety History of gastroesophageal reflux (GERD) Diabetes mellitus, type 2 Hypertension Surgical History (Updated 05/22/24 @ 10:27 by Kati Le RN) History of section History of cholecystectomy History of hysterectomy Social History Smoking Status: Never smoker alcohol intake: never substance use type: denies use current occupational status: employed Travel in the last 8 weeks: None Have you lived/traveled outside [place] in past 30 days?: No Contact w/someone who lives/traveled outside US past 30 days?: No Exposure to someone with infectious disease in past 14 days?: No Do you have a fever (greater than 100.4 F or 38 C)?: No Have you tested positive for COVID-19: No Exposed to someone with COVID-19 in past 14 days?: No Do you have a sore throat?: No Do you have a cough?: No Do you have any weakness?: No Do you have any diarrhea?: No Are you experiencing any unusual bleeding?: No Do you have any muscle aches/pain?: No Do you have any abdominal pain?: No Are you experiencing loss of taste or smell?: No Other Medical History Have you received the Flu Vaccine for this season: No ROS Obtained: Yes Systems reviewed as appropriate & no additional complaints except as documented Physical Exam General General appearance: alert and in no apparent distress Head Head exam: atraumatic and normocephalic Eye Eye exam: Present PERRL ENT ENT exam: Present mucous membranes moist Neck Neck exam: Present normal inspection Chest Chest inspection: Present normal inspection and symmetric chest wall rise Respiratory Respiratory exam: Present normal lung sounds bilaterally; Absent respiratory distress Cardiovascular Cardiovascular exam: Present regular rate and normal rhythm Abdominal Exam Abdominal exam: Present soft; Absent tenderness, guarding or rebound Extremities Exam Extremities exam: Present normal inspection Back Exam Back exam: Present normal inspection; Absent tenderness Neurological Exam Neurological exam: Present alert and oriented X3 Psychiatric Psychiatric exam: Present normal affect Skin Skin exam: Present warm and dry; Absent rash Medical Decision Making Medical Records Screening: Per USPSTF and CDC recommendations, given the prevalence of disease in our region, it is our hospital?s policy to screen for HIV and viral Hepatitis for all patients aged 18 and over and those with ongoing risk factors. [place] Inquiry Pt receiving controlled substance: No Vital Signs: 01/16/25 15:14 01/16/25 15:28 01/16/25 15:30 Temperature 98.1 F Temperature Source Oral Pulse Rate 76 60 Pulse Rate [Right] 68 Respiratory Rate 16 19 14 Blood Pressure 132/95 H 139/75 Blood Pressure [Right Arm] 154/76 H Blood Pressure Mean Blood Pressure Mean [Right Arm] 102 02 Sat by Pulse Oximetry 100 96 99 Oxygen Delivery Method Room Air Room Air 01/16/25 16:00 01/16/25 16:30 01/16/25 17:01 Temperature Temperature Source Pulse Rate 67 66 64 Pulse Rate [Right] Respiratory Rate 22 14 18 Blood Pressure 133/87 123/100 H 125/74 Blood Pressure [Right Arm] Blood Pressure Mean 95 Blood Pressure Mean [Right Arm] 02 Sat by Pulse Oximetry 97 97 96 Oxygen Delivery Method Room Air Room Air 01/16/25 17:31 Temperature Temperature Source Pulse Rate 64 Pulse Rate [Right] Respiratory Rate 21 Blood Pressure 113/67 Blood Pressure [Right Arm] Blood Pressure Mean Blood Pressure Mean [Right Arm] 02 Sat by Pulse Oximetry 96 Oxygen Delivery Method Room Air Lab Data Lab Results 01/16/25 15:20: Urine Color Yellow, Urine Appearance Clear, Urine pH 5.5, Ur Specific [place] 1.015, Urine Protein Negative, Urine Glucose (UA) >=1000, Urine Ketones Negative, Urine Blood Negative, Urine Nitrate Negative, Urine Bilirubin Negative, Urine Urobilinogen 0.2, Ur Leukocyte Esterase Negative, Urine RBC 5-10, Urine WBC Occasional, Ur Squamous Epith Cells 5-10, Urine Bacteria 2+, Urine Yeast Occasional 01/16/25 15:30: WBC 8.9, RBC 5.03, Hgb 14.7, Hct 44.0, MCV 87.5, MCH 29.2, MCHC 33.4, RDW 13.3, Plt Count 253, MPV 9.7, Neut % (Auto) 61.6, Lymph % (Auto) 27.1, [place] % (Auto) 9.4 H, Eos % (Auto) 1.3, Baso % (Auto) 0.4, Neut # (Auto) 5.5, Lymph # (Auto) 2.4, [place] # (Auto) 0.8, Eos # (Auto) 0.1, Baso # (Auto) 0.0, Sodium 140, Potassium 3.8, Chloride 102, Carbon Dioxide 30, Anion Gap 11.8, BUN 16, Creatinine 0.70, Estimated Creat Clear 149, Estimated GFR 89, Est GFR ( Amer) 108, Glucose 78, Calcium 9.5, Total Bilirubin 0.5, AST 33, ALT 26, Alkaline Phosphatase 81, Total Protein 7.7, Albumin 4.8, Globulin 2.9, Albumin/Globulin Ratio 1.7, Lipase 75 01/16/25 15:30 01/16/25 15:30 Orders (Tests/Meds): ED MEDICATIONS Generic Name Dose Route Start Last Admin Trade Name Freq PRN Reason Stop Dose Admin Lidocaine 1 each 01/16/25 18:44 Lidocaine 5% Transdermal Patch TD 01/16/25 18:45 ONCE ONE Oxycodone HCl 5 mg 01/16/25 18:44 Oxycodone 5mg Immediate Release Tablet PO 01/16/25 18:45 ONCE ONE Discontinued Medications Generic Name Dose Route Start Last Admin Trade Name Freq PRN Reason Stop Dose Admin Acetaminophen 1,000 mg 01/16/25 15:58 01/16/25 16:21 Acetaminophen 500mg Tab PO 01/16/25 15:59 1,000 mg ONCE ONE Administration Iopamidol 75 ml 01/16/25 16:48 01/16/25 16:49 Iopamidol-370 (76%);100ml Bottle IV 01/16/25 16:49 75 ml ONCE ONE Administration Ketorolac Tromethamine 15 mg 01/16/25 15:40 01/16/25 15:42 Ketorolac 30mg/Ml Vial IV 01/16/25 15:41 15 mg ONCE ONE Administration Morphine Sulfate 4 mg 01/16/25 15:58 01/16/25 16:21 Morphine 4mg/Ml Syringe IV 01/16/25 15:59 4 mg ONCE ONE Administration Ondansetron HCl 4 mg 01/16/25 15:40 01/16/25 15:42 Ondansetron 4mg/2ml Vial IV 01/16/25 15:41 4 mg ONCE ONE Administration Sodium Chloride 10 ml 01/16/25 16:48 01/16/25 16:49 Sodium Chloride 0.9% 10ml Syr (Rad Only) IV 01/16/25 16:49 10 ml ONCE ONE Administration ORDERS Category Date Time Status CT abdomen pelvis w con Stat Cat Scan 01/16/25 15:58 Completed CMP [Comprehensive Metabolic Panel] Stat Lab 01/16/25 15:30 Completed Complete Blood Count Auto Diff Stat Lab 01/16/25 15:30 Completed Lipase Stat Lab 01/16/25 15:30 Completed Urinalysis and Microscopic Stat Lab 01/16/25 15:20 Completed Urine Culture Stat Micro 01/16/25 15:20 Received Medical Decision Narrative: In summary patient is 49-year-old female past medical history described above presents emergency department for evaluation of right flank pain. Patient is hemodynamically stable nontoxic-appearing upon arrival, afebrile appearing uncomfortable. Differential diagnosis includes ureterolithiasis, ureteritis, pyelonephritis, urinary tract infection, musculoskeletal pain, among others. Workup we conducted with hematologic labs, CT abdomen pelvis IV contrast, urinalysis. Initial inventions include multimodal pain control, Zofran. Initial workup reviewed by me, no significant leukocytosis or anemia, no DAVID or critical electrolyte abnormality. Urinalysis interpreted by me, there is microscopic hematuria and bacteria however nitrate negative leuk esterase negative not consistent with infection. CT imaging of the abdomen pelvis has a 9 mm indeterminate left renal hypodensity for which outpatient follow-up was recommended. There is also a small right renal hypodensity too small to characterize no hydronephrosis or hydroureter. These findings were relayed to the patient at bedside. Upon repeat assessment patient is having significant difficulty with ranging her lower back and has developed more classic paraspinal pain that is consistent with lumbago although she does not have an inciting event. She does not have any red flags to warrant further imaging for spinal cord compressive pathology. Patient was able to ambulate at bedside and given this patient we discharged with outpatient PCP follow-up and will be discharged with a muscle relaxer, lidocaine patches, high-dose ibuprofen. Critical Care Critical Care Time Critical Care Time: No
[2025-01-16 16:16] LABS: Appearance,Urine CLEAR (Clear); Bilirubin,Urine Negative (Negative); Blood, Urine Negative (Negative); Color,Urine YELLOW (Yellow); Glucose,Urine (UA) >=1000 (Negative); Ketones,Urine Negative (Negative); Leukocyte Esterase,Urine Negative (Negative); Microscopic, Urine URINE MICROSCOPIC (MICROSCOPIC); Nitrate,Urine Negative (Negative); PH,Urine 5.5 (5.0-8.5); Protein,Urine Negative (Negative); Specific Gravity, Urine 1.015 (1.005-1.030); Urobilinogen,Urine 0.2 EU/dl (0.2)
[2025-01-16 16:18] LABS: Lipase 75 U/L (23-300)
[2025-01-16] MEDS: ACETAMINOPHEN 500MG TAB 1000 MG PO (16:21)
[2025-01-16] MEDS: MORPHINE 4MG/ML SYRINGE 4 MG IV (16:21)
[2025-01-16] MEDS: IOPAMIDOL-370 (76%);100ML BOTTLE 75 ML IV (16:49)
[2025-01-16] MEDS: SODIUM CHLORIDE 0.9% 10ML SYR (RAD ONLY) 10 ML IV (16:49)
[2025-01-16 17:12] LABS: WBC,Urine Occasional #/hpf (0-3)
[2025-01-16 17:13] LABS: Bacteria,Urine 2+ /lpf; Yeast,Urine Occasional /lpf
--- NOTE | 2025-01-16 17:39 | P.HP_ITS ---
[facility] Disclaimer: The information contained in this section may have been updated after the patient was seen, as this information can be updated by other users. Medical History (Updated 12/24/24 @ 04:47 by Nicholas Winter MD) Depression Anxiety History of gastroesophageal reflux (GERD) Diabetes mellitus, type 2 Hypertension Surgical History (Updated 05/22/24 @ 10:27 by Kati Le RN) History of section History of cholecystectomy History of hysterectomy Social History Smoking Status: Never smoker alcohol intake: never substance use type: denies use current occupational status: employed Travel in the last 8 weeks: None Have you lived/traveled outside [place] in past 30 days?: No Contact w/someone who lives/traveled outside [place] past 30 days?: No Exposure to someone with infectious disease in past 14 days?: No Do you have a fever (greater than 100.4 F or 38 C)?: No Have you tested positive for COVID-19: No Exposed to someone with COVID-19 in past 14 days?: No Do you have a sore throat?: No Do you have a cough?: No Do you have any weakness?: No Do you have any diarrhea?: No Are you experiencing any unusual bleeding?: No Do you have any muscle aches/pain?: No Do you have any abdominal pain?: No Are you experiencing loss of taste or smell?: No Other Medical History Have you received the Flu Vaccine for this season: No Meds Home Medications and Allergies Home Medications ?Medication ?Instructions ?Recorded ?Confirmed ?Type empagliflozin 25 mg tablet 25 mg PO DAILY 05/22/24 11/21/24 History (Jardiance) losartan 100 mg tablet 100 mg PO DAILY 05/22/24 11/21/24 History tirzepatide 10 mg/0.5 mL 10 mg SQ WEEKLY 05/22/24 11/21/24 History subcutaneous pen injector (Mounjaro) venlafaxine 75 mg capsule,extended 75 mg PO DAILY 05/22/24 11/21/24 History release 24 hr triamcinolone acetonide 0.1 % 1 applic topical TID #30 grams 11/11/24 Rx topical cream levofloxacin 750 mg tablet 750 mg PO DAILY 10 days #10 tabs 11/12/24 11/21/24 Rx benzonatate 100 mg capsule 100 mg PO TIDP PRN Cough #30 caps 11/21/24 Rx ondansetron 4 mg disintegrating 4 mg PO Q8H PRN Nausea #12 tabs 11/21/24 Rx tablet oseltamivir 75 mg capsule (Tamiflu) 75 mg PO BID 5 days #10 caps 11/21/24 Rx New Prescriptions to Start Prescriptions: Allergies Allergy/AdvReac Type Severity Reaction Status Date / Time erythromycin base Allergy Unknown Verified 01/09/24 12:36 allergy reaction Exam Data for Last 24 hours Vital signs and Labs for Last 24 Hours: Temp Pulse Resp BP Pulse Ox O2 Del Method 98.1 F 67 22 133/87 97 Room Air 01/16/25 15:14 01/16/25 16:00 01/16/25 16:00 01/16/25 16:00 01/16/25 16:00 01/16/25 15:30 Laboratory Results - last 24 hr 01/16/25 15:20: Urine Color Yellow, Urine Appearance Clear, Urine pH 5.5, Ur Specific [place] 1.015, Urine Protein Negative, Urine Glucose (UA) >=1000, Urine Ketones Negative, Urine Blood Negative, Urine Nitrate Negative, Urine Bilirubin Negative, Urine Urobilinogen 0.2, Ur Leukocyte Esterase Negative, Urine RBC 5- 10, Urine WBC Occasional, Ur Squamous Epith Cells 5-10, Urine Bacteria 2+, Urine Yeast Occasional 01/16/25 15:30: WBC 8.9, RBC 5.03, Hgb 14.7, Hct 44.0, MCV 87.5, MCH 29.2, MCHC 33.4, RDW 13.3, Plt Count 253, MPV 9.7, Neut % (Auto) 61.6, Lymph % (Auto) 27.1, [place] % (Auto) 9.4 H, Eos % (Auto) 1.3, Baso % (Auto) 0.4, Neut # (Auto) 5.5, Lymph # (Auto) 2.4, [place] # (Auto) 0.8, Eos # (Auto) 0.1, Baso # (Auto) 0.0, Sodium 140, Potassium 3.8, Chloride 102, Carbon Dioxide 30, Anion Gap 11.8, BUN 16, Creatinine 0.70, Estimated Creat Clear 149, Estimated GFR 89, Est GFR ( Amer) 108, Glucose 78, Calcium 9.5, Total Bilirubin 0.5, AST 33, ALT 26, Alkaline Phosphatase 81, Total Protein 7.7, Albumin 4.8, Globulin 2.9, Albumin/Globulin Ratio 1.7, Lipase 75 I & O for Last 24 hours: Intake & Output 01/13/25 01/14/25 01/15/25 01/16/25 23:59 23:59 23:59 23:59 Weight 96.162 kg
[2025-01-16] MEDS: LIDOCAINE 5% TRANSDERMAL PATCH 1 EACH TD (18:51)
[2025-01-16] MEDS: OXYCODONE 5MG IMMEDIATE RELEASE TABLET 5 MG PO (18:51)
== END 2025-01-16 18:57 | disposition home or self-care (01) ==
PROVIDERS: Emergency Medicine; Emergency Provider Emergency Medicine; PCP Pediatrics
DX: M54.9 Dorsalgia, unspecified (principal); R31.9 Hematuria, unspecified
CPT/HCPCS: 74177; 80053; 81001; 83690; 85025; 87086; 96374; 96375; 99285; J1885; J2270; J2405; Q9967

== ENCOUNTER 2025-09-22 08:10 | Outpatient (CLI) | payer BC, OTHER, SELFPAY ==
--- OUTSIDE RECORDS SUMMARY | 2025-07-31 12:30 | XMS_ITS | Encounter Summary ---
Author Organization [facility] Address [address] [place] [address] Care Team Providers Care Prop Sawyer Name Role Phone Gavin Jo MD Primary Care Provider [phone] Encounter Details Date Type Department Care Team (Latest Contact Info) Description 07/31/2025 1:30 PM EDT Office Visit [facility] [address] [address] Angelika Pierre APRN [address] [phone] Postoperative visit (Primary Dx) Social History Tobacco Use Types Packs/Day Years Used Date Smoking Tobacco: Never Passive Smoke Exposure: Never Smokeless Tobacco: Never Tobacco Cessation:Counseling Given: No Alcohol Use Standard Drinks/Week Comments Not Currently 0 (1 standard drink = 0.6 oz pur e alcohol) [facility] Utilities Answer Date Recorded In the past 12 months has [employer] oil, or water [employer] threatened to shut off services in your home? No 07/22/2025 AUDIT-C Answer Date Recorded Q1: How often do you have a drink containing alc ohol? Patient declined 07/22/2025 Q2: How many drinks containi ng alcohol do you have on a typical day when you are drinking? Patient declined 07/22/2025 Q3: How often do you have si x or more drinks on one occasion? Patient declined 07/22/2025 Overall Financial Resource Strain (CARDIA) Answe r Date Recorded How hard is it for you to pa y for the very basics like food, housing, medical care, and heating? Not very hard 07/22/2025 [facility] - Occupational Stress Questionnaire Answer Date Recorded Do you feel stress - tense, restless, nervous, or anxious, or unable to sleep at night because your mind is troubled all the time - these days? Not at all 07/22/2025 Exercise Vital Sign Answer Date Recorde d On average, how many days pe r week do you engage in moderate to strenuous exercise (like a brisk walk)? 0 days 07/22/2025 On average, how many minutes do you engage in exercise at this level? 0 min 07/22/2025 Hunger Vital Sign Answer Date Recorded Within the past 12 months, y ou worried that your food would run out before you got the money to buy more. Never true 07/22/20 25 Within the past 12 months, t he food you bought just didn't last and you didn't have money to get more. Never true 07/22/2025 PRAPARE - Transportation Answer Date Re corded In the past 12 months, has l ack of transportation kept you from medical appointments or from getting medications? No 06/25 In the past 12 months, has l ack of transportation kept you from meetings, work, or from getting things needed for daily living? No 07/22/2025 Abuse Screen Answer Date Recorded Feels Unsafe at Home or Work/School no 07/22/2025 Feels Threatened by Someone no 06/25 Does Anyone Try to Keep You From Having Contact with Others or Doing Things Outside Your Home? no 07/22/2025 Physical Signs of Abuse Present no 07/22/2025 Housing Stability Answer Date Recorded Current Living Arrangements home 06/25 Potentially Unsafe Housing Conditions none 07/22/2025 Family and Community Support Answer John e Recorded If for any reason you need h elp with day-to-day activities such as bathing, preparing meals, shopping, managing finances, etc., do you get the help you need? I don't need any help 07/22/2025 How often do you feel lonely or isolated from those around you? Never 07/22/2025 Employment Answer Date Recorded Do you want help finding or keeping work or a job? I do not need or want help 07/22/2025 Disabilities Answer Date Recorded Difficulty Concentrating, Remembering or Making Decisions no 07/22/2025 Difficulty Managing Errands Independently no 07/22/2025 Education Answer Date Recorded Do you want help with school or training? For example, starting or completing job training or getting a high school diploma, GED or equivalent No 07/22/2025 Preferred Language Micronesian 07/22/2025 PHQ-2 Answer Date Recorded Patient Health Questionnaire-2 Score 0 07/22/2025 Comments No Sex and Gender Information Value Date Recorded Sex Assigned at Female 04/17/2025 11:38 AM EDT Legal Sex Female 1:04 PM EDT Gender Identity Not on file Sexual Orientation Straight 04/17/2025 11 :38 AM EDT documented as of this encounter Last Filed Vital Signs Vital Sign Reading Time Taken Comments Blood Pressure 122/84 07/31/2025 1:21 PM EDT Pulse 91 07/31/2025 1:21 PM EDT Temperature 36.1 C (96.9 F) 07/31/2025 1:21 PM EDT Respiratory Rate 18 07/31/2025 1:21 PM EDT Oxygen Saturation 98% 07/31/2025 1:21 PM EDT Inhaled Oxygen Concentration - - Weight 99.1 kg (218 lb 6.4 oz) 07/31/2025 1:21 P M EDT Height 163.8 cm (5' 4.5 ) 07/31/2025 1:21 PM EDT Body Mass Index 36.91 07/31/2025 1:21 PM EDT documented in this encounter Progress Notes * Angelika Pierre APRN - 07/31/2025 1:30 PM EDT [facility] [address] [place] [address] [facility] [address] Patient Name: Ashely Gross : 1975 Date of Visit: 07/31/2025 Reason for Visit: POD #12 HPI: Ashely Gross is a 50 y.o. female s/p 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 Gross Discharged on POD#5. Hyperbilirubinemia (Most likely etiology was hemobilia from left lobe liver biopsy that led to a clot causing partial obstruction of the common bile duct.) Observation w/ serial LFT's in hospital. Total bili peaked 07/22 (12.7) last total bili 07/24/25 (2.2). ----- Had over 30 BM Tuesday - watery. Has had 2 BM today - loose. Overall, improvement. Denies bloody stool. Denies dysphagia, reflux, nausea, vomiting, and abdominal pain. Tolerating diet progression. Getting 60-100g prot/day. Drinking 64 fluid oz/day. Voiding well. Not yet taking vitamins. Not taking Omeprazole . Holding ASA , NSAIDs , Steroids, and GLP-1. Ambulating frequently. Resumed Eliquis. Presurgery weight: 227 pounds. Today's weight is 99.1 kg (218 lb 6.4 oz) pounds, today's Body mass index is 36.91 kg/m??., and weight loss since surgery is 9 pounds[address] Path reviewed w/ pt: Final Diagnosis Date Value Ref Range Status 07/19/2025 Final Liver, biopsy: Patchy mild chronic portal inflammation Focal bile duct proliferation of uncertain significance Minimal macrovesicular steatosis (less than 5% of the submitted tissue) without features of steatohepatitis No identified iron deposition No identified dysplasia or malignancy Past Medical History: Diagnosis Date Anxiety Arthritis Atrial fibrillation currently on cardizem, eliquis. Follows w/ cardiology (Dr. Mendes, ) CAD (coronary artery disease) Multivessel disease, CT angio 12/18 Celiac disease By duod biopsy EGD Dr. Barriga 05/17, GI evaluation pending 05/24/25 Depression Heartburn Hiatal hernia with gastroesophageal reflux UGI 03/01/25, EGD Dr. Barriga05/17 Hx of colonic polyps C-scope Case 05/16 - asc colon tubular adenoma 3-4 mm Hypertension Joint pain prn tylenol Lung nodule seen on imaging study following w/ pulmonary (normal spontaneous vaginal delivery) x 1, 1st child, preeclampsia PVC's (premature ventricular contractions) Sigmoid diverticulosis C-scope Case 05/16 Sleep apnea CPAP non-compliant Type 2 diabetes mellitus Dx 15 yrs ago, never been on Insulin, currently on jardiance, tirzepatide, last A1C 6.4 Vitamin D deficiency Past Surgical History: Procedure Laterality Date BILATERAL BREAST REDUCTION 2008 BILIOPANCREATIC DIVISION W DUODENAL SWITCH N/A 07/19/2025 Procedure: BILIOPANCREATIC DIVERSION WITH DUODENAL SWITCH WITH DAVINCI ROBOT; Surgeon: Stewart Barriga MD; Location: [facility]; Service: Robotics - DaVinci; Laterality: N/A; SECTION 2006 low transverse. Emergency 6 weeks early, ?HELLP ENDOSCOPY N/A 07/19/2025 Procedure: ESOPHAGOGASTRODUODENOSCOPY; Surgeon: Stewart Barriga MD; Location: [facility]; Service: General; Laterality: N/A; SCOPE 752 ENDOSCOPY [address]23 Dr. Jain, benign GASTRIC SLEEVE LAPAROSCOPIC 08/23/2022 w/ Dr. Gross HIATAL HERNIA REPAIR N/A 07/19/2025 Procedure: LAPAROSCOPIC HIATAL HERNIA REPAIR WITH DAVINCI ROBOT; Surgeon: Stewart Barriga MD; Location: [facility]; Service: Robotics - DaVinci; Laterality: N/A; KNEE SURGERY Left 2017 LAPAROSCOPIC CHOLECYSTECTOMY 2001 (-) gallstones LAPAROSCOPIC HYSTERECTOMY L ovary intact LIVER BIOPSY N/A 07/19/2025 Procedure: LIVER BIOPSY LAPAROSCOPIC; Surgeon: Stewart Barriga MD; Location: [facility]; Service: Robotics - DaVinci; Laterality: N/A; SOFT TISSUE CYST EXCISION Right 1987 foot Outpatient Medications Marked as Taking for the 07/31/25 encounter (Office Visit) with Angelika Pierre APRN Medication Sig Dispense Refill apixaban (ELIQUIS) 5 MG tablet tablet Take 1 tablet by mouth Every 12 (Twelve) Hours. dilTIAZem CD (CARDIZEM CD) 240 MG 24 hr capsule Take 1 capsule by mouth Daily. nystatin (MYCOSTATIN) [id number] UNIT/GM cream Apply 1 Application topically to the appropriate area asdirected See Admin Instructions. Apply topically to the affected area twice daily valsartan (DIOVAN) 160 MG tablet Take 1 tablet by mouth Daily. venlafaxine XR (EFFEXOR-XR) 150 MG 24 hr capsule Take 1 capsule by mouth Daily. Allergies Allergen Reactions Clarithromycin Rash and GI Intolerance Happened in childhood Clindamycin Rash Happened in childhood Social History Socioeconomic History Marital status: Tobacco Use Smoking status: Never Passive exposure: Never Smokeless tobacco: Never Vaping Use Vaping status: Never Used Substance and Sexual Activity Alcohol use: Not Currently Drug use: Not Currently Sexual activity: Defer Social History Social History Narrative Pt lives in [facility], she is with 2 adult children. 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 BP 122/84 Pulse 91 Temp 96.9 ??F (36.1 ??C) (Temporal) Resp 18 Ht 163.8 cm (64.5 ) Wt 99.1 kg (218 lb 6.4 oz) SpO2 98% BMI 36.91 kg/m?? Physical Exam Constitutional: Appearance: She is well-developed. She is not ill-appearing. Eyes: General: No scleral icterus. Cardiovascular: Rate and Rhythm: Normal rate. Pulmonary: Effort: Pulmonary effort is normal. Abdominal: Palpations: Abdomen is soft. Tenderness: There is no abdominal tenderness. Comments: incisions healing well. Mild redness surrounding all lap sites consistent w/ dermatitis. Resolving lower abdominal ecchymosis. Musculoskeletal: General: Normal range of motion. Skin: General: Skin is warm and dry. Coloration: Skin is not jaundiced. Findings: No rash. Neurological: Mental Status: She is alert. Psychiatric: Behavior: Behavior is cooperative. Judgment: Judgment normal. Assessment: POD #12 s/p robotic lap DS/BPD/HHR w/ falciform ligament reinforcement/liver bx (steatosis) 07/19/25 w/ [facility], previous LSG 08/23/22 w/ Class 2 Severe Obesity (BMI >=35 and <=39.9). Obesity-related health conditions include the following: see above. Obesity is improving with treatment. BMI is is above average; BMI management plan is completed. We discussed see plan. Plan: Doing well. Recommend fiber, probiotic. Continue to advance diet per manual. Continue durfdes980u/day. Increase exercise/activity as tolerated. Reviewed lifting restrictions, nothing >25 lbs x 2 more weeks. Start vitamins as discussed. Start taking home PPI. Continue to avoid ASA/NSAIDs/tobacco/steroids x 1 week. Call w/ problems/concerns. The patient was instructed to follow up in 3 weeks, sooner if needed. Angelika Pierre APRN documented in this encounter Plan of Treatment Upcoming Encounters Date Type Department Care Team (Late st Contact Info) Description 10/11/2025 11:30 AM EST Office Visit [facility] [address] [facility] [address] [place] [address] Lesia Mcmillan MD [address] [facility] [address] [place], [place] [id number] 11/29/2025 8:30 AM EST Appointment [facility] [address] [place] [id number] 12/13/2025 11:00 AM EST Office Visit [facility] [address] [facility] [place] [place] [phone] Mu Castillo DO [address] [place] [address] documented as of this encounter Visit Diagnoses Diagnosis Postoperative visit- Primary documented in this encounter Care Teams Prop Sawyer Relationship Specialty Start Date End Date Gavin Jo MD [address] [place] [address] PCP - General Internal Medicine 02/21/23 documented as of this encounter
--- OUTSIDE RECORDS SUMMARY | 2025-08-06 10:30 | XMS_ITS | Encounter Summary ---
Author Organization [facility] Address [address] [place] [address] Care Team Providers Care Research Project Manager Name Role Phone Gavin Jo MD Primary Care Provider [phone] Reason for Referral * MRI/CAT/PET Scan (Emergency) - Closed Specialty Diagnoses / Procedures Referred By Contac t Referred To Contact Radiology Diagnoses Abdominal pain of multiple sites Procedures CT Abdomen Pelvis With Contrast Angelika Pierre APRN [address] [address] Phone: tel: fax: [facility] [address] [place] [address] Phone: tel: Referral ID Status Reason Start Date Expiration Date Visits Re quested Visits Authorized [id number] Closed 08/06/2025 11/05/2026 1 1 Encounter Details Date Type Department Care Team (Late st Contact Info) Description 08/06/2025 11:30 AM EDT Office Visit [facility] BARIATRIC SURGERY [address] [facility] [address] [place] [id number] Angelika Pierre APRN [address] [address] Obesity, Class II, BMI 35-39.9 (Primary Dx); Abdominal pain of multiple sites; Intestinal malabsorption, unspecified type; Fatigue, unspecified type Social History Tobacco Use Types Packs/Day Years Used Date Smoking Tobacco: Never Passive Smoke Exposure: Never Smokeless Tobacco: Never Tobacco Cessation:Counseling Given: Not Answered Alcohol Use Standard Drinks/Week Comments Not Currently 0 (1 standard drink = 0.6 oz pur e alcohol) [facility] Utilities Answer Date Recorded In the past 12 months has th e electric, gas, oil, or water company threatened to shut off services in your [...] care, and heating? Not very hard 07/22/2025 [facility] Occupat ional Health - Occupational Stress Questionnaire Answer Date Recorded [...] GED or equivalent No 07/22/2025 Preferred Language Russian 07/22/2025 PHQ-2 Answer Date Recorded Patient Health [...] Sign Reading Time Taken Comments Blood Pressure 142/86 08/06/2025 11:21 AM EDT Pulse 75 08/06/2025 11:21 AM EDT Temperature 36.3 C (97.3 F) 08/06/2025 11:21 AM EDT Respiratory Rate 18 08/06/2025 11:21 AM EDT Oxygen Saturation 97% 08/06/2025 11:21 AM EDT Inhaled Oxygen Concentration - - Weight 98.9 kg (218 lb) 08/06/2025 11:21 AM EDT Height 163.8 cm (5' 4.5 ) 08/06/2025 11:21 AM ED T Body Mass Index 36.84 08/06/2025 11:21 AM EDT documented in this encounter Progress Notes * Angelika Pierre APRN - 08/06/2025 11:30 AM EDT [facility] Bariatric Surgery [address] [facility] [address] Patient Name: Ashely Gross : 1975 Date of Visit: 08/06/2025 Reason for Visit: POD #18 HPI: Ashely Gross is a 50 y.o. [...] (12.7) last total bili 07/24/25 (2.2). ----- Presents w/ 2 day history of shooting pain to R side of umbilicus, which is occurring all the time,plus sharp/pulling pain at epigastric and L abdominal, which comes and goes. Unrelated to eating. Reports constant nausea. Taking Zofran - which helps a little. No vomiting. Taking Omeprazole daily. Having 3-4 BM per day - loose. Having carbone/black stool w/ tar like texture. Taking PO iron, denies pepto. Also having pain w/ sharp breaths underneath bilateral ribs. Denies cough, SOB, fever. Feelingfatigue, weak. Getting 100-135g prot/day. Drinking 32 fluid oz/day. Taking all recommended vitamins. Denies ASA/NSAIDs/steroids/tobacco/nicotine. Presurgery weight: 227 pounds. Today's weight is 98.9 kg (218 lb) pounds, today's Body mass index is 36.84 kg/m??., and weight loss since surgery is 9 pounds. Past Medical History: Diagnosis Date Anxiety Arthritis [...] MD; Location: [facility]; Service: Robotics - [place]; Laterality: N/A; SECTION 2005 low transverse. Emergency 6 weeks early, ?HELLP ENDOSCOPY N/A 07/19/2025 Procedure: ESOPHAGOGASTRODUODENOSCOPY; Surgeon: Stewart Barriga MD; Location: [facility]; Service: General; Laterality: N/A; SCOPE 752 ENDOSCOPY AND [address]ONOSCOPY 2023 Dr. Jain, benign GASTRIC SLEEVE LAPAROSCOPIC 08/23/2022 w/ Dr. Gross HIATAL HERNIA REPAIR N/A 07/19/2025 Procedure: LAPAROSCOPIC HIATAL HERNIA REPAIR WITH DAVINCI ROBOT; Surgeon: Stewart Barriga MD; Location: [facility]; Service: Robotics - [place]; Laterality: N/A; KNEE SURGERY Left 2016 LAPAROSCOPIC CHOLECYSTECTOMY 2001 (-) gallstones LAPAROSCOPIC HYSTERECTOMY L ovary intact LIVER BIOPSY N/A 07/19/2025 Procedure: LIVER BIOPSY LAPAROSCOPIC; Surgeon: Stewart Barriga MD; Location: [facility]; Service: Robotics - [place]; Laterality: N/A; SOFT TISSUE CYST EXCISION Right 1987 foot No outpatient medications have been marked as taking for the 08/06/25 encounter (Office Visit) Angelika Hernandez APRN. Allergies Allergen Reactions Clarithromycin Rash and GI Intolerance Happened in childhood Clindamycin Rash Happened in childhood Social History Socioeconomic History Marital status: Tobacco Use Smoking status: Never Passive exposure: Never Smokeless tobacco: Never Vaping Use Vaping status: Never Used Substance and Sexual Activity Alcohol use: Not Currently Drug use: Not Currently Sexual activity: Defer Social History Social History Narrative Pt lives in [facility] [place] [facility] [place], she is with 2 adult children. 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 BP 142/86 (BP Location: Left arm, Patient Position: Sitting) Pulse 75 Temp 97.3 ??F (36.3 ??C) Resp 18 Ht 163.8 cm (64.5 ) Wt 98.9 kg (218 lb) SpO2 97% BMI 36.84 kg/m?? Physical Exam Constitutional: Appearance: She is [...] is cooperative. Judgment: Judgment normal. Assessment: POD #18 s/p 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 Gross ICD-10-CM ICD-9-CM 1. Obesity, Class II, BMI 35-39.9 E66.812 278.00 2. Abdominal pain of multiple sites R10.85 789.09 3. Intestinal malabsorption, unspecified type K90.9 579.9 4. Fatigue, unspecified type R53.83 780.79 Class 2 Severe Obesity (BMI >=35 and <=39.9). Obesity-related health conditions include the following: see above. Obesity is improving with treatment. BMI is is above average; BMI management plan is completed. We discussed see plan. Plan: CBC, CMP, prealbumin ordered. CT abd/pel w/ IV and PO contrast ordered. Will discuss w/ Dr. Barriga. Additional input to follow. Continue to advance diet per manual. Continue protein 100+g/day. Increase exercise/activity as tolerated. Reviewed lifting restrictions, nothing >25 lbs x 3 more days. Continue vitamins. Continue PPI. Continue to avoid ASA/NSAIDs/tobacco/steroids x 3 more days. Call w/ problems/concerns. The patient was instructed to follow up as previously scheduled, sooner if needed. Angelika Pierre APRN documented in this encounter Plan of Treatment Upcoming Encounters Date Type Department Care Team (Late st Contact Info) Description 10/11/2025 11:30 AM EST Office Visit [facility] BARIATRIC SURGERY [address] [facility] [address] [place] [address] Lesia Mcmillan MD [address] [place] [address] 11/29/2025 8:30 AM EST Appointment [facility] AT [address] [phone] 12/13/2025 11:00 AM EST Office Visit [facility] PULMONARY & CRITICAL CARE MEDICINE [address] [place] [id number] Mu Castillo, [address] [place] [address] documented as of this encounter Procedures Procedure Name Priority Date/Time Associated Diagnosis Comments CBC AND DIFFERENTIAL Routine 08/06/2025 12:16 PM EDT Obesity, Class II, BMI 35-39.9 Intestinal malabsorption, unspecified type Fatigue, unspecified type PREALBUMIN Routine 08/06/2025 12:16 PM EDT Obesity, Class II, BMI 35-39.9 Intestinal malabsorption, unspecified type Fatigue, unspecified type COMPREHENSIVE METABOLIC PANEL Routine 08/06/2025 12:16 PM EDT Obesity, Class II, BMI 35-39.9 Intestinal malabsorption, unspecified type Fatigue, unspecified type documented in this encounter Results * CT Abdomen Pelvis With Contrast (08/06/2025 2:03 PM EDT) Anatomical Region Laterality Modality Abdomen, Pelvis N/A Computed Tomogra phy 08/06/2025 2:11 PM EDT Impressions 08/06/2025 2:23 PM EDT Impression: 1.Postoperative changes of biliopancreatic diversion/duodenal switch. No evidence of bowel obstruction. 2.Small volume free fluid in the pelvis, nonspecific. 3.Stable appearing solid pulmonary nodule in the superior segment right lower lobe measuring 1 cm. Electronically Signed: Rafat Mendosa MD 08/06/2025 2:23 PM EDT Workstation ID: [id number] Narrative 08/06/2025 2:[address] ABDOMEN PELVIS W CONTRAST Date of Exam: 08/06/2025 1:47 PM EDT Indication: abd.pain. Comparison: MR abdomen 07/20/2025. CT abdomen pelvis 07/20/2025. Technique: Axial CT images were obtained of the abdomen and pelvis following the uneventful intravenous administration of iodinated contrast. Reconstructed coronal and sagittal images were also obtained. Automated exposure control and iterative construction methods were used. Findings: Included Chest:. Bibasal atelectasis. Stable appearing solid pulmonary nodule in the superior segment right lower lobe measuring 1 cm. Liver: No significant abnormality. Gallbladder and biliary tree: Cholecystectomy. Interval decreased biliary ductal dilatation. Spleen: No significant abnormality. Pancreas: No significant abnormality. Adrenal glands: No significant abnormality. Kidneys and ureters: Unchanged fat attenuating lesions in the right kidney, likely small angiomyolipomas. No hydroureteronephrosis. Stomach and duodenum: Status post biliopancreatic diversion/duodenal switch. Small and large bowel: Colonic diverticulosis. No evidence of bowel obstruction. Normal-appearing appendix. Postoperative changes of biliopancreatic diversion/duodenal switch procedure. Positive oral contrast opacifies the small bowel with patent appearing anastomotic sites. No significant pericolonic inflammatory changes seen. Peritoneal cavity: Small volume free fluid in the pelvis, nonspecific. No free air. Bladder: No significant abnormality. Pelvic organs: Hysterectomy Vasculature: No significant abnormality Lymph nodes: No pathologic appearing lymph nodes by imaging criteria. Bones and soft tissues: Degenerative changes of the imaged spine. No acute osseous abnormality. Ventral and left lateral abdominal wall fat stranding, without organized fluid collection, likely postsurgical change. Procedure Note Rafat Mendosa MD - 08/06/2025 CT ABDOMEN PELVIS W CONTRAST Date of Exam: 08/06/2025 1:47 PM EDT Indication: abd.pain. Comparison: MR abdomen 07/20/2025. CT abdomen pelvis 07/20/2025. Technique: Axial CT images were obtained of the abdomen and pelvisfollowing the uneventful intravenous administration of iodinated contrast.Reconstructed coronal and sagittal images were also obtained. Automatedexposure control and iterative construction methods were used. Findings: Included Chest:. Bibasal atelectasis. Stable appearing solid pulmonarynodule in the superior segment right lower lobe measuring 1 cm. Liver: No significant abnormality. Gallbladder and biliary tree: Cholecystectomy. Interval decreased biliaryductal dilatation. Spleen: No significant abnormality. Pancreas: No significant abnormality. Adrenal glands: No significant abnormality. Kidneys and ureters: Unchanged fat attenuating lesions in the rightkidney, likely small angiomyolipomas. No hydroureteronephrosis. Stomach and duodenum: Status post biliopancreatic diversion/duodenalswitch. Small and large bowel: Colonic diverticulosis. No evidence of bowelobstruction. Normal-appearing appendix. Postoperative changes ofbiliopancreatic diversion/duodenal switch procedure. Positive oralcontrast opacifies the small bowel with patent appearing anastomotic sites. No significant pericolonic inflammatorychanges seen. Peritoneal cavity: Small volume free fluid in the pelvis, nonspecific. Nofree air. Bladder: No significant abnormality. Pelvic organs: Hysterectomy Vasculature: No significant abnormality Lymph nodes: No pathologic appearing lymph nodes by imaging criteria. Bones and soft tissues: Degenerative changes of the imaged spine. No acuteosseous abnormality. Ventral and left lateral abdominal wall fatstranding, without organized fluid collection, likely postsurgicalchange. IMPRESSION: Impression: 1.Postoperative changes of biliopancreatic diversion/duodenal switch. Noevidence of bowel obstruction. 2.Small volume free fluid in the pelvis, nonspecific. 3.Stable appearing solid pulmonary nodule in the superior segment rightlower lobe measuring 1 cm. Electronically Signed: Rafat Mendosa MD 08/06/2025 2:23 PM EDT Workstation ID: [id number] Angelika Pierre SUPERVISOR LEAD REFINERY IMG CT ORDERABLES Final Result * Prealbumin (08/06/2025 12:16 PM EDT) [facility] Prealbumin 14 12 - 34 mg/dL [facility] Blood 08/06/2025 12:1 6 PM EDT 08/06/2025 Narrative [facility] (AMBULATORY) - 08/07/2025 8:12 AM EDT Performed at: - [address] [id number] Shift Production Associate: Von Alcala PhD, Phone: [phone] Patient Fasting: N Angelika Pierre APRN LAB BLOOD ORDERABLES Final Res ult [facility] (AMBULATORY) [address] [place] [address], [place] [phone] [facility] [address] [place] [address], [place] [phone] * (ABNORMAL) Comprehensive Metabolic Panel (08/06/2025 12:16 PM EDT) [facility] Glucose 114(H) 70 - 99 mg/dL [facility] BUN 14 6 - 24 mg/dL [facility] Creatinine 0.58 0.57 - 1.00 mg/dL [facility] EGFR Result 111 >59 mL/min/1.7 3 [facility] BUN/Creatinine Ratio 24(H) 9 - 23 [facility] Sodium 143 134 - 144 mmol/L [facility] Potassium 4.1 3.5 - 5.2 mmol/L [facility] Chloride 103 96 - 106 mmol/L [facility] Total CO2 28 20 - 29 mmol/L [facility] Calcium 8.7 8.7 - 10.2 mg/dL [facility] Total Protein 6.2 6.0 - 8.5 g/dL [facility] Albumin 3.7(L) 3.9 - 4.9 g/dL [facility] Globulin 2.5 1.5 - 4.5 g/dL [facility] Total Bilirubin 0.9 0.0 - 1.2 mg/dL [facility] Alkaline Phosphatase 94 41 - 116 IU/L [facility] AST (SGOT) 23 0 - 40 IU/L [facility] ALT (SGPT) 26 0 - 32 IU/L [facility] Blood 08/06/2025 12:1 6 PM EDT 08/06/2025 Narrative [facility] (AMBULATORY) - 08/07/2025 8:12 AM EDT Performed at: - [facility] [address] [place] [id number] Shift Production Associate: Von Alcala PhD, Phone: [phone] Patient Fasting: N Angelika Pierre APRN LAB BLOOD ORDERABLES Final Res ult [facility] (AMBULATORY) [address] [place] [address], [facility] [address] [place] [address], * (ABNORMAL) CBC & Differential (08/06/2025 12:16 PM EDT) WBC 8.9 3.4 - 10.8 x10E3/uL [facility] RBC 4.32 3.77 - 5.28 x10E6/uL [facility] Hemoglobin 12.7 11.1 - 15.9 g/dL [facility] Hematocrit 39.7 34.0 - 46.6 % [facility] MCV 92 79 - 97 fL [facility] MCH 29.4 26.6 - 33.0 pg [facility] MCHC 32.0 31.5 - 35.7 g/dL [facility] RDW 14.5 11.7 - 15.4 % [facility] Platelets 258 150 - 450 x10E3/uL [facility] Neutrophil Rel % 68 Not Estab. % [facility] Lymphocyte Rel % 19 Not Estab. % [facility] Monocyte Rel % 11 Not Estab. % [facility] Eosinophil Rel % 1 Not Estab. % [facility] Basophil Rel % 0 Not Estab. % [facility] Neutrophils Absolute 6.0 1.4 - 7.0 x10E3/uL [facility] Lymphocytes Absolute 1.7 0.7 - 3.1 x10E3/uL [facility] Monocytes Absolute 1.0(H) 0.1 - 0.9 x10E3/uL [facility] Eosinophils Absolute 0.1 0.0 - 0.4 x10E3/uL [facility] Basophils Absolute 0.0 0.0 - 0.2 x10E3/uL [facility] Immature Granulocyte Rel % 1 Not Estab. % [facility] Immature Grans Absolute 0.1 0.0 - 0.1 x10E3/uL [facility] Blood 08/06/2025 12:1 6 PM EDT 08/06/2025 Narrative [facility] (AMBULATORY) - 08/07/2025 8:12 AM EDT Performed at: 01 - [facility] [id number] Shift Production Associate: Von Alcala PhD, Phone: [phone] Patient Fasting: N us Angelika Pierre APRN LAB BLOOD ORDERABLES Final Res ult [facility] (AMBULATORY) [address] [place] [address], [facility] [address] [place] [address], documented in this encounter Visit Diagnoses Diagnosis Obesity, Class II, BMI 35-39.9- Primary Abdominal pain of multiple sites Intestinal malabsorption, unspecified type Fatigue, unspecified type Abdominal pain of multiple sites documented in this encounter Care Teams Research Project Manager Relationship Specialty Start Date End Date Gavin Jo MD [address] [place] [address] PCP - General Internal Medicine 02/21/23 documented as of this encounter
--- OUTSIDE RECORDS SUMMARY | 2025-08-06 11:30 | XMS_ITS | Encounter Summary ---
Author Organization [facility] Address [address] [place] [id number] Care Team Providers Care Numerologist Name Role Phone Gavin Jo MD Primary Care Provider [phone] [phone] Reason for Referral * MRI/CAT/PET Scan (Emergency) - Closed Specialty Diagnoses / Procedures Referred By Contac t Referred To Contact Radiology Diagnoses Abdominal pain of multiple sites Procedures CT Abdomen Pelvis With Contrast Angelika Pierre APRN [address] [place] [address] Phone: tel: fax: [address] [address] Phone: tel: Referral ID Status Reason Start Date Expiration Date Visits Re quested Visits Authorized [id number] Closed 08/06/2025 11/05/2026 1 1 Reason for Visit * MRI/CAT/PET Scan (Emergency) - Closed Specialty Diagnoses / Procedures Referred By Contac t Referred To Contact Radiology Diagnoses Abdominal pain of multiple sites Procedures CT Abdomen Pelvis With Contrast Angelika Pierre APRN [address] [address] Phone: tel: fax: [facility] [address] [place] [address] Phone: tel: Referral ID Status Reason Start Date Expiration Date Visits Re quested Visits Authorized [id number] Closed 08/06/2025 11/05/2026 1 1 Encounter Details Date Type Department Care Team (Latest Contact Info) Description 08/06/2025 12:30 PM EDT - 08/06/2025 11:59 PM EDT Hospital Encounter [facility] [address] [place] [address] IgnacioAngelika, CABLE REPAIRER [address] [place] [id number] Abdominal pain of multiple sites Discharge Disposition: Home or Self Care Social History Tobacco Use Types Packs/Day Years Used Date Smoking Tobacco: Never Passive Smoke Exposure: Never Smokeless Tobacco: Never Alcohol Use Standard Drinks/Week Comments Not Currently 0 (1 standard drink = 0.6 oz pur e alcohol) [facility] Utilities Answer Date Recorded In the past 12 months has [employer], gas, oil, or water [employer] threatened to shut off services in your [...] care, and heating? Not very hard 07/22/2025 [facility] of Occupat ional Health - Occupational Stress [...] GED or equivalent No 07/22/2025 Preferred Language Mauritanian 07/22/2025 PHQ-2 Answer Date Recorded Patient Health Questionnaire-2 Score 0 07/22/2025 Comments No Sex and Gender Information Value Date Recorded Sex Assigned at Female 04/17/2025 11:38 AM EDT Legal Sex Female 1:04 PM EDT Gender Identity Not on file Sexual Orientation Straight 04/17/2025 11 :38 AM EDT documented as of this encounter Medications at Time of Discharge apixaban (ELIQUIS) 5 MG tablet tablet Take 1 tablet by mouth Every 12 (Twelve) Hours. 01/25/2025 01/26/20 dilTIAZem CD (CARDIZEM CD) 240 MG 24 hr capsule Take 1 capsule by mouth Daily. 01/25/2025 01/26/20 nystatin (MYCOSTATIN) 498629 UNIT/GM cream Apply 1 Application topically to the appropriate area as directed See Admin Instructions. Apply topically to the affected area twice daily 02/01/2025 ondansetron ODT (ZOFRAN-ODT) [address] 1 tablet on the tongue Every 4 (Four) Hours As Needed for Nausea. 10 tablet 07/24/2025 10:47 AM EDT 07/24/2025 valsartan (DIOVAN) 160 MG tablet Take 1 tablet by mouth Daily. 01/11/2025 01/12/20 venlafaxine XR (EFFEXOR-XR) 150 MG 24 hr capsule Take 1 capsule by mouth Daily. 02/26/2024 Cholecalciferol 1.25 MG (20692 UT) tablet Take 1 tablet by mouth 1 (One) Time Per Week. 12 tablet 02/07/2025 08/28/20 25 Jardiance 25 MG tablet tablet Take 1 tablet by mouth Daily. 09/02/20 25 oxyCODONE (Roxicodone) 5 MG immediate release tabletIndications:M orbid exogenous obesity Take 1 tablet by mouth Every 4 (Four) Hours As Needed for Moderate Pain. 10 tablet 07/24/2025 10:47 AM EDT 07/24/2025 09/02/20 25 rosuvastatin (CRESTOR) 5 MG tablet Take 1 tablet by mouth Daily. 09/02/20 25 documented as of this encounter Plan of Treatment Upcoming Encounters Date Type Department Care Team (Late st Contact Info) Description 10/11/2025 11:30 AM EST Office Visit [facility] BARIATRIC SURGERY [address] [place] [address] Lesia Mcmillan MD [address] [place] [address] 11/29/2025 8:30 AM EST Appointment [facility] [place] [address] 12/13/2025 11:00 AM EST Office Visit [facility] PULMONARY & CRITICAL CARE MEDICINE [address] [place] [phone] Mu Castillo, [address] [place] [address] documented as of this encounter Procedures Procedure Name Priority Date/Time Associated Diagnosis Comments CT ABDOMEN PELVIS W CONTRAST STAT 08/06/2025 2:03 PM EDT Abdominal pain of multiple sites documented in this encounter Results * CT [...] MD 08/06/2025 2:23 PM EDT Workstation ID: [id number] Narrative 08/06/2025 2:[address] ABDOMEN [...] MD 08/06/2025 2:23 PM EDT Workstation ID: [id number] Angelika Pierre APRN IM CT ORDERABLES Final Result documented in this encounter Visit Diagnoses Diagnosis Abdominal pain of multiple sites documented in this encounter Administered Medications Inactive Administered Medications - up to 3 most recent administrations Medication Order MAR Action Action Date Dose Rate Site iopamidol (ISOVUE-300) 61 % injection 100 mL 100 mL, Intravenous, Once in Imaging, On Tue08/06/25 at 1500, For 1 dose Given 08/06/2025 2:01 PM EDT 84 mL documented in this encounter Care Teams Numerologist Relationship Specialty Start Date End Date Gavin Jo MD [address] [place] [address] PCP - General Internal Medicine 02/21/23 documented as of this encounter
--- OUTSIDE RECORDS SUMMARY | 2025-08-16 10:00 | XMS_ITS | Encounter Summary ---
Author Organization [facility] Address [address] [place] [address] Care Team Providers Care Bar Staff Name Role Phone Gavin Jo MD Primary Care Provider [phone] Encounter Details Date Type Department Care Team (Late st Contact Info) Description 08/16/2025 11:00 AM EDT Office Visit [facility] BARIATRIC SURGERY [address] [place] [address] [employer], STUDENT OFFICER [address] [place] [address] Obesity, Class II, BMI 35-39.9 (Primary Dx); Intestinal malabsorption, unspecified type; Abnormal blood level of iron; Vitamin D deficiency; Fatigue, unspecified type Social History Tobacco Use Types Packs/Day Years Used Date Smoking Tobacco: Never Passive Smoke Exposure: Never Smokeless Tobacco: Never Tobacco Cessation:Counseling Given: No Alcohol Use Standard Drinks/Week Comments Not Currently 0 (1 standard drink = 0.6 oz pur e alcohol) [facility] Utilities Answer Date Recorded In the past 12 months has [employer], gas, oil, or water [employer] threatened to shut off services in your [...] care, and heating? Not very hard 07/22/2025 [facility] [place] of Occupat ional Health - Occupational Stress [...] GED or equivalent No 07/22/2025 Preferred Language Nepali 07/22/2025 PHQ-2 Answer Date Recorded Patient Health [...] Sign Reading Time Taken Comments Blood Pressure 130/82 08/16/2025 10:54 AM EDT Pulse 68 08/16/2025 10:54 AM EDT Temperature 36.2 C (97.1 F) 08/16/2025 10:54 AM EDT Respiratory Rate 18 08/16/2025 10:54 AM EDT Oxygen Saturation 98% 08/16/2025 10:54 AM EDT Inhaled Oxygen Concentration - - Weight 96 kg (211 lb 9.6 oz) 08/16/2025 10:54 AM EDT Height 163.8 cm (5' 4.5 ) 08/16/2025 10:54 AM ED T Body Mass Index 35.76 08/16/2025 10:54 AM EDT documented in this encounter Progress Notes * Theron Springer APRN - 08/16/2025 11:[address] [facility] Bariatric Surgery [address] [facility] [address] Patient Name: Ashely Gross : 1975 Date of Visit: 08/16/2025 Reason for Visit: 1 month post op HPI: Ashely Gross is a 50 y.o. [...] (12.7) last total bili 07/24/25 (2.2). ----- IVAN 08/06/2025 Presents w/ 2 day history of shooting pain to R side of umbilicus, which is occurring all the time,plus sharp/pulling pain at epigastric and L abdominal, which comes and goes. Unrelated to eating. Reports constant nausea. Taking Zofran - which helps a little. No vomiting. 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 No evidence of bowel obstruction. 2.Small volume free fluid in the pelvis, nonspecific. 3.Stable appearing solid pulmonary nodule in the superior segment right lower lobe measuring 1 cm. --Update 08/16/2025 Today, feeling much improved. Denies dysphagia, reflux, nausea, vomiting, diarrhea, and constipation. Still having some acute LLQ/periumbilical pain/discomfort. Incidences occur roughly 2-3 times perday and appear to be situational with certain bending/twisting motion. Patient reports she is not c oncerned at this time . Reports 3-4 BM a day.Taking Omeprazole daily. Struggling w/ water intake. Urine is dark color. Not using any electrolytes supplements at this time. Has increased protein intake. Consuming 125 + grams of protein per day. Drinking 2-3 shakes premier shakes a day + food sources. Tracking intake with baristatic. Diet is progressing as expected. Taking all recommended vitamins. Labs on 08/06/2025 revealed a prealbumin of 14, otherwise unremarkable. Inquiring about increasing activity level with weighted bands. Currently walking between 1 to 3 miles a day. Avoiding ASA/NSAIDs/steroids/tobacco/nicotine. Presurgery weight: 227 pounds. Today's weight is 96 kg (211 lb 9.6 oz) pounds, today's Body mass index is 35.76 kg/m??., and weight loss since surgery is 16 pounds. Past Medical History: Diagnosis Date Anxiety [...] Service: [employer] - [employer]; Laterality: N/A; SECTION 2005 low transverse. Emergency [...] MD; Location: [facility]; Service: [facility] - [facility]; Laterality: N/A; SOFT TISSUE CYST EXCISION Right 1987 foot Outpatient Medications Marked as Taking for the 08/16/25 encounter (Office Visit) with Theron Springer APRN Medication Sig Dispense Refill apixaban (ELIQUIS) 5 MG tablet tablet Take 1 tablet by mouth Every 12 (Twelve) Hours. nystatin (MYCOSTATIN) 349543 UNIT/GM cream Apply 1 Application topically to [...] History Social History Narrative Pt lives in [place], she is with 2 adult children. 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 BP 130/82 Pulse 68 Temp 97.1 ??F (36.2 ??C) (Temporal) Resp 18 Ht 163.8 cm (64.5 ) Wt 96 kg (211 lb 9.6 oz) SpO2 98% BMI 35.76 kg/m?? Physical Exam Constitutional: Appearance: She is well-developed. She is not ill-appearing. Eyes: General: No scleral icterus. Cardiovascular: Rate and Rhythm: Normal rate. Pulmonary: Effort: Pulmonary effort is normal. Abdominal: Palpations: Abdomen is soft. Tenderness: There is abdominal tenderness in the periumbilical area and left lower quadrant. Comments: Incisions are well healed. Resolving lower abdominal ecchymosis. Musculoskeletal: General: Normal range of motion. Skin: General: Skin is warm and dry. Coloration: Skin is not jaundiced. Findings: No rash. Neurological: Mental Status: She is alert. Psychiatric: Behavior: Behavior is cooperative. Judgment: Judgment normal. Assessment: 1 month s/p 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 Gross ICD-10-CM ICD-9-CM 1. Obesity, Class II, BMI 35-39.9 E66.812 278.00 2. Intestinal malabsorption, unspecified type K90.9 579.9 3. Abnormal blood level of iron R79.0 790.6 4. Vitamin D deficiency E55.9 268.9 5. Fatigue, unspecified type R53.83 780.79 Class 2 Severe Obesity (BMI >=35 and <=39.9). Obesity-related health conditions include the following: see above. Obesity is improving with treatment. BMI is is above average; BMI management plan is completed. We discussed see plan. Plan: Doing well. Continue to monitor LLQ/periumbilical symptoms. Advised heating pads/abdominal binder for added support. Encouraged electrolytes addictive to water intake (liquid IV, Gatorade etc. Continue to advance diet per manual. Continue protein 125 +g/day. Increase exercise/activity as tolerated. No lifting restrictions at this time. Bariatric labs ordered. Continue vitamins w/ adjustments pending lab work. Continue PPI. Continue to avoid ASA/NSAIDs/tobacco/steroids x 3 more days. Call w/ problems/concerns. The patient was instructed to follow up in 1 month, sooner if needed. Theron Springer APRN documented in this encounter Plan of Treatment Upcoming Encounters Date Type Department Care Team (Late st Contact Info) Description 10/11/2025 11:30 AM EST Office Visit [facility] BARIATRIC SURGERY [address] [facility] [address] [place] [address] Lesia Mcmillan MD [address] [facility] [address] [place] [address] 11/29/2025 8:30 AM EST Appointment [facility] AT [address] [phone] 12/13/2025 11:00 AM EST Office Visit [facility] PULMONARY & CRITICAL CARE MEDICINE [address] [place] [id number] Mu Castillo, DO [address] [place] [address] documented as of this encounter Procedures Procedure Name Priority Date/Time Associated Diagnosis Comments CONV REQUEST PROBLEM Routine 08/16/2025 11:27 AM EDT METHYLMALONIC ACID, SERUM Routine 08/16/2025 11:27 AM EDT Obesity, Class II, BMI 35-39.9 Intestinal malabsorption, unspecified type Abnormal blood level of iron Vitamin D deficiency Fatigue, unspecified type COPPER, SERUM Routine 08/16/2025 11:27 AM EDT Obesity, Class II, BMI 35-39.9 Intestinal malabsorption, unspecified type Abnormal blood level of iron Vitamin D deficiency Fatigue, unspecified type VITAMIN B1, WHOLE BLOOD Routine 08/16/2025 11:27 AM EDT Obesity, Class II, BMI 35-39.9 Intestinal malabsorption, unspecified type Abnormal blood level of iron Vitamin D deficiency Fatigue, unspecified type ZINC Routine 08/16/2025 11:27 AM EDT Obesity, Class II, BMI 35-39.9 Intestinal malabsorption, unspecified type Abnormal blood level of iron Vitamin D deficiency Fatigue, unspecified type VITAMIN A Routine 08/16/2025 11:27 AM EDT Obesity, Class II, BMI 35-39.9 Intestinal malabsorption, unspecified type Abnormal blood level of iron Vitamin D deficiency Fatigue, unspecified type VITAMIN K1 Routine 08/16/2025 11:27 AM EDT Obesity, Class II, BMI 35-39.9 Intestinal malabsorption, unspecified type Abnormal blood level of iron Vitamin D deficiency Fatigue, unspecified type VITAMIN D,25-HYDROXY Routine 08/16/2025 11:27 AM EDT Obesity, Class II, BMI 35-39.9 Intestinal malabsorption, unspecified type Abnormal blood level of iron Vitamin D deficiency Fatigue, unspecified type PROTIME-INR Routine 08/16/2025 11:27 AM EDT Obesity, Class II, BMI 35-39.9 Intestinal malabsorption, unspecified type Abnormal blood level of iron Vitamin D deficiency Fatigue, unspecified type CBC AND DIFFERENTIAL Routine 08/16/2025 11:27 AM EDT Obesity, Class II, BMI 35-39.9 Intestinal malabsorption, unspecified type Abnormal blood level of iron Vitamin D deficiency Fatigue, unspecified type VITAMIN E Routine 08/16/2025 11:27 AM EDT Obesity, Class II, BMI 35-39.9 Intestinal malabsorption, unspecified type Abnormal blood level of iron Vitamin D deficiency Fatigue, unspecified type PREALBUMIN Routine 08/16/2025 11:27 AM EDT Obesity, Class II, BMI 35-39.9 Intestinal malabsorption, unspecified type Abnormal blood level of iron Vitamin D deficiency Fatigue, unspecified type PHOSPHORUS Routine 08/16/2025 11:27 AM EDT Obesity, Class II, BMI 35-39.9 Intestinal malabsorption, unspecified type Abnormal blood level of iron Vitamin D deficiency Fatigue, unspecified type PTH, INTACT Routine 08/16/2025 11:27 AM EDT Obesity, Class II, BMI 35-39.9 Intestinal malabsorption, unspecified type Abnormal blood level of iron Vitamin D deficiency Fatigue, unspecified type MAGNESIUM Routine 08/16/2025 11:27 AM EDT Obesity, Class II, BMI 35-39.9 Intestinal malabsorption, unspecified type Abnormal blood level of iron Vitamin D deficiency Fatigue, unspecified type IRON Routine 08/16/2025 11:27 AM EDT Obesity, Class II, BMI 35-39.9 Intestinal malabsorption, unspecified type Abnormal blood level of iron Vitamin D deficiency Fatigue, unspecified type FOLATE Routine 08/16/2025 11:27 AM EDT Obesity, Class II, BMI 35-39.9 Intestinal malabsorption, unspecified type Abnormal blood level of iron Vitamin D deficiency Fatigue, unspecified type FERRITIN Routine 08/16/2025 11:27 AM EDT Obesity, Class II, BMI 35-39.9 Intestinal malabsorption, unspecified type Abnormal blood level of iron Vitamin D deficiency Fatigue, unspecified type COMPREHENSIVE METABOLIC PANEL Routine 08/16/2025 11:27 AM EDT Obesity, Class II, BMI 35-39.9 Intestinal malabsorption, unspecified type Abnormal blood level of iron Vitamin D deficiency Fatigue, unspecified type documented in this encounter Results * Request Problem (08/16/2025 11:27 AM EDT) Request Problem CANCELED [facility] Comment: [facility] was unable to collect sufficient specimen to perform the following test(s), and is providing the patient with re-collection instructions. TEST: [id number] Vitamin B1 (Thiamine), Blood Requires: frozen, edta whole blood (from lavender top tube) Result canceled by the ancillary. 08/16/2025 11:2 7 AM EDT 08/16/2025 Narrative [facility] ([facility]) - 08/27/2025 8:11 AM EST Performed at: 01 - [address] [id number] Software Validation Engineer: Von Alcala PhD, Phone: [phone] Patient Fasting: N us Theron Springer APRN LAB BLOOD ORDERABLES Edited Re sult - Final [facility] (AMBULATORY) [address] [place] [address], [facility] [address] [place] [address], * Zinc (08/16/2025 11:27 AM EDT) Zinc 86 44 - 115 ug/dL [facility] Comment:Detection Limit = 5 Blood 08/16/2025 11:2 7 AM EDT 08/16/2025 Narrative [facility] (AMBULATORY) - 08/27/2025 8:11 AM EST Test(s) [id number]-Jfcs, Plasma or Serum was developed and its performance characteristics determined by [facility]. It has not been cleared or approved by the Food and Drug Administration. Performed at: - [address] [id number] Software Validation Engineer: Rebekah Neal MD, Phone: [phone] Patient Fasting: N us Theron A Springer STUDENT OFFICER LAB BLOOD ORDERABLES Final Res ult Performing Organization Address [facility] de Phone Number [facility] [address] [place] [address], [place] [phone] [facility] [address] [place] [address], [place] [phone] * (ABNORMAL) Vitamin K1 (08/16/2025 11:27 AM EDT) Vitamin K <0.10(L) 0.10 - 2.20 ng/mL [facility] Blood 08/16/2025 11:2 7 AM EDT 08/16/2025 [facility] (AMBULATORY) - 08/27/2025 8:11 AM EST Test(s) [id number]-Xwemqwo K1 was developed and its performance characteristics determined by [facility]. It has not been cleared or approved by the Food and Drug Administration. Performed at: - [address] [id number] Software Validation Engineer: Rebekah Neal MD, Phone: [phone] Patient Fasting: N us Theron A Springer STUDENT OFFICER LAB BLOOD ORDERABLES Final Res ult Performing Organization Address [facility] Co de Phone Number [facility] (AMBULATORY) [address] [place] [address], [place] [phone] [facility] [address] [place] [address], [place] [phone] * Vitamin E (08/16/2025 11:27 AM EDT) Vitamin E (Alpha Tocopherol) 10.5 7.0 - 25.1 mg/L [facility] Vitamin E (Gamma Tocopherol) 1.1 0.5 - 5.5 mg/L [facility] Comment: Reference intervals for alpha and gamma-tocopherol determined from National Health and Nutrition Examination Survey, 9454-9649. Individuals with alpha-tocopherol levels less than 5.0 mg/L are considered vitamin E deficient. Blood 08/16/2025 11:2 7 AM EDT 08/16/2025 Narrative [facility] (AMBULATORY) - 08/27/2025 8:11 AM EST Test(s) [id number]-Atdtxuj E(Alpha Tocopherol); 481458- Vitamin E(Gamma Tocopherol) was developed and its performance characteristics determined by [facility]. It has not been cleared or approved by the Food and Drug Administration. Performed at: 02 - [address] [id number] Software Validation Engineer: Rebekah Neal MD, Phone: [phone] Patient Fasting: N us Theron Springer STUDENT OFFICER LAB BLOOD ORDERABLES Final Res ult [facility] [address] [id number], [facility] [address] [place] [address], * Vitamin D,25-Hydroxy (08/16/2025 11:27 AM EDT) 25 Hydroxy, Vitamin D 30.4 30.0 - 100.0 ng/mL [facility] Comment: Vitamin D deficiency has been defined by the [place] of Medicine and an Endocrine Society practice guideline as a level of serum 25-OH vitamin D less than 20 ng/mL (1,2). The Endocrine Society went on to further define vitamin D insufficiency as a level between 21 and 29 ng/mL (2). 1. IOM ([place] of Medicine). 2010. Dietary reference intakes for calcium and D. [place]: The National Academies Press. 2. Arabella MF, Georgie NC, Aubrey SCHMITT, et al. Evaluation, treatment, and prevention of vitamin D deficiency: an Endocrine Society clinical practice guideline. JCEM. 2010; 96(7):1911-30. Blood 08/16/2025 11:2 7 AM EDT 08/16/2025 Narrative [facility] - 08/27/2025 8:11 AM EST Performed at: - [address] [id number] Software Validation Engineer: Von Alcala PhD, Phone: [phone] Patient Fasting: N us Theorn Springer APRN LAB BLOOD ORDERABLES Final Res ult [facility] (AMBULATORY) [address] [place] [address], [facility] [address] [place] [address], * Vitamin B1, Whole Blood (08/16/2025 11:27 AM EDT) Vitamin B1, Whole Blood CANCELED nmol/L [facility] Comment: [facility] sufficient specimen to perform the following test(s), and is providing the patient with re-collection instructions. Requires: frozen, edta whole blood (from lavender top tube) Result canceled by the ancillary. Blood 08/16/2025 11:2 7 AM EDT 08/16/2025 Narrative [facility] (AMBULATORY) - 08/27/2025 8:11 AM EST Test(s) [id number]-Nyb. B1, Whole Blood was developed and its performance characteristics determined by [facility]. It has not been cleared or approved by the Food and Drug Administration. Performed at: - [address] [id number] Software Validation Engineer: Rebekah Neal MD, Phone: [phone] Patient Fasting: N us Theron A Springer STUDENT OFFICER LAB BLOOD ORDERABLES Edited Re sult - Final Performing Organization Address [facility]/ZIP Co de Phone Number [facility] (AMBULATORY) [address] [place] [address], [facility] [address] [place] [address], * Vitamin A (08/16/2025 11:27 AM EDT) Vitamin A 25.9 20.1 - 62.0 ug/dL [facility] Comment: Reference intervals for vitamin A determined from [facility] internal studies. Individuals with vitamin A less than 20 ug/dL are considered vitamin A deficient and those with serum concentrations less than 10 ug/dL are considered severely deficient. This test was developed and its performance characteristics determined by [facility]. It has not been cleared or approved by the Food and Drug Administration. Blood 08/16/2025 11:2 7 AM EDT 08/16/2025 Narrative [facility] (AMBULATORY) - 08/27/2025 8:11 AM EST Performed at: - [address] [id number] Software Validation Engineer: Rebekah Neal MD, Phone: [phone] Patient Fasting: N us Theron Springer STUDENT OFFICER LAB BLOOD ORDERABLES Final Res ult Performing Organization Address City/[facility]/ZIP Co de Phone Number [facility] [address] [place] [address], [facility] [address] [place] [address], * Magnesium (08/16/2025 11:27 AM EDT) Magnesium 1.8 1.6 - 2.3 mg/dL [facility] Blood 08/16/2025 11:2 7 AM EDT 08/16/2025 [facility] (AMBULATORY) - 08/27/2025 8:11 AM EST Performed at: - [facility] [address] [place], [place] [id number] Software Validation Engineer: Von Alcala PhD, Phone: [phone] Patient Fasting: N Theron Springer STUDENT OFFICER LAB BLOOD ORDERABLES Final Res ult Performing Organization Address [facility] Co de Phone Number [facility]) [address] [place] [address], [place] [phone] [facility] [address] [place] [address], * Methylmalonic Acid, Serum (08/16/2025 11:27 AM EDT) Methylmalonic Acid 86 0 - 378 nmol/L [facility] Blood 08/16/2025 11:2 7 AM EDT 08/16/2025 [facility] (AMBULATORY) - 08/27/2025 8:11 AM EST Test(s) [id number] Acid, Serum was developed and its performance characteristics determined by [facility]. It has not been cleared or approved by the Food and Drug Administration. Performed at: - [address] [id number] Software Validation Engineer: Rebekah Neal MD, Phone: [phone] Patient Fasting: N Theron Weston Gian STUDENT OFFICER LAB BLOOD ORDERABLES Final Res ult Performing Organization Address [facility] de Phone Number [facility] ([facility]) [address] [place] [address], [place] [phone] [facility] [address] [place] [address], * Phosphorus (08/16/2025 11:27 AM EDT) Phosphorus 3.7 3.0 - 4.3 mg/dL [facility] Blood 08/16/2025 11:2 7 AM EDT 08/16/2025 [facility] - 08/27/2025 8:11 AM EST Performed at: - [facility] [address] [place] [id number] Software Validation Engineer: Von Alcala PhD, Phone: [phone] Patient Fasting: N Theron Springer STUDENT OFFICER LAB BLOOD ORDERABLES Final Res ult Performing Organization Address [facility] de Phone Number [facility] (AMBULATORY) [address] [place] [address], [facility] [address] [place] [address], * Prealbumin (08/16/2025 11:27 AM EDT) Prealbumin 16 12 - 34 mg/dL [facility] Blood 08/16/2025 11:2 7 AM EDT 08/16/2025 Narrative [facility] ([facility]) - 08/27/2025 8:11 AM EST Performed at: 01 - [address] [id number] Software Validation Engineer: Von Alcala PhD, Phone: [phone] Patient Fasting: N us Theron Springer STUDENT OFFICER LAB BLOOD ORDERABLES Final Res ult Performing Organization Address [facility] de Phone Number [facility] (AMBULATORY) [address] [place] [address], [place] [phone] [facility] [address] [id number], [place] [phone] * Protime-INR (08/16/2025 11:27 AM EDT) INR 1.1 0.9 - 1.2 [facility] Comment: Reference interval is for non-anticoagulated patients. Suggested INR therapeutic range for Vitamin K antagonist therapy: Standard Dose (moderate intensity therapeutic range): 2.0 - 3.0 Higher intensity therapeutic range 2.5 - 3.5 Protime 11.4 9.1 - 12.0 sec [facility] Blood 08/16/2025 11:2 7 AM EDT 08/16/2025 Narrative [facility]) - 08/27/2025 8:11 AM EST Performed at: - [facility] [address] [place] [id number] Software Validation Engineer: Von Alcala PhD, Phone: [phone] Patient Fasting: N Theron Springer STUDENT OFFICER LAB BLOOD ORDERABLES Final Res ult Performing Organization Address [facility]/ZIP Co de Phone Number [facility] (AMBULATORY) [address] [place] [address], [facility] [address] [place] [address], * PTH, Intact (08/16/2025 11:27 AM EDT) PTH, Intact 47 15 - 65 pg/mL [facility] Blood 08/16/2025 11:2 7 AM EDT 08/16/2025 Narrative [facility] (AMBULATORY) - 08/27/2025 8:11 AM EST Performed at: - [address] [id number] Software Validation Engineer: Von Alcala PhD, Phone: [phone] Patient Fasting: N us Theron Springer STUDENT OFFICER LAB BLOOD ORDERABLES Final Res ult Performing Organization Address [facility] Co de Phone Number [facility] (AMBULATORY) [address] [place] [address], [facility] [address] [place] [address], * Iron (08/16/2025 11:27 AM EDT) Iron 45 27 - 159 ug/dL [facility] Blood 08/16/2025 11:2 7 AM EDT 08/16/2025 Narrative [facility] (AMBULATORY) - 08/27/2025 8:11 AM EST Performed at: - [facility] [address] [place], [place] [id number] Software Validation Engineer: Von Alcala PhD, Phone: [phone] Patient Fasting: N us Theron Springer STUDENT OFFICER LAB BLOOD ORDERABLES Final Res ult Performing Organization Address [facility] Co de Phone Number [facility] (AMBULATORY) [address] [place] [address], [place] [phone] [facility] [address] [place] [address], [place] [phone] * Folate (08/16/2025 11:27 AM EDT) Pathologist [facility] Folate 4.3 >3.0 ng/mL [facility] Comment: A serum folate concentration of less than 3.1 ng/mL is considered to represent clinical deficiency. Blood 08/16/2025 11:2 7 AM EDT 08/16/2025 Narrative [facility] (AMBULATORY) - 08/27/2025 8:11 AM EST Performed at: - Lab[address] [id number] Software Validation Engineer: Von Alcala PhD, Phone: [phone] Patient Fasting: N us Theron Springer STUDENT OFFICER LAB BLOOD ORDERABLES Final Res ult Performing Organization Address [facility] Co de Phone Number [facility] (AMBULATORY) [address] [place] [address], [place] [phone] [facility] [address] [place] [address], [place] [phone] * Ferritin (08/16/2025 11:27 AM EDT) [facility] Ferritin 124 15 - 150 ng/mL [facility] Blood 08/16/2025 11:2 7 AM EDT 08/16/2025 Narrative [facility] ([facility]) - 08/27/2025 8:11 AM EST [facility]formed at: [facility] [address] [place] [id number] Software Validation Engineer: Von Alcala PhD, Phone: [phone] Patient Fasting: N us Theron Springer STUDENT OFFICER LAB BLOOD ORDERABLES Final Res ult Performing Organization Address City/[facility]/ZIP Co de Phone Number [facility] [address] [place] [address], [place] [phone] [facility] [address] [place] [address], [place] [phone] * (ABNORMAL) Copper, Serum (08/16/2025 11:27 AM EDT) Copper 67(L) 80 - 158 ug/dL [facility] Comment:Detection Limit = 5 Blood 08/16/2025 11:2 7 AM EDT 08/16/2025 Narrative [facility] - 08/27/2025 8:11 AM EST Test(s) 163292-[id number], Serum or Plasma was developed and its performance characteristics determined by [facility]. It has not been cleared or approved by the Food and Drug Administration. Performed at: 02 - [address] [id number] Software Validation Engineer: Rebekah Neal MD, Phone: [phone] Patient Fasting: N Theron Springer STUDENT OFFICER LAB BLOOD ORDERABLES Final Res ult Performing Organization Address City/[facility] Co de Phone Number [facility] (AMBULATORY) [address] [place] [address], [place] [phone] [facility] [address] [place] [address], [place] [phone] * (ABNORMAL) Comprehensive Metabolic Panel (08/16/2025 11:27 AM EDT) Glucose 106(H) 70 - 99 mg/dL [facility] BUN 12 6 - 24 mg/dL [facility] Creatinine 0.51(L) 0.57 - 1.00 mg/dL [facility] EGFR Result 114 >59 mL/min/1.7 3 [facility] BUN/Creatinine Ratio 24(H) 9 - 23 [facility] Sodium 145(H) 134 - 144 mmol/L [facility] Potassium 3.8 3.5 - 5.2 mmol/L [facility] Chloride 105 96 - 106 mmol/L [facility] Total CO2 24 20 - 29 mmol/L [facility] Calcium 9.3 8.7 - 10.2 mg/dL [facility] Total Protein 6.9 6.0 - 8.5 g/dL [facility] Albumin 4.1 3.9 - 4.9 g/dL [facility] Globulin 2.8 1.5 - 4.5 g/dL [facility] Total Bilirubin 0.8 0.0 - 1.2 mg/dL [facility] Alkaline Phosphatase 96 41 - 116 IU/L [facility] AST (SGOT) 34 0 - 40 IU/L [facility] ALT (SGPT) 35(H) 0 - 32 IU/L [facility] Blood 08/16/2025 11:2 7 AM EDT 08/16/2025 [facility] (AMBULATORY) - 08/27/2025 8:11 AM EST Performed at: [address] [id number] Software Validation Engineer: Von Alcala PhD, Phone: [phone] Patient Fasting: N us Theron Springer STUDENT OFFICER LAB BLOOD ORDERABLES Final Res ult [facility] (AMBULATORY) [address] [place] [address], [facility] [address] [place] [address], * (ABNORMAL) CBC & Differential (08/16/2025 11:27 AM EDT) WBC 6.5 3.4 - 10.8 x10E3/uL [facility] RBC 4.61 3.77 - 5.28 x10E6/uL [facility] Hemoglobin 13.4 11.1 - 15.9 g/dL [facility] Hematocrit 42.7 34.0 - 46.6 % [facility] MCV 93 79 - 97 fL [facility] MCH 29.1 26.6 - 33.0 pg [facility] MCHC 31.4(L) 31.5 - 35.7 g/dL [facility] RDW 14.5 11.7 - 15.4 % [facility] Platelets 214 150 - 450 x10E3/uL [facility] Neutrophil Rel % 64 Not Estab. % [facility] Lymphocyte Rel % 24 Not Estab. % [facility] Monocyte Rel % 10 Not Estab. % [facility] Eosinophil Rel % 1 Not Estab. % [facility] Basophil Rel % 1 Not Estab. % [facility] Neutrophils Absolute 4.2 1.4 - 7.0 x10E3/uL [facility] Lymphocytes Absolute 1.6 0.7 - 3.1 x10E3/uL [facility] Monocytes Absolute 0.6 0.1 - 0.9 x10E3/uL [facility] Eosinophils Absolute 0.1 0.0 - 0.4 x10E3/uL [facility] Basophils Absolute 0.0 0.0 - 0.2 x10E3/uL [facility] Immature Granulocyte Rel % 0 Not Estab. % [facility] Immature Grans Absolute 0.0 0.0 - 0.1 x10E3/uL [facility] Blood 08/16/2025 11:2 7 AM EDT 08/16/2025 Narrative [facility] ([facility]) - 08/27/2025 8:11 AM EST Performed at: 01 - [facility] [address] [id number] Software Validation Engineer: Von Alcala PhD, Phone: [phone] Patient Fasting: N us Theron Springer STUDENT OFFICER LAB BLOOD ORDERABLES Final Res ult [facility] (AMBULATORY) [address] [place] [address], [facility] [address] [place] [address], documented in this encounter Visit Diagnoses Diagnosis Obesity, Class II, BMI 35-39.9- Primary Intestinal malabsorption, unspecified type Abnormal blood level of iron Other abnormal blood chemistry Vitamin D deficiency Fatigue, unspecified type documented in this encounter Care Teams Bar Staff Relationship Specialty Start Date End Date Gavin Jo MD [address] [place] [address] PCP - General Internal Medicine 02/21/23 documented as of this encounter
--- OUTSIDE RECORDS SUMMARY | 2025-08-16 11:40 | XMS_ITS | Encounter Summary ---
Author Organization Healthcare Address [address] [place] [address] Care Team Providers Care Wetlands Conservation Laborer Name Role Phone Gavin Jo MD Primary Care Provider [phone] Randal Amaya APRN, [facility] Unavailable [phone] Reason for Referral * Consultation (Routine) - Authorized Specialty Diagnoses / Procedures Referred By Cindyac t Referred To Contact Diagnoses Paroxysmal atrial fibrillation (CMS/HCC) Coronary artery disease involving [place] coronary artery of [place] heart without angina pectoris PVC (premature ventricular contraction) Brian Mendes MD [address] [place] [address] Phone: tel: fax: Referral ID Status Reason Start Date Expiration Date V isits Requested Visits Authorized [id number] Authorized 08/16/2025 02/15/2027 1 1 * Imaging (Routine) - Pending Review Specialty Diagnoses / Procedures Referred By Contac t Referred To Contact Cardiology Diagnoses Paroxysmal atrial fibrillation (CMS/HCC) Coronary artery disease involving [place] coronary artery of [place] heart without angina pectoris PVC (premature ventricular contraction) Procedures Echo, Adult Transthoracic Complete Brian Mendes MD [address] [place] [address] Phone: tel: fax: Referral ID Status Reason Start Date Expiration Date Visits Requested Visits Authorized [id number] Pending Review Perform Procedure 02/15/2027 1 1 Encounter Details Date Type Department Care Team (Late st Contact Info) Description 08/16/2025 12:40 PM EDT Office Visit [facility] [place] [address], [address] [place] [address] Brian Mendes MD [address] [place] [address] Paroxysmal atrial fibrillation (CMS/HCC) (Primary Dx); Coronary artery disease involving [place] coronary artery of [place] heart without angina pectoris; PVC (premature ventricular contraction); Essential hypertension; Diabetes mellitus type II, non insulin dependent Social History Tobacco Use Types Packs/Day Years Used Date Smoking Tobacco: Never Smokeless Tobacco: Never Tobacco Cessation:Counseling Given: Not Answered Alcohol Use Standard Drinks/Week Comments No 0 (1 standard drink = 0.6 oz pur e alcohol) PHQ-2 Answer Date Recorded Patient Health Questionnaire-2 Score 0 08/16/2025 PHQ-9 Answer Date Recorded Patient Health Questionnaire-9 Score 0 08/16/2025 Comments No Sex and Gender Information Value Date Recorded Sex Assigned at Female 06/13/2024 1:43 PM EDT Legal Sex Female 8:48 PM EDT Gender Identity Not on file Sexual Orientation Not on file documented as of this encounter Last Filed Vital Signs Vital Sign Reading Time Taken Comments Blood Pressure 119/79 08/16/2025 12:47 PM EDT Pulse 61 08/16/2025 12:35 PM EDT Temperature - - Respiratory Rate - - Oxygen Saturation 97% 08/16/2025 12:35 PM EDT Inhaled Oxygen Concentration - - Weight 97.3 kg (214 lb 8.1 oz) 08/16/2025 12:35 PM EDT Height 163.8 cm (5' 4.5 ) 08/16/2025 12:35 PM ED T Body Mass Index 36.25 08/16/2025 12:35 PM EDT documented in this encounter Functional Status * Over the past 2 weeks, how often have you been bothered by any of the following problems? Question Answer Date of Assessment Author Little interest or pleasure in doing things Not at all 08/16/2025 12:45 PM EDT Angelika Bishop Feeling down, depressed, or hopeless Not at all 08/16/2025 12:45 PM Angelika Roe Patient Health Questionnaire -2 Score 0 08/16/2025 12:45 PM EDT Angelika Bishop * Question Answer Date of Assessment Author Trouble falling or staying a sleep, or sleeping too much Not at all 08/16/2025 12:45 PM Angelika Roe Feeling tired or having senia le energy Not at all 08/16/2025 12:45 PM Angelika Roe Poor appetite or overeating Not at all 08/16/2025 12 :45 PM EDAngelika Barlow Feeling bad about yourself - or that you are a failure or have let yourself or your family down Not at all 08/16/2025 12:45 PM EDMandy Barlow Trouble concentrating on thi ngs, such as reading the newspaper or watching television Not at all 08/16/2025 12:45 PM Angelika Roe Moving or speaking so slowly that other people could have noticed? Or the opposite - being so fidgety or restless that you have been moving around a lot more than usual. Not at all 08/16/2025 12:45 PM Angelika Roe Thoughts that you would be b cesia off or hurting yourself in some way Not at all 08/16/2025 12:45 PM Angelika Roe Patient Health Questionnaire -9 Score 0 08/16/2025 12:45 PM Angelika Roe * How difficult have these problems made it for you to do your work, take care of things at home, or get along with other people? Answer Date of Assessment Author Not difficult at all 08/16/2025 12:45 PM EDT Angelika Somers documented as of this encounter Miscellaneous Notes * Patient Instructions - Brian Mendes MD - 08/16/2025 12:40 PM EDT Images from the original note were not included. [facility] Building [address] [place] [address] [place] [address] Clinic Renita RN: [phone] Our Lab: [place] [address] (call to schedule a lab appointment) Thank you for coming to clinic today! Here is what we discussed and what I recommend: - Call me if you need anything - Please restart rosuvastatin 5 mg daily Prevention of Heart Disease To lower your risk of heart disease, I recommend following the [place] [employer]'s Life Essential 8. Visit their website (heart.org/lifes8) to learn more about each topic. [place] points: -Diet: Consume a heart health diet and avoid unhealthy foods (processed foods, fast foods, red meats, high salt, sugary drinks) -Exercise: Get 150 minutes of exercise every week -Sleep: Try to get at least 7 hours of sleep every night -Avoid Toxins: Don't use any tobacco products or illegal drugs. Drink alcohol in moderation. -Blood Pressure: Know your blood pressure. Monitor it at home. A healthy blood pressure is <130/80. -Blood Sugar and Cholesterol: these should be checked periodically and treated accordingly * Progress Notes - Brian eMndes MD - 08/16/2025 12:40 PM EDT Images from the original note were not included. Cardiology Outpatient Clinic Note Referring provider: No referring provider defined for this encounter. PCP: Gavin Jo MD History of Present Illness Ashely Gross is a 50 y.o. female with a past medical history notable for CAD (CAC 67; severe stenosis of D1), afib, frequent PVCs, DM type II, HTN, MARA not on CPAP, obesity s/p gastric sleeve s/p revision (06/2025), anxiety, depression who presents for follow-up of CAD, afib. Patient presented to the emergency department in May 2024 with a number of complaints including shortness of breath. EKG demonstrated sinus rhythm with LAFB and poor R-wave progression in the precordial leads. Workup in the ED was largely unremarkable and the patient was discharged home. A referral to Cardiology was placed on discharge. After establishing with [facility], and echo, patchmonitor, and cardiac CT were ordered for her symptoms. Cardiac CT 11/2024 showed normal coronary anatomy with a calcium score of 67. There was minimal calcified plaque in the proximal LAD and proximalleft circumflex, but the diagonal had a severe appearing stenosis of predominantly noncalcified plaq ue. FFR CT did not model any hemodynamic significance. Echo demonstrated preserved LV systolic function and no valvular heart disease. She was started on aspirin and rosuvastatin for CAD. In January 2025 the heart monitor resulted which demonstrated sinus rhythm at an average rate of 78 bpm and a high burden of ventricular ectopy at 11%. There were no runs of VT longer than 3 beats in length. Patient was also found to have new onset atrial fibrillation with ventricular rate nearly 190 bpm. This episode lasted for about 2 hours and she was symptomatic. Aspirin was stopped in place of apixaban, and she was started on diltiazem for the PVCs since she had adverse effects with beta blockers in thepast. Ashely was last seen in Cardiology Clinic in January 2025 and at that time she was feeling well. Diltiazem was increased due to frequent PVCs. She underwent a revision of previously if gastrectomy in June 2025. Today, Ashely Gross and I discussed the following: History of Present Illness She underwent a duodenal switch with gastric sleeve on 07/19/2025, which was complicated by a bloodclot obstructing her bile duct, leading to liver failure and jaundice. The obstruction resolved spontaneously during a 5-day hospital stay. She reports no bleeding complications from the surgery. Shehas resumed Eliquis and reports no changes in her heart rate. She experienced one episode of atrialfibrillation during her hospital stay, which she suspects may be related to her hernia. She reportsno chest pain or breathing difficulties. She plans to resume physical activity, including walking 0.5 to 3 miles daily and engaging in [employer] exercises. She reports no palpitations or ankle swelling. Her smartwatch alerted her to an abnormal EKG once, approximately a year ago. She has been managing her blood pressure effectively and has resumed diltiazem post-surgery. She isalso on valsartan for blood pressure control. She has discontinued Crestor and requires a new prescription. She has lost 21 pounds since the surgery, including 7 pounds in the last 2 weeks. She was taken offJardiance and Mounjaro, and her highest recorded blood sugar level has been 114. She is currently on a regimen of vitamins three times daily for life due to her new gastrointestinal configuration. She had a hernia, developed celiac disease, and was experiencing severe acid reflux. During the surgery, it was noted that her liver was enlarged but not fatty, prompting a biopsy that revealed a normal and healthy liver. SOCIAL HISTORY Exercise: Walking anywhere from half a mile to three miles a day, plans to start doing ONOFFMIX (?) body workouts. The patient otherwise denies recent/worsening chest pain, shortness of breath, syncope, palpitations, orthopnea, PND, lower extremity edema, or bleeding issues. Tobacco Use: Never Alcohol Use: Denies Illicit/Recreational Drug Use: Denies Father - SD at 45, CABG, now . Medications (Reported as taking; list may include prescription updates of the current visit) Current Outpatient Medications Medication Instructions apixaban (ELIQUIS) 5 mg, Oral, 2 times daily Blood Glucose Monitoring Suppl (ONE TOUCH ULTRA 2) w/Device kit device kit one twice daily empagliflozin (JARDIANCE) 25 mg, Daily ergocalciferol 1.25 MG (03116 UT) capsule 1 capsule, Weekly fluticasone (Flonase) 50 MCG/ACT nasal spray 1 spray, Daily [employer] misc CHECK TWICE DAILY methocarbamol (ROBAXIN) 500 mg, 3 times daily Mounjaro 10 mg, Weekly multivitamin (Theragran) tablet 1 tablet, Daily Na Sulfate-K Sulfate-Mg Sulf 17.5-3.13-1.6 GM/177ML solution TAKE DIRECTED FOR 2 DAYS omeprazole (PRILOSEC) 20 mg, Daily rOPINIRole (REQUIP) 1 mg, Nightly rosuvastatin (CRESTOR) 5 mg, Oral, Daily Sodium Sulfate-Mag Sulfate-KCl (Sutab) 3279-845-357 MG tablet Take 24 tablets by oral route for 1 day. sucralfate (CARAFATE) 1 g, 4 times daily Triamcinolone Acetonide (Triamcinolone in Absorbase) 0.05 % ointment valsartan (DIOVAN) 160 mg, Oral, Daily venlafaxine XR (EFFEXOR-XR) 150 mg, Oral, Daily Past Medical Histories Past Medical History[1] Surgical History[2] Allergies Erythromycin, Azithromycin, Clarithromycin, and Clindamycin Family History Family History[3] Social History Social History[4] Physical Examination Visit Vitals BP 119/79 (BP Location: Right arm, Patient Position: Sitting) Pulse 61 Ht 1.638 m (5' 4.5 ) Wt 97.3 kg (214 lb 8.1 oz) SpO2 97% BMI 36.25 kg/m?? OB Status Hysterectomy Smoking Status Never BSA 2.1 m?? Blood pressure 119/79, pulse 61, height 1.638 m (5' 4.5 ), weight 97.3 kg (214 lb 8.1 oz), SpO2 97%. GENERAL: NAD HEENT: NCAT NECK: No appreciable JVD CARDIAC: Normal rate, regular rhythm, normal S1/S2, no m/r/g, 2+ radial pulses bilaterally PULM: CTAB without increased work of breathing ABD: Soft, NT, ND EXT: Warm and well perfused, no LE edema SKIN: No rashes or lesions NEURO: A&Ox4, moving all extremities spontaneously Pertinent Laboratory Information and Other Data Lab Results Component Value Date CREATININE 0.64 07/24/2025 CREATININE 0.70 07/23/2025 CREATININE 0.65 07/22/2025 EGFR 108.5 07/24/2025 BUN 20.9 (H) 07/24/2025 NA 138 07/24/2025 K 3.5 07/24/2025 CL 102 07/24/2025 CO2 28 06/13/2024 GLUCOSE 97 07/24/2025 CALCIUM 8.5 (L) 07/24/2025 AST 17 07/24/2025 ALT 51 (H) 07/24/2025 BILITOT 2.2 (H) 07/24/2025 ALKPHOS 107 (H) 06/13/2024 Lab Results Component Value Date WBC 8.9 08/06/2025 HGB 12.7 08/06/2025 HCT 39.7 08/06/2025 PLT 258 08/06/2025 Lab Results Component Value Date CHOL 161 02/05/2025 TRIG 57 02/05/2025 HDL 70 02/05/2025 LDLCALC 79 02/05/2025 LDLCALC 133.2 (H) 04/13/2022 LDLCALC 135.6 (H) 01/27/2022 TSH 0.13 (L) 02/05/2025 Lab Results Component Value Date HGBA1C 6.19 (H) 07/12/2025 Primary Study Review: No new cardiovascular imaging available for review since last appointment. Assessment and Plan Problem List Items Addressed This Visit None Visit Diagnoses Paroxysmal atrial fibrillation (CMS/HCC) - Primary Relevant Orders Echo, Adult Transthoracic Complete Follow Up Cardiology Coronary artery disease involving [place] coronary artery of [place] heart without angina pectoris Relevant Orders Echo, Adult Transthoracic Complete Follow Up Cardiology PVC (premature ventricular contraction) Relevant Orders Echo, Adult Transthoracic Complete Follow Up Cardiology Essential hypertension Diabetes mellitus type II, non insulin dependent Relevant Medications rosuvastatin (Crestor) 5 MG tablet Today Ashely is doing well and denies symptoms concerning for angina, heart failure, or arrhythmias. On exam heart rhythm is regular and she appears euvolemic. She has been taken off a number of medications in the setting of her recent bariatric surgery. We discussed that with expected weight losswalt likely will not need as much medication for management of metabolic disorders and blood pressure. I do think that she should remain on a statin regardless of cholesterol levels given the presenceof coronary artery disease with a significant stenosis in a diagonal artery. She will resume rosuvastatin 5 mg daily. We will wait to reassess lipids in 6 months at follow-up since she will likely continue to have weight loss and thus ongoing improvement in cholesterol. She is no longer on diltiazem which we had been using in part for PVC suppression. Will likely need to repeat the heart monitor at follow-up as well. Finally will plan on echo at follow-up for reassessment of LV systolic function the setting of frequent PVCs. # CAD -Continue rosuva 5 mg daily -No aspirin while on DOAC # Frequent PVCs / Bradycardia -Repeat echo in 1 year -Likely plan on heart monitor at next appt # HTN / MARA -Recommend a goal BP <130/80 mmHg -Provided education about hypertension and nonpharmacologic interventions to lower BP -Continue valsartan 160 mg daily Follow up: 6 months with echo I spent 20 minutes performing the following components of the encounter (on the day of the encounter): reviewing History, examining the patient, reviewing imaging and/or labs, Independently interpreting echocardiogram, ECG and/or other imaging results, ordering tests or procedures, counseling the patient and family/caregiver, communicating with other health critical care nurse specialist, care coordination, and entering clinical information in the EHR. Greater than 50% of the time spent on the encounter was face to face providing direct patient care, counseling for the patient/caregiver, and care coordination. Verbal consent was obtained to use ambient listening technology to assist in the documentation of the encounter: yes Brian Mendes MD Cardiovascular Medicine [1] Past Medical History: Diagnosis Date Abnormal intentional weight loss 08/31/22 Personal history of other diseases of the nervous system and sense organs History of post-traumatic headache Type 2 diabetes mellitus [2] Past Surgical History: Procedure Laterality Date BARIATRIC SURGERY 08/23/2022 gastric sleeve BREAST SURGERY N/A Breast Surgery Reduction Procedure Bilateral from [facility] CHOLECYSTECTOMY N/A Cholecystectomy from [facility] HYSTERECTOMY N/A Hysterectomy from [facility] [3] Family History Problem Relation Name Age of Onset Cardiac disorder Father Hypertension Father Migraines Mother Migraines Brother [4] Social History Tobacco Use Smoking status: Never Smokeless tobacco: Never Vaping Use Vaping status: Never Used Substance Use Topics Alcohol use: No Drug use: Never Comment: Drug use: No drug use documented in this encounter Plan of Treatment Upcoming Encounters Date Type Department Care Team (Late st Contact Info) Description 02/21/2026 11:00 AM EDT Appointment Medical Office Building Cardiac Diagnostic Testing Medical Office Building Echo Lab [address], [address] [place] [address] 02/21/2026 12:40 PM EDT Office Visit [facility] [place] [address], [address] [place] [phone] Brian Mendes MD [address] [place] [phone] Scheduled Orders Name Type Priority Associated Diagnoses Orde r Schedule Echo, Adult Transthoracic Complete Echocardiography Routine Paroxysmal atrial fibrillation (CMS/HCC) Coronary artery disease involving [place] coronary artery of [place] heart without angina pectoris PVC (premature ventricular contraction) Expected: 02/14/2026, Expires: 02/17/2027 Scheduled Referrals Name Type Priority Associated Diagnoses Orde r Schedule Follow Up Cardiology Outpatient Referral Routine Paroxysmal atrial fibrillation (CMS/HCC) Coronary artery disease involving [place] coronary artery of [place] heart without angina pectoris PVC (premature ventricular contraction) Expected: 02/14/2026, Expires: 02/14/2027 documented as of this encounter Visit Diagnoses Diagnosis Paroxysmal atrial fibrillation (CMS/HCC)- Primary Atrial fibrillation Coronary artery disease involving [place] coronary artery of [place] heart without angina pectoris PVC (premature ventricular contraction) Other premature beats Essential hypertension Unspecified essential hypertension Diabetes mellitus type II, non insulin dependent Type II or unspecified type diabetes mellitus without mention of complication, not stated as uncontrolled documented in this encounter Additional Health Concerns Assessment Noted Time PHQ-9 Depression Total Score: 0 08/16/20 12:45 PM EDT A fall risk assessment has been complete d for the patient 08/16/2025 12:45 PM EDT A Body Mass Index follow-up plan has been documented for the patient 08/16/2025 3:07 PM EDT documented as of this encounter Care Teams Wetlands Conservation Laborer Relationship Specialty Start Date End Date Gavin Jo MD [address] [place] [address] [address] [address] PCP - General 05/05/22 Randal Amaya APRN, [facility] [address] [place] [phone] Nurse Practitioner Psychiatry 03/01/25 documented as of this encounter
--- OUTSIDE RECORDS SUMMARY | 2025-09-02 11:30 | XMS_ITS | Encounter Summary ---
Author Organization [facility] Address [address] [place] [address] Care Team Providers Care Servicer Name Role Phone Gavin Jo MD Primary Care Provider [phone] Reason for Referral * MRI/CAT/PET Scan (Routine) - Closed Specialty Diagnoses / Procedures Referred By Contac t Referred To Contact Radiology Diagnoses LUQ pain Procedures CT Abdomen Pelvis With Contrast Sarah Martin APRN [address] [address] Phone: tel: fax: [facility] [address] [place] [address] Phone: tel: Referral ID Status Reason Start Date Expiration Date Visits Re quested Visits Authorized [id number] Closed 09/03/2025 12/03/2026 1 1 Encounter Details Date Type Department Care Team (Late st Contact Info) Description 09/02/2025 11:30 AM EST Office Visit [facility] BARIATRIC SURGERY [address] [address] Sarah Martin APRN [address] [id number] LUQ pain (Primary Dx); Diarrhea, unspecified type Social History Tobacco Use Types Packs/Day Years Used Date Smoking Tobacco: Never Passive Smoke Exposure: Never Smokeless Tobacco: Never Tobacco Cessation:Counseling Given: No Alcohol Use Standard Drinks/Week Comments Not Currently 0 (1 standard drink = 0.6 oz pur e alcohol) [facility] Utilities Answer Date Recorded In the [...] care, and heating? Not very hard 07/22/2025 [facility] - Occupational Stress [...] GED or equivalent No 07/22/2025 Preferred Language Mauritian 07/22/2025 PHQ-2 Answer Date Recorded Patient Health [...] Sign Reading Time Taken Comments Blood Pressure 110/80 09/02/2025 11:12 AM EST Pulse 66 09/02/2025 11:12 AM EST Temperature 36.2 C (97.1 F) 09/02/2025 11:12 AM EST Respiratory Rate 18 09/02/2025 11:12 AM EST Oxygen Saturation 98% 09/02/2025 11:12 AM EST Inhaled Oxygen Concentration - - Weight 93.2 kg (205 lb 6.4 oz) 09/02/2025 11:12 AM EST Height 163.8 cm (5' 4.5 ) 09/02/2025 11:12 AM ES T Body Mass Index 34.71 09/02/2025 11:12 AM EST documented in this encounter Progress Notes * Sarah Martin APRN - 09/02/2025 11:30 AM ESTAddended by: SARAH MARTIN on: 09/03/2025 09:00 AM Modules accepted: Orders * Sarah Martin APRN - 09/02/2025 11:30 AM EST [facility] Bariatric Surgery [address] [facility] [address] Patient Name: Ashely Gross : 1975 [...] (12.7) last total bili 07/24/25 (2.2). 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 No evidence of bowel obstruction. 2.Small volume free fluid in the pelvis, nonspecific. 3.Stable appearing solid pulmonary nodule in the superior segment right lower lobe measuring 1 cm. ------- 09/02/2025 Having generalized abdominal pain and nausea for the past week. Began having LUQ pain w/ watery diarrhea since yesterday. Reports fecal urgency, incontinence. Concerned she might have diverticulitis.Having dysphagia w/ certain foods. Happens w/ pork chops, grilled chicken. Feels like it is gettingstuck mid chest, will have to pace around the room to get it to go down, if not she has to vomit. Not taking any medications for these symptoms. Avoiding ASA/NSAIDs/steroids/tobacco/nicotine. Presurgery weight: 227 pounds. Today's weight is 93.2 kg (205 lb 6.4 oz) pounds, today's Body mass index is 34.71 kg/m??., and weight loss since surgery is 25 pounds. Past Medical History: Diagnosis Date Anxiety [...] BIOPSY LAPAROSCOPIC; Surgeon: Stewart Barriga MD; Location: [facility]; Service: [facility]; Laterality: N/A; SOFT TISSUE CYST EXCISION Right 1986 foot Outpatient Medications Marked as Taking for the 09/02/25 encounter (Office Visit) with Sarah Martin APRN Medication Sig Dispense Refill apixaban (ELIQUIS) 5 MG tablet tablet Take 1 tablet by mouth Every 12 (Twelve) Hours. Cholecalciferol 1.25 MG (00417 UT) tablet Take 1 tablet by mouth 1 (One) Time Per Week. 12 tablet 0 Copper Gluconate 2 MG tablet Take 8 mg by mouth Daily for 7 days, THEN 6 mg Daily for 7 days, THEN 4 mg Daily for 7 days, THEN 2 mg Daily for 69 days. 132 tablet 0 dilTIAZem CD (CARDIZEM CD) 240 MG 24 hr capsule Take 1 capsule by mouth Daily. nystatin (MYCOSTATIN) 451527 UNIT/GM cream Apply 1 Application topically to the appropriate area asdirected See Admin Instructions. Apply topically to the affected area twice daily ondansetron ODT (ZOFRAN-ODT) [address] 1 tablet on the tongue Every 4 (Four)Hours As Needed for Nausea. 10 tablet 0 valsartan (DIOVAN) 160 MG tablet Take 1 [...] History Social History Narrative Pt lives in [facility], [place], she is with 2 adult children. 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 BP 110/80 Pulse 66 Temp 97.1 ??F (36.2 ??C) (Temporal) Resp 18 Ht 163.8 cm (64.5 ) Wt 93.2 kg (205 lb 6.4 oz) SpO2 98% BMI 34.71 kg/m?? Physical Exam Constitutional: Appearance: She is well-developed. Cardiovascular: Rate and Rhythm: Normal rate. Pulmonary: Effort: Pulmonary effort is normal. Abdominal: General: There is no distension. Palpations: Abdomen is soft. There is no mass. Tenderness: There is abdominal tenderness (LUQ). Musculoskeletal: General: Normal range of motion. Neurological: Mental Status: She is alert. Psychiatric: Thought Content: Thought content normal. Judgment: Judgment normal. Assessment: 1 month s/p 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 Gross ICD-10-CM ICD-9-CM 1. LUQ pain R10.12 789.02 2. Diarrhea, unspecified type R19.7 787.91 BMI is >= 30 and <35. (Class 1 Obesity). The following options were offered after discussion;: see plan Plan: UGI ordered. Will discuss with Dr. Barriga. Stool studies declined at this time. Follow up w/ PCP re eval poss diverticulitis. Continue protein 125 +g/day. Continue vitamins. Continue PPI. Call w/ problems/concerns. Addendum: CT abd/pel w/ IV and PO (water-soluble) contrast, CBC and CMP ordered per Dr. Barriga. The patient was instructed to follow up pending further eval, sooner if needed. Sarah Martin APRN documented in this encounter Plan of Treatment Upcoming Encounters Date Type Department Care Team (Late st Contact Info) Description 10/11/2025 11:30 AM EST Office Visit [facility] BARIATRIC SURGERY [address] [place] [address] Lesia Mcmillan MD [address] [place] [address] 11/29/2025 8:30 AM EST Appointment [facility] [address] [place] [address] 12/13/2025 11:00 AM EST Office Visit [facility] PULMONARY & CRITICAL CARE MEDICINE [address] [place] [id number] Mu brown [place], [address] [place] [address] documented as of this encounter Results * CT Abdomen Pelvis With Contrast (09/13/2025 9:09 AM EST) Anatomical Region Laterality Modality Abdomen, Pelvis N/A Computed Tomogra phy 09/13/2025 9:19 AM EST Impressions 09/13/2025 9:50 AM EST Impression: No acute findings in the abdomen or pelvis. Stable chronic/ancillary findings as above. Electronically Signed: Joseph Leone MD 09/13/2025 9:50 AM EST Workstation ID: [id number] Narrative 09/13/2025 9:[address] ABDOMEN PELVIS W CONTRAST Date of Exam: 09/13/2025 8:56 AM EST Indication: abd.pain. Comparison: CT abdomen pelvis 08/06/2025, MRI abdomen 07/20/2025. CT abdomen pelvis 11/07/2013. Technique: Axial CT images were obtained of the abdomen and pelvis following the uneventful intravenous administration of iodinated contrast. Reconstructed coronal and sagittal images were also obtained. Automated exposure control and iterative construction methods were used. Findings: The visualized lung bases appear clear without focal airspace consolidation. No pleural or pericardial effusion. No evidence of focal liver lesion. Mild intrahepatic biliary ductal dilatation in the left hepatic lobe, unchanged prior MRI. Unchanged mildly prominent common bile duct in the setting of prior cholecystectomy. No findings of acute pancreatitis. Spleen is normal in size. No adrenal nodule. Kidneys are symmetric in size and enhancement without hydronephrosis. 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 Unchanged small/subcentimeter left lower pole renal cyst. Urinary bladder is unremarkable. Hysterectomy. Colonic diverticulosis without evidence of acute diverticulitis. Normal appendix. No bowel obstruction. Gastrectomy and duodenal switch/biliopancreatic diversion. Orally administered contrast is present. No evidence of bowel obstruction. No extraluminal contrast. No free air or free fluid. No pathologically enlarged lymph nodes. No abdominal aortic aneurysm. No acute body wall abnormality. Multilevel spondylosis. No acute or suspicious osseous abnormality. Procedure Note Joseph Leone MD - 09/13/2025 CT ABDOMEN PELVIS W CONTRAST Date of Exam: 09/13/2025 8:56 AM EST Indication: abd.pain. Comparison: CT abdomen pelvis 08/06/2025, MRI abdomen 07/20/2025. CTabdomen pelvis 11/07/2013. Technique: Axial CT images were obtained of the abdomen and pelvisfollowing the uneventful intravenous administration of iodinated contrast.Reconstructed coronal and sagittal images were also obtained. Automatedexposure control and iterative construction methods were used. Findings: The visualized lung bases appear clear without focal airspaceconsolidation. No pleural or pericardial effusion. No evidence of focal liver lesion. Mild intrahepatic biliary ductaldilatation in the left hepatic lobe, unchanged prior MRI. Unchanged mildlyprominent common bile duct in the setting of prior cholecystectomy. Nofindings of acute pancreatitis. Spleen is normal in size. No adrenal nodule. Kidneys are symmetric in size and enhancement withouthydronephrosis. Two right lower pole angiomyolipomas, larger measuring 1.1cm, minimally changed dating back to 2013. Unchanged small/subcentimeterleft lower pole renal cyst. Urinary bladder is unremarkable. Hysterectomy. Colonic diverticulosis without evidence of acute diverticulitis. Normalappendix. No bowel obstruction. Gastrectomy and duodenalswitch/biliopancreatic diversion. Orally administered contrast is present.No evidence of bowel obstruction. No extraluminal contrast. No free air or free fluid. No pathologically enlarged lymph nodes. No abdominal aortic aneurysm. Noacute body wall abnormality. Multilevel spondylosis. No acute orsuspicious osseous abnormality. IMPRESSION: Impression: No acute findings in the abdomen or pelvis. Stable chronic/ancillary findings as above. Electronically Signed: Joseph Leone MD 09/13/2025 9:50 AM EST Workstation ID: [id number] Sarah Martin LEAD SOFTWARE TESTER IMG CT ORDERABLES Final Result * (ABNORMAL) Comprehensive Metabolic Panel (09/07/2025 10:21 AM EST) Glucose 117(H) 65 - 99 mg/dL 09/07/2025 8:57 PM [facility] BUN 12.0 6.0 - 20.0 mg/dL 09/07/2025 8:57 PM [facility] Creatinine 0.49(L) 0.57 - 1.00 mg/dL 09/07/2025 8:57 PM [facility] Sodium 142 136 - 145 mmol/L 09/07/2025 8:57 PM [facility] Potassium 3.3(L) 3.5 - 5.2 mmol/L 09/07/2025 8:57 PM [facility] Chloride 106 98 - 107 mmol/L 09/07/2025 8:57 PM [facility] CO2 23.2 22.0 - 29.0 mmol/L 09/07/2025 8:57 PM [facility] Calcium 9.2 8.6 - 10.5 mg/dL 09/07/2025 8:57 PM [facility] Total Protein 6.9 6.0 - 8.5 g/dL 09/07/2025 8:57 PM [facility] Albumin 3.8 3.5 - 5.2 g/dL 09/07/2025 8:57 PM [facility] ALT (SGPT) 32 1 - 33 U/L 09/07/2025 8:57 PM [facility] AST (SGOT) 31 1 - 32 U/L 09/07/2025 8:57 PM [facility] Alkaline Phosphatase 80 39 - 117 U/L 09/07/2025 8:57 PM [facility] Total Bilirubin 0.5 0.0 - 1.2 mg/dL 09/07/2025 8:57 PM [facility] Globulin 3.1 gm/dL 09/07/2025 8:57 PM [facility] A/G Ratio 1.2 g/dL 09/07/2025 8:57 PM EST [facility] BUN/Creatinine Ratio 24.5 7.0 - 25.0 09/07/2025 8:57 PM [facility] Anion Gap 12.8 5.0 - 15.0 mmol/L 09/07/2025 8:57 PM [facility] eGFR 115.7 >60.0 mL/min/1.7 3 09/07/2025 8:57 PM [facility] Blood Venipuncture / Unknown 09/07/2025 10:21 AM EST 09/07/2025 10:21 AM EST [facility] - 09/07/2025 8:57 PM EST GFR Categories in Chronic Kidney Disease (CKD) GFR Category GFR (mL/min/1.73) Interpretation G1 90 or greater Normal or high (1) G2 60-89 Mild decrease (1) G3a 45-59 Mild to moderate decrease G3b 30-44 Moderate to severe decrease G4 15-29 Severe decrease G5 14 or less Kidney failure (1)In the absence of evidence of kidney disease, neither GFR category G1 or G2 fulfill the criteria for CKD. eGFR calculation 2020 CKD-EPI creatinine equation, which does not include race as a factor Sarah Martin APRN LAB BLOOD ORDERABLES Final Res ult [facility]
[address] [place] [address], documented in this encounter Visit Diagnoses Diagnosis LUQ pain- Primary Abdominal pain, left upper quadrant Diarrhea, unspecified type LUQ pain Abdominal pain, left upper quadrant documented in this encounter Care Teams Servicer Relationship Specialty Start Date End Date Gavin Jo MD [address] [place] [address] PCP - General Internal Medicine 02/21/23 documented as of this encounter
--- OUTSIDE RECORDS SUMMARY | 2025-09-07 10:20 | XMS_ITS | Encounter Summary ---
Author Organization [facility] Address [address] [place] [address] Care Team Providers Care Painter Set Name Role Phone Gavin Jo MD Primary Care Provider [phone] Encounter Details Date Type Department Care Team (Late st Contact Info) Description 09/07/2025 10:20 AM EST Lab [facility] [address] [place] [address] LUQ pain Social History Tobacco Use Types Packs/Day Years Used Date Smoking Tobacco: Never Passive Smoke Exposure: Never Smokeless Tobacco: Never Alcohol Use Standard Drinks/Week Comments Not Currently 0 (1 standard drink = 0.6 oz pur e alcohol) [facility] Utilities Answer Date Recorded In the past 12 months has e electric, gas, oil, or water company [...] care, and heating? Not very hard 07/22/2025 [facility] Occupat ional Health - Occupational Stress [...] GED or equivalent No 07/22/2025 Preferred Language South Korean 07/22/2025 PHQ-2 Answer Date Recorded Patient Health Questionnaire-2 Score 0 07/22/2025 Comments No Sex and Gender Information Value Date Recorded Sex Assigned at Female 04/17/2025 11:38 AM EDT Legal Sex Female 1:04 PM EDT Gender Identity Not on file Sexual Orientation Straight 04/17/2025 11 :38 AM EDT documented as of this encounter Plan of Treatment Upcoming Encounters Date Type Department Care Team (Late st Contact Info) Description 10/11/2025 11:30 AM EST Office Visit [facility] BARIATRIC SURGERY [address] [place] [address] Lesia Mcmillan MD [address] [place] [address] 11/29/2025 8:30 AM EST Appointment [facility] [address] [address] 12/13/2025 11:00 AM EST Office Visit [facility] PULMONARY & CRITICAL CARE MEDICINE [address] [place] [address] Mu Castillo, [address] [place] [address] documented as of this encounter Procedures Procedure Name Priority Date/Time Associated Diagnosis Comments CBC WITH AUTO DIFFERENTIAL Routine 09/07/2025 10:21 AM EST LUQ pain CBC AND DIFFERENTIAL Routine 09/07/2025 10:21 AM EST LUQ pain COMPREHENSIVE METABOLIC PANEL Routine 09/07/2025 10:21 AM EST LUQ pain documented in this encounter Results * CBC Auto Differential (09/07/2025 10:21 AM EST) WBC 7.06 3.40 - 10.80 10*3/mm3 09/07/2025 8:36 PM [facility] RBC 4.43 3.77 - 5.28 10*6/mm3 09/07/2025 8:36 PM [facility] Hemoglobin 13.1 12.0 - 15.9 g/dL 09/07/2025 8:36 PM [facility] Hematocrit 40.6 34.0 - 46.6 % 09/07/2025 8:36 PM [facility] MCV 91.6 79.0 - 97.0 fL 09/07/2025 8:36 PM [facility] MCH 29.6 26.6 - 33.0 pg 09/07/2025 8:36 PM [facility] MCHC 32.3 31.5 - 35.7 g/dL 09/07/2025 8:36 PM [facility] RDW 14.0 12.3 - 15.4 % 09/07/2025 8:36 PM [facility] RDW-SD 47.5 37.0 - 54.0 fl 09/07/2025 8:36 PM [facility] MPV 11.2 6.0 - 12.0 fL 09/07/2025 8:36 PM [facility] Platelets 198 140 - 450 10*3/mm3 09/07/2025 8:36 PM [facility] Neutrophil % 58.8 42.7 - 76.0 % 09/07/2025 8:36 PM [facility] Lymphocyte % 27.5 19.6 - 45.3 % 09/07/2025 8:36 PM [facility] Monocyte % 9.8 5.0 - 12.0 % 09/07/2025 8:36 PM [facility] Eosinophil % 3.1 0.3 - 6.2 % 09/07/2025 8:36 PM [facility] Basophil % 0.4 0.0 - 1.5 % 09/07/2025 8:36 PM [facility] Immature Grans % 0.4 0.0 - 0.5 % 09/07/2025 8:36 PM EST [facility] Neutrophils, Absolute 4.15 1.70 - 7.00 10*3/mm3 09/07/2025 8:36 PM EST [facility] Lymphocytes, Absolute 1.94 0.70 - 3.10 10*3/mm3 09/07/2025 8:36 PM EST [facility] Monocytes, Absolute 0.69 0.10 - 0.90 10*3/mm3 09/07/2025 8:36 PM EST [facility] Eosinophils, Absolute 0.22 0.00 - 0.40 10*3/mm3 09/07/2025 8:36 PM [facility] Basophils, Absolute 0.03 0.00 - 0.20 10*3/mm3 09/07/2025 8:36 PM [facility] Immature Grans, Absolute 0.03 0.00 - 0.05 10*3/mm3 09/07/2025 8:36 PM [facility] nRBC 0.0 0.0 - 0.2 /100 WBC 09/07/2025 8:36 PM [facility] Blood Venipuncture / Unknown 09/07/2025 10:21 AM EST 09/07/2025 10:21 AM EST us Angelika Pierre APRN LAB BLOOD ORDERABLES Final Res ult [facility]
[address] [place] [address], * (ABNORMAL) Comprehensive Metabolic Panel (09/07/2025 10:21 AM EST) Glucose 117(H) 65 - 99 mg/dL 09/07/2025 8:57 PM EST [facility] BUN 12.0 6.0 - 20.0 mg/dL 09/07/2025 8:57 PM EST [facility] Creatinine 0.49(L) 0.57 - 1.00 mg/dL 09/07/2025 8:57 PM [facility] Sodium 142 136 - 145 mmol/L 09/07/2025 8:57 PM [facility] Potassium 3.3(L) 3.5 - 5.2 mmol/L 09/07/2025 8:57 PM [facility] Chloride 106 98 - 107 mmol/L 09/07/2025 8:57 PM [facility] CO2 23.2 22.0 - 29.0 mmol/L 09/07/2025 8:57 PM [facility] Calcium 9.2 8.6 - 10.5 mg/dL 09/07/2025 8:57 PM [facility] Total Protein 6.9 6.0 - 8.5 g/dL 09/07/2025 8:57 PM [facility] Albumin 3.8 3.5 - 5.2 g/dL 09/07/2025 8:57 PM [facility] ALT (SGPT) 32 1 - 33 U/L 09/07/2025 8:57 PM [facility] AST (SGOT) 31 1 - 32 U/L 09/07/2025 8:57 PM [facility] Alkaline Phosphatase 80 39 - 117 U/L 09/07/2025 8:57 PM [facility] Total Bilirubin 0.5 0.0 - 1.2 mg/dL 09/07/2025 8:57 PM [facility] Globulin 3.1 gm/dL 09/07/2025 8:57 PM [facility] A/G Ratio 1.2 g/dL 09/07/2025 8:57 PM [facility] BUN/Creatinine Ratio 24.5 7.0 - 25.0 09/07/2025 8:57 PM [facility] Anion Gap 12.8 5.0 - 15.0 mmol/L 09/07/2025 8:57 PM [facility] eGFR 115.7 >60.0 mL/min/1.7 3 09/07/2025 8:57 PM EST [facility] Blood Venipuncture / Unknown 09/07/2025 10:21 AM EST 09/07/2025 10:21 AM EST Narrative [facility] - 09/07/2025 8:57 PM EST GFR [...] does not include race as a factor us Angelika Pierre NURSE LIAISON LAB BLOOD ORDERABLES Final Res ult [facility]
[address] [place] [address], documented in this encounter Visit Diagnoses Diagnosis LUQ pain Abdominal pain, left upper quadrant documented in this encounter Care Teams Painter Set Relationship Specialty Start Date End Date Gavin Jo MD [address] [place] [address] PCP - General Internal Medicine 02/21/23 documented as of this encounter
--- OUTSIDE RECORDS SUMMARY | 2025-09-13 08:11 | XMS_ITS | Encounter Summary ---
Author Organization [facility] Address [address] [place] [address] Care Team Providers Care Corporate Intern Name Role Phone Gavin Jo MD Primary Care Provider [phone] Reason for Referral * MRI/CAT/PET Scan (Routine) - Closed Specialty Diagnoses / Procedures Referred By Contac t Referred To Contact Radiology Diagnoses LUQ pain Procedures CT Abdomen Pelvis With Contrast Angelika Pierre APRN [address] [place] [address] Phone: tel: fax: [address] [address] Phone: tel: Referral ID Status Reason Start Date Expiration Date Visits Re quested Visits Authorized [id number] Closed 09/03/2025 12/03/2026 1 1 Reason for Visit * MRI/CAT/PET Scan (Routine) - Closed Specialty Diagnoses / Procedures Referred By Contac t Referred To Contact Radiology Diagnoses LUQ pain Procedures CT Abdomen Pelvis With Contrast Angelika Pierre APRN [address] [facility] [employer] [address] [address] Phone: tel: fax: [address] [address] Phone: tel: Referral ID Status Reason Start Date Expiration Date Visits Re quested Visits Authorized [id number] Closed 09/03/2025 12/03/2026 1 1 Encounter Details Date Type Department Care Team (Latest Contact Info) Description 09/13/2025 8:11 AM EST - 09/13/2025 11:59 PM [facility] Hospital Encounter [facility] [address] [place] [address] Angelika Pierre, SALES FORCE DEVELOPER [address] [place] [address] LUQ pain Discharge Disposition: Home or Self Care Social History Tobacco Use Types Packs/Day Years Used Date Smoking Tobacco: Never Passive Smoke Exposure: Never Smokeless Tobacco: Never Alcohol Use Standard Drinks/Week Comments Not Currently 0 (1 standard drink = 0.6 oz pur e alcohol) [facility] Utilities Answer Date Recorded In the past 12 months has [employer] electric, gas, oil, or water company threatened [...] care, and heating? Not very hard 07/22/2025 [facility] [place] of Occupat ional Health - Occupational Stress [...] GED or equivalent No 07/22/2025 Preferred Language Brazilian 07/22/2025 PHQ-2 Answer Date Recorded Patient Health [...] mouth Every 12 (Twelve) Hours. 01/25/2025 01/26/20 26 Cholecalciferol 1.25 MG (37970 UT) tabletIndications:V itamin D deficiency Take 1 tablet by mouth 1 (One) Time Per Week. 12 tablet 08/28/2025 Copper Gluconate 2 MG tabletIndications:C opper deficiency Take 8 mg by mouth Daily for 7 days, THEN 6 mg Daily for 7 days, THEN 4 mg Daily for 7 days, THEN 2 mg Daily for 69 days. 132 tablet 08/28/2025 11/26/19 26 dilTIAZem CD (CARDIZEM CD) 240 MG 24 hr capsule Take 1 capsule by mouth Daily. 01/25/2025 01/26/20 26 nystatin (MYCOSTATIN) 780584 UNIT/GM cream Apply 1 Application topically to [...] 1 tablet by mouth Daily. 01/11/2025 01/12/20 26 venlafaxine XR (EFFEXOR-XR) 150 MG 24 hr capsule Take 1 capsule by mouth Daily. 02/26/2024 documented as of this encounter Plan of Treatment Upcoming Encounters Date Type Department Care Team (Late st Contact Info) Description 10/11/2025 11:30 AM EST Office Visit [facility] BARIATRIC SURGERY [address] [place] [address] Lesia Mcmillan MD [address] [place] [address] 11/29/2025 8:30 AM EST Appointment [facility] [address] [place] [address] 12/13/2025 11:00 AM EST Office Visit [facility] PULMONARY & CRITICAL CARE MEDICINE [address] [place] [address] Mu brown, DO [address] [place] [address] documented as of this encounter Procedures Procedure Name Priority Date/Time Associated Diagnosis Comments CT ABDOMEN PELVIS W CONTRAST STAT 09/13/2025 9:09 AM EST LUQ pain documented in this encounter Results * CT Abdomen Pelvis With Contrast (09/13/2025 9:09 AM EST) Anatomical Region Laterality Modality Abdomen, Pelvis N/A Computed Tomogra phy 09/13/2025 9:19 AM EST Impressions 09/13/2025 9:50 AM EST Impression: No acute findings in the abdomen or pelvis. Stable chronic/ancillary findings as above. Electronically Signed: Joseph Leone MD 09/13/2025 9:50 AM EST Workstation ID: [id number] Narrative 09/13/2025 9:[address] ABDOMEN [...] MD 09/13/2025 9:50 AM EST Workstation ID: [id number] Angelika Pierre SALES FORCE DEVELOPER IM CT ORDERABLES Final Result documented in this encounter Visit Diagnoses Diagnosis LUQ pain Abdominal pain, left upper quadrant documented in this encounter Administered Medications Inactive Administered Medications - up to 3 most recent administrations Medication Order MAR Action Action Date Dose Rate Site barium (READI-CAT 2) suspension 450 mL 450 mL, Oral, Once in Imaging, On Tue09/13/25 at 0918, For 1 dose, ([facility]) Shake well before administration. Given 09/13/2025 9:16 AM EST 450 mL iopamidol (ISOVUE-300) 61 % injection 85 mL 85 mL, Intravenous, Once in Imaging, On Tue09/13/25 at 0918, For 1 dose Given 09/13/2025 9:16 AM EST 85 mL documented in this encounter Care Teams Corporate Intern Relationship Specialty Start Date End Date Gavin Jo MD [address] [place] [address] PCP - General Internal Medicine 02/21/23 documented as of this encounter
--- OUTSIDE RECORDS SUMMARY | 2025-09-13 10:30 | XMS_ITS | Encounter Summary ---
Author Organization [facility] Address [address] [place] [address] Care Team Providers Care Floor Covering Printer Name Role Phone Gavin Jo MD Primary Care Provider [phone] Encounter Details Date Type Department Care Team (Late st Contact Info) Description 09/13/2025 10:30 AM EST Office Visit [facility] BARIATRIC SURGERY [address] [place] [address] [employer] BLANKET BINDER [address] [place] [address] Obesity, Class I, BMI 30-34.9 (Primary Dx); S/P laparoscopic sleeve gastrectomy; Copper deficiency Social History Tobacco Use Types Packs/Day Years Used Date Smoking Tobacco: Never Passive Smoke Exposure: Never Smokeless Tobacco: Never Tobacco Cessation:Counseling Given: No Alcohol Use Standard Drinks/Week Comments Not Currently 0 (1 standard drink = 0.6 oz pur e alcohol) [facility] Utilities Answer Date Recorded In the past 12 months has [employer], gas, oil, or water [employer] threatened to shut off services in your [...] care, and heating? Not very hard 07/22/2025 [facility] [place] of Occupat ional Health - Occupational Stress [...] GED or equivalent No 07/22/2025 Preferred Language Belizean 07/22/2025 PHQ-2 Answer Date Recorded Patient Health [...] Sign Reading Time Taken Comments Blood Pressure 122/78 09/13/2025 10:14 AM EST Pulse 68 09/13/2025 10:14 AM EST Temperature 36.3 C (97.3 F) 09/13/2025 10:14 AM EST Respiratory Rate 18 09/13/2025 10:14 AM EST Oxygen Saturation 98% 09/13/2025 10:14 AM EST Inhaled Oxygen Concentration - - Weight 92.3 kg (203 lb 6.4 oz) 09/13/2025 10:14 AM EST Height 163.8 cm (5' 4.5 ) 09/13/2025 10:14 AM ES T Body Mass Index 34.37 09/13/2025 10:14 AM EST documented in this encounter Progress Notes * Theron Springer APRN - 09/13/2025 10:30 AM EST [facility] Bariatric Surgery [address] [facility] [address] Patient Name: Ashely Gross : 1975 Date of Visit: 09/13/2025 Reason for Visit: 2 month post op HPI: Ashely Gross is [...] any medications for these symptoms. Avoiding ASA/NSAIDs/steroids/tobacco/nicotine. --Update 09/13/2025 Doing well, +1 lbs since last office visit. Acute abdominal symptoms are resolved. Reports some dysphagia symptoms. Described as pain/pressure in her sternum region. Denies regurgitation. No white frothy salvia. CT Abd/Pelvis IV/PO contrast at [facility] 09/13/2025 IMPRESSION: Impression: No acute findings in the abdomen or pelvis. Denies reflux, nausea, vomiting, abdominal pain, and diarrhea. On Omeprazole (OTC) and Eliquis (A-Fib). Multiple lose stools a day, 2-4x. Having some malodorous flatulence. Otherwise, no outstanding issues/concerns. Tolerating diet progression. Getting 100 + g prot/day. Continuing on recommended vitamins. Bariatric labs on 08/16/2025-low prealbumin (16), low copper + vitamin D, borderline vitamin K deficiency. Awaiting Copper pickup from the pharmacy, had to be ordered. However, started vitamin replacement therapy. Avoiding ASA/NSAIDs and Steroids. Ambulating frequently, walking, no structured exercise at this time. Presurgery weight: 227 pounds. Today's weight is 92.3 kg (203 lb 6.4 oz) pounds, today's Body mass index is 34.37 kg/m??., and weight loss since surgery is 24 pounds. Past Medical History: Diagnosis Date Anxiety [...] BIOPSY LAPAROSCOPIC; Surgeon: Stewart Barriga MD; Location: [facility]; [facility]; Laterality: N/A; SOFT TISSUE CYST EXCISION Right 1986 foot Outpatient Medications Marked as Taking for the 09/13/25 encounter (Office Visit) with Theron Springer APRN Medication Sig Dispense Refill apixaban (ELIQUIS) 5 MG tablet tablet Take 1 tablet by mouth Every 12 (Twelve) Hours. Cholecalciferol 1.25 MG (99652 UT) tablet Take 1 tablet by mouth [...] 1 capsule by mouth Daily. nystatin (MYCOSTATIN) 921588 UNIT/GM cream Apply 1 Application topically to [...] History Social History Narrative Pt lives in [facility], she is with 2 adult children. 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 BP 122/78 Pulse 68 Temp 97.3 ??F (36.3 ??C) (Temporal) Resp 18 Ht 163.8 cm (64.5 ) Wt 92.3 kg (203 lb 6.4 oz) SpO2 98% BMI 34.37 kg/m?? Physical Exam Vitals reviewed. Cardiovascular: Rate and Rhythm: Normal rate. Pulmonary: Effort: Pulmonary effort is normal. Musculoskeletal: General: Normal range of motion. Neurological: Mental Status: She is alert and oriented to person, place, and time. Psychiatric: Behavior: Behavior normal. Assessment: 2 month s/p 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 Gross ICD-10-CM ICD-9-CM 1. Obesity, Class I, BMI 30-34.9 E66.811 278.00 2. S/P laparoscopic sleeve gastrectomy Z98.84 V45.86 3. Copper deficiency E61.0 275.1 BMI is >= 30 and <35. (Class 1 Obesity). The following options were offered after discussion;: see plan Plan: Doing well. Patient met with technologist infectious disease prior to medical evaluation. Established a caloric + macro goals. Continue to monitor dysphagia symptoms with smaller/slower bites. At this time, patient did not feel a need to investigate further. A sample of Devrom was provided in office for malodorousflatulence. Continue protein 125 +g/day. Continue vitamins. Continue PPI. Call w/ problems/concerns. The patient was instructed to follow up in 1 month, sooner if needed. Theron Springer APRN documented in this encounter Plan of Treatment Upcoming Encounters Date Type Department Care Team (Late st Contact Info) Description 10/11/2025 11:30 AM EST Office Visit [facility] BARIATRIC SURGERY [address] [facility] [address] [place] [address] Lesia Mcmillan MD [address] [place] [address] 11/29/2025 8:30 AM EST Appointment [facility] [address] [address] 12/13/2025 11:00 AM EST Office Visit [facility] PULMONARY & CRITICAL CARE MEDICINE [address] [place] [address] Mu Castillo, DO [address] [place] [address] documented as of this encounter Visit Diagnoses Diagnosis Obesity, Class I, BMI 30-34.9- Primary S/P laparoscopic sleeve gastrectomy Copper deficiency Disorders of copper metabolism documented in this encounter Care Teams Floor Covering Printer Relationship Specialty Start Date End Date Gavin Jo MD [address] [place] [address] PCP - General Internal Medicine 02/21/23 documented as of this encounter
--- OUTSIDE RECORDS SUMMARY | 2025-09-24 08:15 | XMS_ITS | Encounter Summary ---
Author Organization Healthcare Address [address] [place] [address] Care Team Providers Care Price Lister Name Role Phone Maria Alejandra Gastelum APRN Primary Care Provider [phone] Gavin Jo MD Primary Care Provider [phone] Randal Amaya APRN, DNP Unavailable [phone] Encounter Details Date Type Department Care Team ([facility] Contact Info) Description 05/03/2022 Outside Procedure External Location [address] [place] [address] Provider, [facility] Social History Tobacco Use Types Packs/Day Years Used Date Smoking Tobacco: Never Smokeless Tobacco: Never Alcohol Use Standard Drinks/Week Comments No 0 (1 standard drink = 0.6 oz pur e alcohol) PHQ-2 Answer Date Recorded Patient Health Questionnaire-2 Score 0 07/02/2021 Comments Unknown Sex and Gender Information Value Date Recorded Sex Assigned at Female 06/13/2024 1:43 PM EDT Legal Sex Female 8:48 PM EDT Gender Identity Not on file Sexual Orientation Not on file COVID-19 Exposure Response Date Recorded In the last 10 days, have yo u been in contact with someone who was confirmed or suspected to have Coronavirus/COVID-19? No / Unsure 05/05/2022 11:56 AM EDT documented as of this encounter Plan of Treatment Upcoming Encounters Date Type Department Care Team (Late Contact Info) Description 02/21/2026 11:00 AM EDT Appointment Medical Office Building Cardiac Diagnostic Testing Medical Office Building Echo Lab [address], [address] [place] [address] 02/21/2026 12:40 PM EDT Office Visit [facility] [address], [address] [place] [address] Brian Mendes MD [address] [place] [address] documented as of this encounter Procedures Procedure Name Priority Date/Time Associated Diagnosis Comments XR CHEST 1 VIEW 05/03/2022 12:23 AM EDT documented in this encounter Results * XR Chest 1 View (05/03/2022 12:23 AM EDT) Anatomical Region Laterality Modality Chest Radiographic Olya ging 05/03/2022 12:2 3 AM EDT Narrative 05/03/2022 8:30 [place] [address] Name: ASHELY GOMEZ Exam Date: 05/03/2022 : 1975 Age 47 Gender: F Physician: CYNTHIA REDDY Facility: [facility] Facility HSV: Outpatient Exam: CHEST PORTABLE CHEST, 1 view HISTORY: Chest pain COMPARISON: November 12, 2020. FINDINGS: Electrodes overlie the chest. The lungs are clear. There is no evidence of effusion. The mediastinum has a normal appearance. The cardiac silhouette is unremarkable. No acute osseous changes. IMPRESSION: No acute cardiopulmonary process. Continued follow-up recommended. Dictated By: Alpesh Shannon Transcribed By: Alpesh Shannon Transcribed On: 05/03/2022 8:18 AM Electronically signed by: Alpesh Shannon 05/03/2022 Thank you for referring ASHELY GOMEZ to [facility]. Legally authenticated by POPE ALPESH Wiggins 2022-05-03 08:18:17 Procedure Note Provider, [facility] - 05/03/2022 [place] [address] Name: ASHELY GOMEZ Exam Date: 05/03/2022 : 1975 Age 47 Gender: F Physician: CYNTHIA REDDY Facility: [facility] Facility HSV: Outpatient Exam: CHEST PORTABLE CHEST, 1 view HISTORY: Chest pain COMPARISON: November 12, 2020. FINDINGS: Electrodes overlie the chest. The lungs are clear. There is no evidence of effusion. The mediastinum has a normal appearance.The cardiac silhouette is unremarkable. No acute osseous changes. IMPRESSION: No acute cardiopulmonary process. Continued follow-up recommended. Dictated By: Alpesh Shannon Transcribed By: Alpesh Shannon Transcribed On: 05/03/2022 8:18 AM Electronically signed by: Alpesh Shannon 05/03/2022 Thank you for referring ASHELY GOMEZ to [facility]. Legally authenticated by POPE ALPESH Wiggins 2022-05-03 08:18:17 Generic [place] Provider IMG XR PROCEDURES Fi nal Result documented in this encounter Visit Diagnoses Not on filedocumented in this encounter Additional Health Concerns Infection Onset Date Last Indicated Resolved Time COVID-19 Rule-Out 06/13/2024 06/13/2024 06/13/2024 3:26 PM EDT Assessment Noted Time A fall risk assessment has been complete d for the patient 07/02/2021 11:05 AM EDT documented as of this encounter Care Teams Price Lister Relationship Specialty Start Date End Date Maria Alejandra Gastelum APRN [address] [place] [address] PCP - General 03/06/21 05/04/22 Gavin Jo MD [address] [address] PCP - General 05/05/22 Randal Amaya APRN, REYES [address] [place] [address] Nurse Practitioner Psychiatry 03/01/25 documented as of this encounter
--- OUTSIDE RECORDS SUMMARY | 2025-09-24 08:15 | XMS_ITS | Encounter Summary ---
Author Organization [facility] Address [address] [place] [address] Care Team Providers Care Children'S Program Coordinator Name Role Phone Gavin Jo MD Primary Care Provider [phone] Encounter Details Date Type Department Care Team (Late st Contact Info) Description 11/01/2013 Conversion Encounter [facility] HISTORICAL CONV [address] [place] [address] Interface, See Report Social History Tobacco Use Types Packs/Day Years Used Date Smoking Tobacco: Never Assessed Comments Unknown Sex and Gender Information Value Date Recorded Sex Assigned at Female 04/17/2025 11:38 AM EDT Legal Sex Female 1:04 PM EDT Gender Identity Not on file Sexual Orientation Straight 04/17/2025 11 :38 AM EDT documented as of this encounter Progress Notes * Interface, See Report - 11/01/2013 12:00 AM EST DENTAL MANAGER-Oncology Services [address] [place], [place] [address] Patient: ASHELY GOMEZ MR #: [id number] : 1975 Date of Visit: 11/01 Referring Physician: Rosemary Nelson Dictated By: Mary Ann Castro MD Diagnosis: AUB FIBROID OBESITY PELVIC PAIN Allergies: MYCINS- RASH AND VOMITING; History of present illness: POSTOP LAVH HAYLEE SALPINGECTOMY LEFT OOPHERECTOMY, D&C 10-11-13 . BLURRED VISION, BUT IS DUE FOR HER EYE EXAM. BLOOD PRESSURE IS HIGH TODAY, BUT HAS NOT BEEN TAKING BLOOD PRESSURE MEDICINE. Past medical history: Medical: OBESITY; HTN; H/O FIBROIDS Surgical: LAVH HAYLEE SALPINGECTOMY, LEFT OOPHERECTOMY D&C; C/S; LPS MAR[place]UY; BREAST REDUCTION; LEFTFOOT Health maintenance: Mammogram: 2007 Colonoscopy: NEVER Pap smear: -2012 Tumor Marker: CT Scan: BMD: NEVER Ultrasound: Review of systems: Constitutional: + OBESITY. + FATIGUE. No change in weight Psychiatric: No history of anxiety, depression, bipolar disorder, or insomnia Respiratory: No shortness of breath, cough, asthma, wheezing Cardiovascular: + HTN. No angina, orthopnea, edema, murmur, hyperlipidemia Gastrointestinal: No constipation or diarrhea, no reflux, nausea, or vomiting Genitourinary: No dysuria, hematuria, urgency, or frequency Neurologic: No numbness, weakness, syncope, seizures, or headaches Gynecologic: + H/O FIBROIDS. + H/O AUB. No vaginal discharge, pelvic pain, of h/o abnml pap smears LMP: P: 2 Vag Deliveries: 1 C-sec: 1 Misc: 1 Additional notes: + GLASSES. + ARTHRITIS; + BLURRED VISION Medications: Medication Reconciliation for the patient has been reviewed in the EMR. Physical exam: Constitutional: Weight 245 Height 65 BP 132/100 Pulse Temp Neurological/Psychiatric: HEENT: Neck: Respiratory: Cardiovascular: Breasts: Gastrointestinal: Incisions c/d/i Lymphatic: Extremities: Gynecologic: External Genitalia: Vagina: Cervix: Uterus: Ovaries: Parametria: Smooth. Rectovaginal: Hemoccult: Procedure note: Assessment: 38 yo s/p LAVY, bilateral salpingectomy, left oophorectomy - path with cellular leiomyoma, all benign Plan: Reviewed path with pt and family. Low to no chance of recurrence -no atyipa or sarcoma. They were reassured. I recommended f/u 6 months (here or with Dr. Nelson), then return to annual visits. All questions answered. She requested copy of note/path to PCP (name illegable on written forms). She may begin to walk on treadmill and precautions were discussed. Electronically Signed By: Mary Ann Castro MD Date: 11/01/2013 Time: 4:37 PM cc: Rosemary Nelson PCP documented in this encounter Plan of Treatment Upcoming Encounters Date Type Department Care Team (Late st Contact Info) Description 10/11/2025 11:30 AM EST Office Visit [facility] BARIATRIC SURGERY [address] [place] [address] Lesia Mcmillan MD [address] [place] [address] 11/29/2025 8:30 AM EST Appointment [facility] [address] [place] [address] 12/13/2025 11:00 AM EST Office Visit [facility] PULMONARY & CRITICAL CARE MEDICINE [address] [facility] [place] [place] [address] Mu Castillo DO [address] [place] [address] documented as of this encounter Visit Diagnoses Not on filedocumented in this encounter Additional Health Concerns Infection Onset Date Last Indicated Resolved Time COVID Screen (preop/placement) 11/11/2021 11/11/2021 11/11/2021 3:17 AM EST COVID (confirmed) 11/11/2021 11/11/2021 02/09/2022 9:08 PM EDT COVID Screen (preop/placement) 12/16/2023 12/16/2023 12/16/2023 3:36 PM EST documented as of this encounter Care Teams Children'S Program Coordinator Relationship Specialty Start Date End Date Gavin Jo MD [address] [facility] [place] [address] PCP - General Internal Medicine 02/21/23 documented as of this encounter
--- OUTSIDE RECORDS SUMMARY | 2025-09-24 08:15 | XMS_ITS | Encounter Summary ---
Author Organization [facility] Address [address] [place] [address] Care Team Providers Care Site Physician Name Role Phone Gavin Jo MD Primary Care Provider [phone] Encounter Details Date Type Department Care Team (Latest Contact Info) Description 09/02/2025 Travel Social History Tobacco Use Types Packs/Day Years Used Date Smoking Tobacco: Never Passive Smoke Exposure: Never Smokeless Tobacco: Never Alcohol Use Standard Drinks/Week Comments Not Currently 0 (1 standard drink = 0.6 oz pur e alcohol) [facility] Utilities Answer Date Recorded In the past 12 months has [employer] electric, gas, oil, or water company threatened [...] care, and heating? Not very hard 07/22/2025 [facility] [place] of Occupat ional Health - Occupational Stress [...] GED or equivalent No 07/22/2025 Preferred Language Omani 07/22/2025 PHQ-2 Answer Date Recorded Patient Health [...] Description 10/11/2025 11:30 AM EST Office Visit [facility] BARIATRIC SURGERY [address] [place] [address] Lesia Mcmillan MD [address] [place] [address] 11/29/2025 8:30 AM EST Appointment [facility] [address] [place] [address] 12/13/2025 11:00 AM EST Office Visit [facility] PULMONARY & CRITICAL CARE MEDICINE [address] [facility] [address] Mu Castillo, [address] [place] [address] documented as of this encounter Visit Diagnoses Not on filedocumented in this encounter Care Teams Site Physician Relationship Specialty Start Date End Date Gavin Jo MD [address] [facility] [place] [address] PCP - General Internal Medicine 02/21/23 documented as of this encounter
--- OUTSIDE RECORDS SUMMARY | 2025-09-24 08:15 | XMS_ITS | Encounter Summary ---
Author Organization Healthcare Address [address] [place] [address] Care Team Providers Care Brake Repair Mechanic Name Role Phone Gavin Jo MD Primary Care Provider [phone] Randal Amaya APRN, DNP Unavailable [phone] Encounter Details Date Type Department Care Team (Latest Contact Info) Description 08/16/2025 Travel Social History Tobacco Use Types Packs/Day [...] on file documented as of this encounter Functional Status * Over the past 2 weeks, how often have you been bothered by any of the following problems? Question Answer Date of Assessment Author Little interest or pleasure in doing things Not at all 08/16/2025 12:45 PM EDT Angelika Bishop Feeling down, depressed, or hopeless Not at all 08/16/2025 12:45 PM EDT Angelika Bishop Patient Health Questionnaire -2 Score 0 08/16/2025 12:45 PM EDT Angelika Bishop * Question Answer Date of Assessment Author Trouble falling or staying a sleep, or sleeping too much Not at all 08/16/2025 12:45 PM EDT Angelika Bishop Feeling tired or having senia le energy Not at all 08/16/2025 12:45 PM EDT Angelika Bishop Poor appetite or overeating Not at all 08/16/2025 12 :45 PM EDT Angelika Bishop Feeling bad about yourself - or that you are a failure or have let yourself or your family down Not at all 08/16/2025 12:45 PM EDT Mandy Bishop Trouble concentrating on thi ngs, such as reading the newspaper or watching television Not at all 08/16/2025 12:45 PM EDT Angelika Bishop Moving or speaking so slowly that other people could have noticed? Or the opposite - being so fidgety or restless that you have been moving around a lot more than usual. Not at all 08/16/2025 12:45 PM EDT Angelika Bishop Thoughts that you would be b cesia off or hurting yourself in some way Not at all 08/16/2025 12:45 PM EDT Angelika Bishop Patient Health Questionnaire -9 Score 0 08/16/2025 12:45 PM EDT Angelika Bishop * How difficult have these problems made it for you to do your work, take care of things at home, or get along with other people? Answer Date of Assessment Author Not difficult at all 08/16/2025 12:45 PM EDT Angelika Somers documented as of this encounter Plan of Treatment Upcoming Encounters Date Type Department Care Team (Late st Contact Info) Description 02/21/2026 11:00 AM EDT Appointment Medical Office Building Cardiac Diagnostic Testing Medical Office Building Echo Lab [address] [facility], [address] [place] [address] 02/21/2026 12:40 PM EDT Office Visit [facility] [place] [address] [facility], [address] [place] [address] Brian Mendes MD [address] [place] [address] documented as of this encounter Visit Diagnoses Not on filedocumented in this encounter Additional Health Concerns Assessment Noted Time PHQ-9 Depression Total Score: 0 08/16/20 12:45 PM EDT A fall risk assessment has been complete d for the patient 08/16/2025 12:45 PM EDT A Body Mass Index follow-up plan has been documented for the patient 08/16/2025 3:07 PM EDT documented as of this encounter Care Teams Brake Repair Mechanic Relationship Specialty Start Date End Date Gavin Jo MD [address] [facility] [address] [address] PCP - General 05/05/22 Randal Amaya APRN, REYES [address] [place] [address] Nurse Practitioner Psychiatry 03/01/25 documented as of this encounter
--- OUTSIDE RECORDS SUMMARY | 2025-09-24 08:15 | XMS_ITS | Encounter Summary ---
Author Organization Healthcare Address [address] [place] [address] Care Team Providers Care Lard Maker Name Role Phone Maria Alejandra Gastelum APRN Primary Care Provider [phone] Gavin Jo MD Primary Care Provider [phone] Randal Amaya APRN, DNP Unavailable [phone] Encounter Details Date Type Department Care Team (Late st Contact Info) Description 04/09/2022 Outside Procedure External Location [address] [place] [phone] Provider, [facility] Social History Tobacco Use Types Packs/Day Years [...] on file documented as of this encounter Plan of Treatment Upcoming Encounters Date Type Department Care Team (Late st Contact Info) Description 02/21/2026 11:00 AM EDT Appointment Medical Office Building Cardiac Diagnostic Testing Medical Office Building Echo Lab [address] [facility], [address] [place] [address] 02/21/2026 12:40 PM EDT Office Visit [facility] [address] [facility], [address] [place] [address] Brian Mendes MD [address] [place] [phone] documented as of this encounter Procedures Procedure Name Priority Date/Time Associated Diagnosis Comments XR CHEST 2 VIEWS 04/09/2022 9:41 AM EDT documented in this encounter Results * XR Chest 2 Views (04/09/2022 9:41 AM EDT) Anatomical Region Laterality Modality Chest Radiographic Olya ging 04/09/2022 9:41 AM EDT Narrative 04/09/2022 10:23 [place] [address] Name: ASHELY GOMEZ Exam Date: 04/09/2022 : 1975 Age 47 Gender: F Physician: [employer] Facility: [facility] Facility HSV: Outpatient Exam: CHEST 2 VIEWS CHEST, 2 views HISTORY: Preoperative for respiratory clearance COMPARISON: None. FINDINGS: The lungs are clear. There is no evidence of effusion or other pleural disease. The mediastinum has a normal appearance. The cardiac silhouette is unremarkable. IMPRESSION: No acute cardiopulmonary findings. Dictated By: Tiffani Butt Transcribed By: Tiffani Faith Transcribed On: 04/09/2022 10:12 AM Electronically signed by: Tiffani Butt 04/09/2022 Thank you for referring ASHELY GOMEZ to [facility]. Legally authenticated by PATSY CAMP 2022-04-09 10:12:56 Procedure Note Provider, Generic Como - 04/09/2022 [place] [address] Name: ASHELY GOMEZ Exam Date: 04/09/2022 : 1975 Age 47 Gender: F Physician: SALO STEEL Facility: [facility] Facility HSV: Outpatient Exam: CHEST 2 VIEWS CHEST, 2 views HISTORY: Preoperative for respiratory clearance COMPARISON: None. FINDINGS: The lungs are clear. There is no evidence of effusion or other pleural disease. The mediastinumhas a normal appearance. The cardiac silhouette is unremarkable. IMPRESSION: No acute cardiopulmonary findings. Dictated By: Tiffani Butt Transcribed By: Tiffani Faith Transcribed On: 04/09/2022 10:12 AM Electronically signed by: Tiffani Butt 04/09/2022 Thank you for referring ASHELY GOMEZ to [facility]. Legally authenticated by PATSY CAMP 2022-04-09 10:12:56 Generic [place] Provider IMG XR PROCEDURES Fi nal Result documented in this encounter Visit Diagnoses Not on filedocumented in this encounter Additional Health Concerns Infection Onset Date Last Indicated Resolved Time COVID-19 Rule-Out 06/13/2024 06/13/2024 06/13/2024 3:26 PM EDT Assessment Noted Time A fall risk assessment has been complete d for the patient 07/02/2021 11:05 AM EDT documented as of this encounter Care Teams Lard Maker Relationship Specialty Start Date End Date Maria Alejandra Gastelum APRN [address] [place] [address] PCP - General 03/06/21 05/04/22 Gavin Jo MD [address] [address] PCP - General 05/05/22 Randal Amaya APRN, REYES [address] [place] [address] Nurse Practitioner Psychiatry 03/01/25 documented as of this encounter
--- OUTSIDE RECORDS SUMMARY | 2025-09-24 08:15 | XMS_ITS | Encounter Summary ---
Author Organization Healthcare Address [address] [place] [address] Care Team Providers Care Landfill Attendant Name Role Phone Maria Alejandra Gastelum APRN Primary Care Provider [phone] Gavin Jo MD Primary Care Provider [phone] Randal Amaya APRN, DNP Unavailable [phone] Encounter Details Date Type Department Care Team ([facility] Contact Info) Description 04/19/2022 Outside Procedure External Location [address] [place] [address] Provider, [facility] Social History Tobacco Use Types Packs/Day Years [...] suspected to have Coronavirus/COVID-19? No / Unsure 04/20/2022 7:26 AM EDT documented as of this encounter Plan of Treatment Upcoming Encounters Date Type Department Care Team ([facility] Contact Info) Description 02/21/2026 11:00 AM EDT Appointment Medical Office Building Cardiac Diagnostic Testing Medical Office Building Echo Lab [address] [facility], [address] [place] [phone] 02/21/2026 12:40 PM EDT Office Visit [facility] [place] [address] [facility], [address] [place] [address] Brian Mendes MD [address] [place] [address] documented as of this encounter Procedures Procedure Name Priority Date/Time Associated Diagnosis Comments MAMMOGRAPHY BREAST SCREENING TOMOSYNTHESIS BILATERAL 04/19/2022 11:11 AM EDT documented in this encounter Results * Mammography Breast Screening Tomosynthesis Bilateral (04/19/2022 11:11 AM EDT) Anatomical Region Laterality Modality Breast Bilateral Mammography 04/19/2022 11:1 1 AM EDT Narrative 04/19/2022 5:16 PM EDT [address] [address] Name: ASHELY GOMEZ Exam Date: 04/19/2022 : 1975 Age 47 Gender: F Physician: KENJI SILVA Facility: [facility] Facility HSV: Outpatient Exam: BAIRON SCRN MAMMO W/CAD BILAT MAMMOGRAM SCREENING BILATERAL HISTORY: Routine screening exam. TECHNIQUE: Standard digital 2-D views with 3-D tomosynthesis. COMPARISON: 10/29/2019 and 03/20/2021. DENSITY: There are scattered areas of fibroglandular density. FINDINGS: No mass, suspicious calcifications or architectural distortion is present. IMPRESSION: No mammographic evidence of malignancy. BI-RADS 1: Negative. RECOMMENDATION: Annual mammography. CAD was utilized during interpretation. The patient will be sent a letter from the mammography department with their mammography results. Dictated By: ELENA LOZANO Transcribed By: jose antonio nunn Transcribed On: 04/19/2022 4:54 PM Electronically signed by: ELENA LOZANO 04/19/2022 [facility] Legally authenticated by BLAKE FENTON 2022-04-19 17:03:47 Procedure Note Provider, Missael Murdockwn - 04/19/[address] [address] Name: ASHELY GOMEZ Exam Date: 04/19/2022 : 1975 Age 47 Gender: F Physician: KENJI SILVA Facility: [facility] Facility HSV: Outpatient Exam: BAIRON SCRN MAMMO W/CAD BILAT MAMMOGRAM SCREENING BILATERAL HISTORY: Routine screening exam. TECHNIQUE: Standard digital 2-D views with 3-D tomosynthesis. COMPARISON: 10/29/2019 and 03/20/2021. DENSITY: There are scattered areas of fibroglandular density. FINDINGS: No mass, suspicious calcifications or architectural distortionis present. IMPRESSION: No mammographic evidence of malignancy. BI-RADS 1: Negative. RECOMMENDATION: Annual mammography. CAD was utilized during interpretation. The patient will be sent a letter from the mammography department withtheir mammography results. Dictated By: ELENA LOZANO Transcribed By: jose antonio nunn Transcribed On: 04/19/2022 4:54 PM Electronically signed by: ELENA LOZANO 04/19/2022 Thank you for referring ASHELY GOMEZ to [facility]. Legally authenticated by BLAKE FENTON 2022-04-19 17:03:47 Generic [place] Provider IMG BI PROCEDURES Fi nal Result documented in this encounter Visit Diagnoses Not on filedocumented in this encounter Additional Health Concerns Infection Onset Date Last Indicated Resolved Time COVID-19 Rule-Out 06/13/2024 06/13/2024 06/13/2024 3:26 PM EDT Assessment Noted Time A fall risk assessment has been complete d for the patient 07/02/2021 11:05 AM EDT documented as of this encounter Care Teams Landfill Attendant Relationship Specialty Start Date End Date Maria Alejandra Gastelum APRN [address] [place] [address] PCP - General 03/06/21 05/04/22 Gavin Jo MD [address] [place] [address] [address] [address] PCP - General 05/05/22 Randal Amaya APRN, REYES [address] [place] [address] Nurse Practitioner Psychiatry 03/01/25 documented as of this encounter
--- OUTSIDE RECORDS SUMMARY | 2025-09-24 08:15 | XMS_ITS | Encounter Summary ---
Author Organization [facility] Address [address] [place] [id number] Care Team Providers Care Case Maker Name Role Phone Gavin Jo MD Primary Care Provider [phone] Encounter Details Date Type Department Care Team (Late st Contact Info) Description 09/03/2025 Telephone [facility] BARIATRIC SURGERY [address] [address] Angelika Pierre APRN [address] [place] [address] Social History Tobacco Use Types Packs/Day Years Used Date Smoking Tobacco: Never Passive Smoke Exposure: Never Smokeless Tobacco: Never Alcohol Use Standard Drinks/Week Comments Not Currently 0 (1 standard drink = 0.6 oz pur e alcohol) [facility] Utilities Answer Date Recorded In the past 12 months has [employer], gas, oil, or water [employer] threatened to shut off services in your [...] care, and heating? Not very hard 07/22/2025 [place] [facility] - Occupational Stress [...] GED or equivalent No 07/22/2025 Preferred Language Romanian 07/22/2025 PHQ-2 Answer Date Recorded Patient Health Questionnaire-2 Score 0 07/22/2025 Comments No Sex and Gender Information Value Date Recorded Sex Assigned at Female 04/17/2025 11:38 AM EDT Legal Sex Female 1:04 PM EDT Gender Identity Not on file Sexual Orientation Straight 04/17/2025 11 :38 AM EDT documented as of this encounter Miscellaneous Notes * Telephone Encounter - Brittani Carlton CMA - 09/03/2025 10:32 AM EST Patient informed that Dr. Barriga would like CT abd/pel and lab work instead of the UGI x-ray. All have been ordered. She can go to any [facility] lab for labs, please help facilitate CT scan Scheduled Ct scan for [place] location 09/13/2025@9:00am Patient to arrive at 8:00am. NPO 2 hours prior. Patient aware of day and time and verbally understood. * Telephone Encounter - Angelika Pierre APRN - 09/03/2025 8:57 AM EST ----- Message from Stewart Barriga sent at 09/02/2025 2:35 PM EST ----- If not too late try and get a CT scan of the abdomen pelvis with IV and oral (water soluble) contrast rather than an upper GI, and check a CBC with differential and CMP, thanks! ----- Message ----- From: Angelika Pierre APRN Sent: 09/02/2025 12:52 PM EST To: Stewart Barriga MD documented in this encounter Plan of Treatment Upcoming Encounters Date Type Department Care Team (Late st Contact Info) Description 10/11/2025 11:30 AM EST Office Visit [facility] BARIATRIC SURGERY [address] [place] [address] Lesia Mcmillan MD [address] [place] [address] 11/29/2025 8:30 AM EST Appointment [facility] [address] [place] [address] 12/13/2025 11:00 AM EST Office Visit [facility] PULMONARY & CRITICAL CARE MEDICINE [address] [place] [phone] Mu Castillo DO [address] [place] [address] documented as of this encounter Visit Diagnoses Not on filedocumented in this encounter Care Teams Case Maker Relationship Specialty Start Date End Date Gavin Jo MD [address] [facility] [place] [address] PCP - General Internal Medicine 02/21/23 documented as of this encounter
--- OUTSIDE RECORDS SUMMARY | 2025-09-24 08:16 | XMS_ITS | Encounter Summary ---
Author Organization [facility] Address [address] [place] [address] Care Team Providers Care Fashion Buying Internship Name Role Phone Gavin Jo MD Primary Care Provider [phone] Encounter Details Date Type Department Care Team (Latest Contact Info) Description 08/16/2025 Travel Social History Tobacco Use Types Packs/Day Years Used Date Smoking Tobacco: Never Passive Smoke Exposure: Never Smokeless Tobacco: Never Alcohol Use Standard Drinks/Week Comments Not Currently 0 (1 standard drink = 0.6 oz pur e alcohol) [facility] Utilities Answer Date Recorded In the past 12 months has [employer] electric, gas, oil, or water company threatened [...] care, and heating? Not very hard 07/22/2025 [facility] [place] of Occupat ional Health - Occupational Stress [...] GED or equivalent No 07/22/2025 Preferred Language Citizen Of [place] 07/22/2025 PHQ-2 Answer Date Recorded Patient Health [...] [facility] BARIATRIC SURGERY [address] [place] [address] Lesia Mcmillan MD [address] [place] [address] 11/29/2025 8:30 AM EST Appointment [facility] [address] [place] [address] 12/13/2025 11:00 AM EST Office Visit [facility] PULMONARY & CRITICAL CARE MEDICINE [address] [facility] [address] Mu Castillo, [address] [place] [address] documented as of this encounter Visit Diagnoses Not on filedocumented in this encounter Care Teams Fashion Buying Internship Relationship Specialty Start Date End Date Gavin Jo MD [address] [facility] [place] [address] PCP - General Internal Medicine 02/21/23 documented as of this encounter
--- OUTSIDE RECORDS SUMMARY | 2025-09-24 08:16 | XMS_ITS | Encounter Summary ---
Author Organization [facility] Address [address] [place] [address] Care Team Providers Care Calibration Checker Name Role Phone Gavin Jo MD Primary Care Provider [phone] Encounter Details Date Type Department Care Team (Latest Contact Info) Description 09/07/2025 Travel Social History Tobacco Use Types Packs/Day Years Used Date Smoking Tobacco: Never Passive Smoke Exposure: Never Smokeless Tobacco: Never Alcohol Use Standard Drinks/Week Comments Not Currently 0 (1 standard drink = 0.6 oz pur e alcohol) [facility] Utilities Answer Date Recorded In the past 12 months has [email or web address] electric, gas, oil, or water company threatened [...] care, and heating? Not very hard 07/22/2025 [facility] [place] of Occupat ional Health - Occupational Stress [...] GED or equivalent No 07/22/2025 Preferred Language Tuvaluan 07/22/2025 PHQ-2 Answer Date Recorded Patient Health [...] Description 10/11/2025 11:30 AM EST Office Visit [facility] BARIATRIC SURGERY [address] [place] [address] Lesia Mcmillan MD [address] [place] [address] 11/29/2025 8:30 AM EST Appointment [facility] [address] [place] [address] 12/13/2025 11:00 AM EST Office Visit [facility] PULMONARY & CRITICAL CARE MEDICINE [address] [place] [address] Mu Castillo, [address] [place] [address] documented as of this encounter Visit Diagnoses Not on filedocumented in this encounter Care Teams Calibration Checker Relationship Specialty Start Date End Date Gavin Jo MD [address] [facility] [place] [address] PCP - General Internal Medicine 02/21/23 documented as of this encounter
--- OUTSIDE RECORDS SUMMARY | 2025-09-24 08:16 | XMS_ITS | Encounter Summary ---
Author Organization Healthcare Address [facility] [place] [address] Care Team Providers Care Wagon Drill Operator Name Role Phone Maria Alejandra Gastelum APRN Primary Care Provider [phone] Gavin Jo MD Primary Care Provider [phone] Randal Amaya APRN, DNP Unavailable [phone] Reason for Visit * Reason Onset Date Comments HCN - Patient Message 07/13/2021 Encounter Details Date Type Department Care Team (Late st Contact Info) Description 07/13/2021 Telephone Family and Community Medicine [address] [place] [address] Maria Alejandra Gastelum APRN [address] [place] [address] HCN - Patient Message Social History Tobacco Use Types Packs/Day Years [...] Exposure Response Date Recorded In the last month, have you been in contact with someone who was confirmed or suspected to have Coronavirus / COVID-19? Unable to assess 07/14/2021 10:21 AM EDT documented as of this encounter Miscellaneous Notes * Telephone Encounter - Amanda Corea - 07/13/2021 4:49 PM EDT Patient informed. * Telephone Encounter - Amy Fragoso MD - 07/13/2021 4:34 PM EDT Work her in with Maria Alejandra at 10:20 tomorrow, Ok to say in comments that I approved it * Telephone Encounter - Meme Bragg - 07/13/2021 3:27 PM EDT Patient Phone Message Reason for Call: Pt calling again states she is having new onset symptoms such as LL part of back hurting and burning when urinating please call. Best contact number and optimal time of day to reach caller: Note: Please do not reply to this message. Follow-up communication and further actions as a result of this message need to be communicated with the patient directly, if the patient is not active onMyChart. If the patient is active on MyChart, they will receive notification of the communication/outcome via [employer]. * Telephone Encounter - Merry Lazaro MA - 07/13/2021 2:36 PM EDT Please advise. * Telephone Encounter - Lucero Medrano - 07/13/2021 12:50 PM EDT Patient Phone Message Reason for Call: attempted to schedule same day for Nirav on 07.15. - but patient cannot dueto work - asking for overbook for tomorrow - Call was disconnected by patient before I could finish this request Best contact number and optimal time of day to reach caller: [phone] Note: Please do not reply to this message. Follow-up communication and further actions as a result of this message need to be communicated with the patient directly, if the patient is not active onMyChart. If the patient is active on MyChart, they will receive notification of the communication/outcome via [employer]. * Telephone Encounter - Cassie Leone - 07/13/2021 11:43 AM EDT Attempted to call, no vm. * Telephone Encounter - Maria Alejandra Gastelum APRN - 07/13/2021 11:30 AM EDT Do work in for wed can be same day appt * Telephone Encounter - Merry Lazaro MA - 07/13/2021 11:20 AM EDT Blood sugar was over 600. Appointment has not been scheduled due to availability. Should she be a work in ? * Telephone Encounter - Cassie Leone - 07/13/2021 10:26 AM EDT Attempted to call, no cm. * Telephone Encounter - Janine Cornejo - 07/13/2021 9:50 AM EDT Patient Phone Message Reason for Call: Patient calling stated she went to [facility] 07/[facility]2021 for what she thought to be a heart attack, but it was her BP running over 600. Patient requesting appt 07/14/21. Sent [employer] Best contact number and optimal time of day to reach caller: [phone] Note: Please do not reply to this message. Follow-up communication and further actions as a result of this message need to be communicated with the patient directly, if the patient is not active onMyChart. If the patient is active on MyChart, they will receive notification of the communication/outcome via MyChart. documented in this encounter Plan of Treatment Upcoming Encounters Date Type Department Care Team (Late st Contact Info) Description 02/21/2026 11:00 AM EDT Appointment Medical Office Building Cardiac Diagnostic Testing Medical Office Building Echo Lab [address], [address] [place] [address] 02/21/2026 12:40 PM EDT Office Visit [facility] [place] [place] [address], [address] [place] [address] Brian Mendes MD [address] [place] [address] documented as of this encounter Visit Diagnoses Not on filedocumented in this encounter Additional Health Concerns Infection Onset Date Last Indicated Resolved Time COVID-19 Rule-Out 06/13/2024 06/13/2024 06/13/2024 3:26 PM EDT Assessment Noted Time A fall risk assessment has been complete d for the patient 07/02/2021 11:05 AM EDT documented as of this encounter Care Teams Wagon Drill Operator Relationship Specialty Start Date End Date Maria Alejandra Gastelum APRN [address] [place] [address] PCP - General 03/06/21 05/04/22 Gavin Jo MD [address] [address] PCP - General 05/05/22 Randal Amaya APRN, DNP [address] [place] [address] Nurse Practitioner Psychiatry 03/01/25 documented as of this encounter
--- OUTSIDE RECORDS SUMMARY | 2025-09-24 08:16 | XMS_ITS | Encounter Summary ---
Author Organization [facility] Address [address] [place] [address] Care Team Providers Care Tube Bender Name Role Phone Gavin Jo MD Primary Care Provider [phone] Encounter Details Date Type Department Care Team (Latest Contact Info) Description 07/31/2025 Travel Social History Tobacco Use Types Packs/Day Years Used Date Smoking Tobacco: Never Passive Smoke Exposure: Never Smokeless Tobacco: Never Alcohol Use Standard Drinks/Week Comments Not Currently 0 (1 standard drink = 0.6 oz pur e alcohol) [facility] Utilities Answer Date Recorded In the past 12 months has [employer] electric, gas, oil, or water company threatened [...] care, and heating? Not very hard 07/22/2025 [facility] [place] of Occupat ional Health - Occupational Stress [...] GED or equivalent No 07/22/2025 Preferred Language Macedonian 07/22/2025 PHQ-2 Answer Date Recorded Patient Health [...] Description 10/11/2025 11:30 AM EST Office Visit [facility] BARI[facility]RIC SURGERY [address] [place] [address] Lesia Mcmillan MD [address] [place] [address] 11/29/2025 8:30 AM EST Appointment [facility] [address] [place] [address] 12/13/2025 11:00 AM EST Office Visit [facility] PULMONARY & CRITICAL CARE MEDICINE [address] [facility] [place] [address] Mu Castillo, [address] [place] [address] documented as of this encounter Visit Diagnoses Not on filedocumented in this encounter Care Teams Tube Bender Relationship Specialty Start Date End Date Gavin Jo MD [address] [facility] [place] [address] PCP - General Internal Medicine 02/21/23 documented as of this encounter
--- OUTSIDE RECORDS SUMMARY | 2025-09-24 08:16 | XMS_ITS | Encounter Summary ---
Author Organization [facility] Address [address] [place] [address] Care Team Providers Care Proof Coin Collector Name Role Phone Gavin Jo MD Primary Care Provider [phone] Encounter Details Date Type Department Care Team (Latest Contact Info) Description 08/06/2025 Travel Social History Tobacco Use Types Packs/Day Years Used Date Smoking Tobacco: Never Passive Smoke Exposure: Never Smokeless Tobacco: Never Alcohol Use Standard Drinks/Week Comments Not Currently 0 (1 standard drink = 0.6 oz pur e alcohol) [facility] Utilities Answer Date Recorded In the past 12 months has [employer] electric, gas, oil, or water company threatened [...] care, and heating? Not very hard 07/22/2025 [facility] of Occupat ional Health - Occupational Stress [...] GED or equivalent No 07/22/2025 Preferred Language Solomon Islander 07/22/2025 PHQ-2 Answer Date Recorded Patient Health [...] Description 10/11/2025 11:30 AM EST Office Visit [facility]IC SURGERY [address] [place] [address] Lesia Mcmilaln MD [address] [place] [address] 11/29/2025 8:30 AM EST Appointment [facility] [address] [place] [address] 12/13/2025 11:00 AM EST Office Visit [facility] PULMONARY & CRITICAL CARE MEDICINE [address] [place] [address] Mu Castillo, [address] [place] [address] documented as of this encounter Visit Diagnoses Not on filedocumented in this encounter Care Teams Proof Coin Collector Relationship Specialty Start Date End Date Gavin Jo MD [address] [facility] [place] [address] PCP - General Internal Medicine 02/21/23 documented as of this encounter
--- OUTSIDE RECORDS SUMMARY | 2025-09-24 08:16 | XMS_ITS | Encounter Summary ---
Author Organization [facility] Address [address] [place] [address] Care Team Providers Care Refinery Operator Helper Crude Unit Name Role Phone Gavin Jo MD Primary Care Provider [phone] Encounter Details Date Type Department Care Team (Latest Contact Info) Description 09/13/2025 Travel Social History Tobacco Use Types Packs/Day Years Used Date Smoking Tobacco: Never Passive Smoke Exposure: Never Smokeless Tobacco: Never Alcohol Use Standard Drinks/Week Comments Not Currently 0 (1 standard drink = 0.6 oz pur e alcohol) [facility] Utilities Answer Date Recorded In the past 12 months has [employer] electric, gas, oil, or water company threatened [...] care, and heating? Not very hard 07/22/2025 [facility] [place] of Occupat ional Health - Occupational Stress [...] GED or equivalent No 07/22/2025 Preferred Language Syrian 07/22/2025 PHQ-2 Answer Date Recorded Patient Health [...] Description 10/11/2025 11:30 AM EST Office Visit [facility] BARIATRIC SURGERY [address] [place] [address] Lesia Mcmillan MD [address] [place] [address] 11/29/2025 8:30 AM EST Appointment [facility] [address] [place] [address] 12/13/2025 11:00 AM EST Office Visit [facility] PULMONARY & CRITICAL CARE MEDICINE [address] [facility] [place] [address] Mu Castillo, [address] [place] [address] documented as of this encounter Visit Diagnoses Not on filedocumented in this encounter Care Teams Refinery Operator Helper Crude Unit Relationship Specialty Start Date End Date Gavin Jo MD [address] [facility] [place] [address] PCP - General Internal Medicine 02/21/23 documented as of this encounter
--- OUTSIDE RECORDS SUMMARY | 2025-09-24 08:16 | XMS_ITS | Encounter Summary ---
Author Organization [facility] Address [address] [place] [address] Care Team Providers Care International Logistics Analyst Name Role Phone Gavin Jo MD Primary Care Provider [phone] Encounter Details Date Type Department Care Team (Late st Contact Info) Description 09/10/2025 Telephone [facility] BARIATRIC SURGERY [address] [place] [address] Social History Tobacco Use Types Packs/Day Years Used Date Smoking Tobacco: Never Passive Smoke Exposure: Never Smokeless Tobacco: Never Alcohol Use Standard Drinks/Week Comments Not Currently 0 (1 standard drink = 0.6 oz pur e alcohol) [facility] Utilities Answer Date Recorded In the [...] care, and heating? Not very hard 07/22/2025 [facility] [place] of Occupat ional Health - Occupational Stress [...] GED or equivalent No 07/22/2025 Preferred Language Slovak 07/22/2025 PHQ-2 Answer Date Recorded Patient Health Questionnaire-2 Score 0 07/22/2025 Comments No Sex and Gender Information Value Date Recorded Sex Assigned at Female 04/17/2025 11:38 AM EDT Legal Sex Female 1:04 PM EDT Gender Identity Not on file Sexual Orientation Straight 04/17/2025 11 :38 AM EDT documented as of this encounter Miscellaneous Notes * Telephone Encounter - Jessica Lopez RD - 09/10/2025 8:39 AM EST Pt requested a nutrition consult after her appt TuesdaySeptember 13 documented in this encounter Plan of Treatment Upcoming Encounters Date Type Department Care Team (Late st Contact Info) Description 10/11/2025 11:30 AM EST Office Visit [facility] SURGERY [address] [facility] [address] [place] [address] Lesia Mcmillan MD [address] [facility] [address] [place] [address] 11/29/2025 8:30 AM EST Appointment [facility] [address] [place] [address] 12/13/2025 11:00 AM EST Office Visit [facility] PULMONARY & CRITICAL CARE MEDICINE [address] [place] [address] Mu Castillo DO [address] [place] [address] documented as of this encounter Visit Diagnoses Not on filedocumented in this encounter Care Teams International Logistics Analyst Relationship Specialty Start Date End Date Gavin Jo MD [address] [place] [address] PCP - General Internal Medicine 02/21/23 documented as of this encounter
--- OUTSIDE RECORDS SUMMARY | 2025-09-24 08:16 | XMS_ITS | Encounter Summary ---
Author Organization [facility] Address [address] [place] [address] Care Team Providers Care Forest Landscape Ecology Professor Name Role Phone Gavin Jo MD Primary Care Provider [phone] Encounter Details Date Type Department Care Team (Late st Contact Info) Description 08/28/2025 Results Follow-Up [facility] BARIATRIC SURGERY [address] [place] [address] Theron Springer APRN [address] [place], [place] [address] Social History Tobacco Use Types Packs/Day Years Used Date Smoking Tobacco: Never Passive Smoke Exposure: Never Smokeless Tobacco: Never Alcohol Use Standard Drinks/Week Comments Not Currently 0 (1 standard drink = 0.6 oz pur e alcohol) [facility] Utilities Answer Date Recorded In the past 12 months has [employer], gas, oil, or water [employer] threatened to shut off services in your [...] care, and heating? Not very hard 07/22/2025 [place] of Occupat ionin Health - Occupational Stress Questionnaire Answer Date [...] GED or equivalent No 07/22/2025 Preferred Language Hungarian 07/22/2025 PHQ-2 Answer Date Recorded Patient Health [...] Description 10/11/2025 11:30 AM EST Office Visit [facility] BARIATRIC SURGERY [address] [place] [address] Lesia Mcmillan MD [address] [place] [address] 11/29/2025 8:30 AM EST Appointment [facility] [address] [place] [address] 12/13/2025 11:00 AM EST Office Visit [facility] PULMONARY & CRITICAL CARE MEDICINE [address] [place] [address] Mu Castillo, [address] [place] [address] documented as of this encounter Visit Diagnoses Diagnosis Vitamin D deficiency- Primary Copper deficiency Disorders of copper metabolism documented in this encounter Care Teams Forest Landscape Ecology Professor Relationship Specialty Start Date End Date Gavin Jo MD [address] [place] [address] PCP - General Internal Medicine 02/21/23 documented as of this encounter
--- OUTSIDE RECORDS SUMMARY | 2025-09-24 08:16 | XMS_ITS | Encounter Summary ---
Author Organization [facility] Address [address] [place] [id number] Care Team Providers Care Latex Caster Name Role Phone Gavin Jo MD Primary Care Provider [phone] Encounter Details Date Type Department Care Team (Late st Contact Info) Description 09/09/2025 Results Follow-Up [facility] [address] [place] [address] Angelika Pierre, SHEET METAL FABRICATOR [address] [place] [address] Social History Tobacco Use Types Packs/Day Years Used Date Smoking Tobacco: Never Passive Smoke Exposure: Never Smokeless Tobacco: Never Alcohol Use Standard Drinks/Week Comments Not Currently 0 (1 standard drink = 0.6 oz pur e alcohol) [facility] Utilities Answer Date Recorded In the past 12 months has [employer], gas, oil, or water company threatened to [...] care, and heating? Not very hard 07/22/2025 [facility] [place] of Occupat ional Health - Occupational Stress [...] GED or equivalent No 07/22/2025 Preferred Language Lithuanian 07/22/2025 PHQ-2 Answer Date Recorded Patient Health [...] Visit [facility] BARI[facility]RIC SUR[facility]ERY [address] [place] [address] Lesia Mcmillan MD [address] [place] [address] 11/29/2025 8:30 AM EST Appointment [facility] [address] [place] [address] 12/13/2025 11:00 AM EST Office Visit [facility] PULMONARY & CRITICAL CARE MEDICINE [address] [place] [address] Mu Castillo DO [address] [place] [address] documented as of this encounter Visit Diagnoses Not on filedocumented in this encounter Care Teams Latex Caster Relationship Specialty Start Date End Date Gavin Jo MD [address] [place] [address] PCP - General Internal Medicine 02/21/23 documented as of this encounter
--- OUTSIDE RECORDS SUMMARY | 2025-09-24 08:16 | XMS_ITS | Encounter Summary ---
Author Organization [facility] Address [address] [place] [address] Care Team Providers Care Oil Transport Driver Name Role Phone Gavin Jo MD Primary Care Provider [phone] Encounter Details Date Type Department Care Team (Late st Contact Info) Description 09/13/[address] [facility] BARIATRIC SURGERY [address] [place] [address] Social History Tobacco Use Types Packs/Day Years Used Date Smoking Tobacco: Never Passive Smoke Exposure: Never Smokeless Tobacco: Never Alcohol Use Standard Drinks/Week Comments Not Currently 0 (1 standard drink = 0.6 oz pur e alcohol) [facility] Utilities Answer Date Recorded In the past [...] care, and heating? Not very hard 07/22/2025 [facility] [place] of Occupat ional Health - Occupational Stress [...] GED or equivalent No 07/22/2025 Preferred Language Rwandan 07/22/2025 PHQ-2 Answer Date Recorded Patient Health Questionnaire-2 Score 0 07/22/2025 Comments No Sex and Gender Information Value Date Recorded Sex Assigned at Female 04/17/2025 11:38 AM EDT Legal Sex Female 1:04 PM EDT Gender Identity Not on file Sexual Orientation Straight 04/17/2025 11 :38 AM EDT documented as of this encounter Progress Notes * Jessica Lopez RD - 09/13/2025 10:17 AM EST Post op bariatric surgery nutrition consult: 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 Gross Diet hx: tracks in baritastic. Cals vary. Always achieves 100+g protein Issue is night time snacking Eats dinner 6-7p, doesn't sleep well so may be awake til 3a Issue with snacking is related to routine of snacking and boredom Did find a protein bar wrapper and does not recall eating it Cals in evening snack range from 200-500cals BMR 1636cals Plan: Set planned time for 2 snacks in the evening Distraction techniques--exercise, tv, hobbies Try sugar free gum 1300cals daily documented in this encounter Plan of Treatment Upcoming Encounters Date Type Department Care Team (Late st Contact Info) Description 10/11/2025 11:30 AM EST Office Visit [facility]ERY [address] [place] [address] Lesia Mcmillan MD [address] [place] [address] 11/29/2025 8:30 AM EST Appointment [facility] [address] [address] 12/13/2025 11:00 AM EST Office Visit [facility] PULMONARY & CRITICAL CARE MEDICINE [address] [place] [address] Mu Castillo DO [address] [place] [address] documented as of this encounter Visit Diagnoses Not on filedocumented in this encounter Care Teams Oil Transport Driver Relationship Specialty Start Date End Date Gavin Jo MD [address] [place] [address] PCP - General Internal Medicine 02/21/23 documented as of this encounter
--- OUTSIDE RECORDS SUMMARY | 2025-09-24 08:17 | XMS_ITS | Referral Summary ---
Author Organization [facility] ([place], [place], [place], [place], [place]) Address [address] [place] [address] Care Team Providers Care Erosion Control Coordinator Name Role Phone Gavin Jo MD Primary Care Provider [phone] Allergies No known active allergies Social History Tobacco Use Types Packs/Day Years Used Date Smoking Tobacco: Never Assessed Comments Unknown Sex and Gender Information Value Date Recorded Sex Assigned at Not on file Legal Sex Female 6:05 PM CDT Gender Identity Not on file Sexual Orientation Not on file Last Filed Vital Signs Vital Sign Reading Time Taken Comments Blood Pressure 134/90 01/30/2025 3:51 PM EDT Pulse 47 01/30/2025 3:51 PM EDT Temperature 36.7 C (98 F) 01/30/2025 3:51 PM EDT Respiratory Rate 16 01/30/2025 3:51 PM EDT Oxygen Saturation 99% 01/30/2025 3:51 PM EDT Inhaled Oxygen Concentration - - Weight 99.4 kg (219 lb 3.2 oz) 01/30/2025 3:51 P M EDT Height 162.6 cm (5' 4 ) 01/30/2025 3:51 PM EDT Body Mass Index 37.63 01/30/2025 3:51 PM EDT Plan of Treatment Not on file Insurance BLUE CROSS[employer]BLUE [employer] Care Teams Erosion Control Coordinator Relationship Specialty Start Date End Date Gavin Jo MD [address] [place] [address] [address] [place] [address] PCP - General General Internal Medicine 01/30/25
--- OUTSIDE RECORDS SUMMARY | 2025-09-24 08:17 | XMS_ITS | Encounter Summary ---
Author Organization [facility] Address [address] [place] [address] Care Team Providers Care Tombstone Erector Helper Name Role Phone Gavin Jo MD Primary Care Provider [phone] Reason for Referral * Consultation (Routine) - Authorized Specialty Diagnoses / Procedures Referred By Contaustin t Referred To Contact Gastroenterology Diagnoses Abnormal biopsy result Procedures CO OFFICE/OUTPATIENT NEW MODERATE MDM 45 MINUTES Theron Springer APRN [address] [facility] [address] [place] [address] Phone: tel: fax: [place] APRN [address] [facility] [address] [place] [address] Phone: tel: fax: Referral ID Status Reason Start Date Expiration Date Visits Requested Visits Authorized [id number] Authorized Specialty Services Required 04/30/2025 07/30/2026 1 1 Encounter Details Date Type Department Care Team (Late st Contact Info) Description 04/30/2025 Results Follow-Up [facility] [address] [place] [id number] Theron Springer APRN [address] [facility] [address] [place] [address] Social History Tobacco Use Types Packs/Day Years Used Date Smoking Tobacco: Never Passive Smoke Exposure: Never Smokeless Tobacco: Never Alcohol Use Standard Drinks/Week Comments Not Currently 0 (1 standard drink = 0.6 oz pur e alcohol) Abuse Screen Answer Date Recorded Feels Unsafe at Home or Work/School no 12/16/2023 Feels Threatened by Someone no 11/25 Does Anyone Try to Keep You From Having Contact with Others or Doing Things Outside Your Home? no 12/16/2023 Physical Signs of Abuse Present no 12/16/2023 Comments No Sex and Gender Information Value Date Recorded Sex Assigned at Female 04/17/2025 11:38 AM EDT Legal Sex Female 1:04 PM EDT Gender Identity Not on file Sexual Orientation Straight 04/17/2025 11 :38 AM EDT documented as of this encounter Plan of Treatment Upcoming Encounters Date Type Department Care Team (Late st Contact Info) Description 10/11/2025 11:30 AM EST Office Visit [facility] [address] [facility] [address] [place] [address] Lesia Mcmillan MD [address] [facility] [address] [place] [address] 11/29/2025 8:30 AM EST Appointment [facility] [address] [place] [id number] 12/13/2025 11:00 AM EST Office Visit [facility] PULMONARY & CRITICAL CARE MEDICINE [address] [facility] [place] [place] [id number] Mu Castillo DO [address] [place] [address] Scheduled Referrals Name Type Priority Associated Diagnoses Order Schedule Ambulatory Referral to Gastroenterology Outpatient Referral Routine Abnormal biopsy result Ordered: 04/30/2025 documented as of this encounter Visit Diagnoses Diagnosis Abnormal biopsy result- Primary documented in this encounter Care Teams Tombstone Erector Helper Relationship Specialty Start Date End Date Gavin Jo MD [address] [place] [address] PCP - General Internal Medicine 02/21/23 documented as of this encounter
--- OUTSIDE RECORDS SUMMARY | 2025-09-24 08:17 | XMS_ITS | Encounter Summary ---
Author Organization [facility] Address [address] [place] [address] Care Team Providers Care Technical Business Systems Analyst Name Role Phone Gavin Jo MD Primary Care Provider [phone] Randal Amaya APRN, DNP Unavailable [phone] Reason for Visit * Reason Comments Med Refill Encounter Details Date Type Department Care Team (Late st Contact Info) Description 05/30/2022 Refill Family and Community Medicine [address] [place] [address] Maria Alejandra Gastelum APRN [address] [place] [address] Social History Tobacco Use Types Packs/Day Years [...] encounter Miscellaneous Notes * Telephone Encounter - Merry Lazaro - 06/02/2022 8:48 AM EDT Lmtrc x1 documented in this encounter Plan of Treatment Upcoming Encounters Date Type Department Care Team (Late st Contact Info) Description 02/21/2026 11:00 AM EDT Appointment Medical Office Building Cardiac Diagnostic Testing Medical Office Building Echo Lab [address] [place] [address] 02/21/2026 12:40 PM EDT Office Visit [facility] [place] [address], [address] [place] [address] Brian Mendes MD [address] [place] [address] documented as of this encounter Visit Diagnoses Not on filedocumented in this encounter Additional Health Concerns Infection Onset Date Last Indicated Resolved Time COVID-19 Rule-Out 06/13/2024 06/13/2024 06/13/2024 3:26 PM EDT Assessment Noted Time A fall risk assessment has been complete d for the patient 05/05/2022 12:29 PM EDT documented as of this encounter Care Teams Technical Business Systems Analyst Relationship Specialty Start Date End Date Gavin Jo MD [address] [address] PCP - General 05/05/22 Randal Amaya APRN, DNP [address] [place] [address] Nurse Practitioner Psychiatry 03/01/25 documented as of this encounter
--- OUTSIDE RECORDS SUMMARY | 2025-09-24 08:17 | XMS_ITS | Encounter Summary ---
Author Organization [facility] Address [address] [place] [id number] Care Team Providers Care Section Laborer Name Role Phone Gavin Jo MD Primary Care Provider [phone] Encounter Details Date Type Department Care Team (Late st Contact Info) Description 08/07/2025 Results Follow-Up [facility] BARIATRIC SURGERY [address] [address] Angelika Pierre APRN [address] [place] [address] Social History Tobacco Use Types Packs/Day Years Used Date Smoking Tobacco: Never Passive Smoke Exposure: Never Smokeless Tobacco: Never Alcohol Use Standard Drinks/Week Comments Not Currently 0 (1 standard drink = 0.6 oz pur e alcohol) [facility] Utilities Answer Date Recorded In the past 12 months has [employer], gas, oil, or water [employer] threatened to shut off services in your [...] care, and heating? Not very hard 07/22/2025 [place] [facility] - Occupational Stress [...] GED or equivalent No 07/22/2025 Preferred Language Taiwanese 07/22/2025 PHQ-2 Answer Date Recorded Patient Health [...] Description 10/11/2025 11:30 AM EST Office Visit [facility] BARIATRIC SURGERY [address] [place] [address] [place] [address] Lesia Mcmillan MD [address] [place] [address] [place] [address] 11/29/2025 8:30 AM EST Appointment [facility] [address] [place] [address] 12/13/2025 11:00 AM EST Office Visit [facility] PULMONARY & CRITICAL CARE MEDICINE [address] [place] [phone] Mu Castillo, [address] [place] [address] documented as of this encounter Visit Diagnoses Not on filedocumented in this encounter Care Teams Section Laborer Relationship Specialty Start Date End Date Gavin Jo MD [address] [place] [address] PCP - General Internal Medicine 02/21/23 documented as of this encounter
--- OUTSIDE RECORDS SUMMARY | 2025-09-24 08:17 | XMS_ITS | Clinical Summary ---
Author Organization [facility] Address [address] [place] [address] Care Team Providers Care Media Clerk Name Role Phone Gavin Jo MD Primary Care Provider [phone] Allergies Active Allergy Reactions Criticality Noted Date Comments Clarithromycin Rash,GI Intolerance Low 02/17/2015 Happened in childhood Clindamycin Rash Low 08/29/2014 Happened in childhood Medications * This document contains information received from the source organization and may not represent a complete record from that organization. venlafaxine XR (EFFEXOR-XR) 150 MG 24 hr capsule Take 1 capsule by mouth Daily. 02/26/20 24 Active apixaban (ELIQUIS) 5 MG tablet tablet Take 1 tablet by mouth Every 12 (Twelve) Hours. 01/26/20 25 Active dilTIAZem CD (CARDIZEM CD) 240 MG 24 hr capsule Take 1 capsule by mouth Daily. 01/26/20 25 Active nystatin (MYCOSTATIN) 206728 UNIT/GM cream Apply 1 Application topically to the appropriate area as directed See Admin Instructions. Apply topically to the affected area twice daily 02/02/20 25 Active valsartan (DIOVAN) 160 MG tablet Take 1 tablet by mouth Daily. 01/12/20 25 Active ondansetron ODT (ZOFRAN-ODT) [address] 1 tablet on the tongue Every 4 (Four) Hours As Needed for Nausea. 10 tablet 10:47 AM EDT 07/24/20 Active Additional Information Patient not taking.Reported on 09/13/2025 Copper Gluconate 2 MG tabletIndications: Copper deficiency Take 8 mg by mouth Daily for 7 days, THEN 6 mg Daily for 7 days, THEN 4 mg Daily for 7 days, THEN 2 mg Daily for 69 days. 132 tablet 08/28/20 25 026 Active Cholecalciferol 1.25 MG (10572 UT) tabletIndications: Vitamin D deficiency Take 1 tablet by mouth 1 (One) Time Per Week. 12 tablet 08/28/20 25 Active Jardiance 25 MG tablet tablet Take 1 tablet by mouth Daily. 025 Discontin ued(*Ther apy completed ) rosuvastatin (CRESTOR) 5 MG tablet Take 1 tablet by mouth Daily. 025 Discontin ued(*Ther apy completed ) Cholecalciferol 1.25 MG (97168 UT) tablet Take 1 tablet by mouth 1 (One) Time Per Week. 12 tablet 02/08/20 25 025 Discontin ued(Reord er) oxyCODONE (Roxicodone) 5 MG immediate release tabletIndications: Morbid exogenous obesity Take 1 tablet by mouth Every 4 (Four) Hours As Needed for Moderate Pain. 10 tablet 5 10:47 AM EDT 07/24/20 25 025 Discontin ued(*Ther apy completed ) Active Problems Problem Noted Date Diagnosed Date Morbid exogenous obesity 07/09/2025 S/P laparoscopic sleeve gastrectomy 07/09/2025 Hypersomnia 03/09/2024 Insomnia 03/09/2024 Palpitations 01/13/2024 Chronic chest pain with low to moderate risk for CAD 01/13/2024 Hypertension Type 2 diabetes mellitus Hyperlipidemia Heartburn PVC's (premature ventricular contractions) Sleep apnea Atrial fibrillation Overview (02/05/2025): currently on cardigian talley. Follows w/ cardiology (Dr. Mendes, ) Lung nodule seen on imaging study Overview (02/05/2025): following w/ pulmonary Joint pain Overview (02/05/2025): prn tylenol Resolved Problems Problem Noted Date Diagnosed Date Resolved Date Hiatal hernia with gastroesophageal reflux 07/09/2025 07/19/2025 Encounters Date Type Department Care Team Description 09/13/2025 10:30 AM EST Office Visit [facility] [address] [place] [address] Theron Springer APRN Obesity, Class I, BMI 30-34.9 (Primary Dx); S/P laparoscopic sleeve gastrectomy; Copper deficiency 09/13/2025 8:11 AM EST - 09/13/2025 11:59 PM EST [facility] [address] [place] [address] Angelika Pierre APRN LUQ pain Discharge Disposition: Home or Self Care 09/13/2025 Documentation [facility] [address] [place] [address] 09/13/2025 Travel 09/10/2025 Telephone [facility] [address] [place] [address] 09/09/2025 Results Follow-Up [facility] [address] [place] [address] Angelika Pierre APRN 09/07/2025 10:20 AM EST Lab [facility] [address] [place] [address] LUQ pain 09/07/2025 Travel 09/03/2025 Telephone [facility] [address] [place] [address] Angelika Pierre APRN 09/02/2025 11:30 AM EST Office Visit [facility] [address] [place] [address] Angelika Pierre APRN LUQ pain (Primary Dx); Diarrhea, unspecified type 09/02/2025 Travel 08/28/2025 Results Follow-Up [facility] [address] [place] [address] Theron Springer APRN 08/16/2025 11:00 AM EDT Office Visit [facility] [address] [place] [address] Theron Springer APRN Obesity, Class II, BMI 35-39.9 (Primary Dx); Intestinal malabsorption, unspecified type; Abnormal blood level of iron; Vitamin D deficiency; Fatigue, unspecified type 08/16/2025 Travel 08/07/2025 Results Follow-Up [facility] [address] [place] [address] Angelika Pierre APRN 08/06/2025 12:30 PM EDT - 08/06/2025 11:59 PM EDT Hospital Encounter [facility] [address] [facility] [address] [place] [address] Angelika Pierre APRN Abdominal pain of multiple sites Discharge Disposition: Home or Self Care 08/06/2025 11:30 AM EDT Office Visit [facility] [address] [place] [address] Angelika Pierre APRN Obesity, Class II, BMI 35-39.9 (Primary Dx); Abdominal pain of multiple sites; Intestinal malabsorption, unspecified type; Fatigue, unspecified type 08/06/2025 Travel 07/31/2025 1:30 PM EDT Office Visit [facility] [address] [place] [address] Angelika Pierre APRN Postoperative visit (Primary Dx) 07/31/2025 Travel 07/24/2025 Readmission Management [facility] [address] [place] [address] Coral Greco RN 07/19/2025 12:26 PM EDT Anesthesia Event [facility] [address] [place] [address] Michael Fernandes Jr., MD Kramer, David P., MD 07/19/2025 11:53 AM EDT - 07/19/2025 4:08 PM EDT Surgery [facility] [address] [place] [address] Stewart Barriga MD BILIOPANCREATIC DIVERSION WITH DUODENAL SWITCH WITH DAVINCI ROBOT [63114 (CPT )] 07/19/2025 10:15 AM EDT Anesthesia Event Converted [facility] [address] [place] [address] 07/19/2025 8:13 AM EDT - 07/24/2025 12:55 PM EDT Hospital Encounter [facility] [address] [place] [address] Stewart Barriga MD Morbid exogenous obesity; S/P laparoscopic sleeve gastrectomy; Hiatal hernia with gastroesophageal reflux Discharge Disposition: Home or Self Care 07/19/2025 Travel 07/17/2025 Telephone [facility] [address] [place] [address] Jessica Lopez, MARTIN 07/12/2025 3:30 PM EDT Pre-Admission Testing [facility] [address] [place] [address] Laboratory test (Primary Dx); Morbid exogenous obesity; S/P laparoscopic sleeve gastrectomy; Hiatal hernia with gastroesophageal reflux 07/12/2025 Travel 07/12/2025 Telephone [facility] [address] [place] [address] Jessica Lopez, MARTIN 07/09/2025 1:30 PM EDT Consult [facility] [address] [place] [address] Stewart Barriga MD Morbid exogenous obesity (Primary Dx); S/P laparoscopic sleeve gastrectomy; Hiatal hernia with gastroesophageal reflux 07/08/2025 10:55 AM EDT Lab [facility] [place] [address] [facility] [address] [place] [address] Fatigue, unspecified type; Dyspnea, unspecified type 07/08/2025 Travel from Last 3 Months Family History Medical History Relation Name Comments Diabetes Father Heart attack Father Heart disease Father cause of @ 71 Hypertension Father Obesity Father Heart disease Maternal Grandmother cause of @ 65 Cancer Paternal Grandfather cause o f @ 65 Dementia Paternal Grandmother Relation Name Status Comments Brother Alive Father Maternal Grandfather Maternal Grandmother Mother Alive Paternal Grandfather Paternal Grandmother Social History Tobacco Use Types Packs/Day Years Used Date Smoking Tobacco: Never Passive Smoke Exposure: Never Smokeless Tobacco: Never Tobacco Cessation:Counseling Given: No Alcohol Use Standard Drinks/Week Comments Not Currently 0 (1 standard drink = 0.6 oz pur e alcohol) [employer] Answer Date Recorded In the past 12 months has [employer], oil, or water [employer] threatened to shut off services in your [...] care, and heating? Not very hard 07/22/2025 [facility] Occupat ional Health - Occupational Stress [...] GED or equivalent No 07/22/2025 Preferred Language Portuguese 07/22/2025 PHQ-2 Answer Date Recorded Patient Health Questionnaire-2 Score 0 07/22/2025 Comments No Sex and Gender Information Value Date Recorded Sex Assigned at Female 04/17/2025 11:38 AM EDT Legal Sex Female 1:04 PM EDT Gender Identity Not on file Sexual Orientation Straight 04/17/2025 11 :38 AM EDT Last Filed Vital Signs Vital Sign Reading [...] Mass Index 34.37 09/13/2025 10:14 AM EST Plan of Treatment Upcoming Encounters Date Type Department Care Team (Late st Contact Info) Description 10/11/2025 11:30 AM EST Office Visit [facility] [address] [place] [address] Lesia Mcmillan MD [address] [place] [address] 11/29/2025 8:30 AM EST Appointment [facility] AT [address] [phone] 12/13/2025 11:00 AM EST Office Visit [facility] [address] [place] [address] Mu Castillo DO [address] [place] [address] Health Maintenance Due Date Last Done Comments Annual Gynecologic Pelvic an d Breast Exam 1975 DIABETIC EYE EXAM 02/19/1986 DIABETIC FOOT EXAM 02/19/1986 URINE MICROALBUMIN-CREATININ E RATIO (uACR) 02/19/1986 Hepatitis B (1 of 3 - 19+ 3- dose series) 02/19/1995 Pneumococcal Vaccine 0-49 (1 of 2 - PCV) 02/19/1995 TDAP/TD VACCINES (1 - Tdap) 02/19/1995 ANNUAL PHYSICAL 10/24/2017 COLOGUARD 02/19/2021 COLON CANCER SCREENING 5 YEA R SIGMOIDOSCOPY 02/19/2021 CT COLONOGRAPHY 02/19/2021 FECAL OCCULT BLOOD TEST 02/19/2021 FIT Testing (1 year) 02/19/2021 MAMMOGRAM 04/19/2024 04/19/2022 INFLUENZA VACCINE 05/24/2025 11/17/2023, , 07/24/2020, Additional history exists HEMOGLOBIN A1C 01/09/2026 07/12/2025, 01/22, 12/13/2022, Additional history exists LIPID PANEL 02/05/2026 02/05/2025, 01/22, 02/05/2025, Additional history exists COLONOSCOPY 05/04/2034 05/04/2024, 09/0 11/2021, 10/24/2021 COLORECTAL CANCER SCREENING 05/04/2034 HEPATITIS C SCREENING Completed 06/13/2024 Medical Devices Implanted Type Area Tuck Pointer Helper Device Identifier Shelf Expiration Date Model / Serial / Lot Kt Seal Hemos Abs Floseal Matrx 1.5/Fast/Prep 5000/Iu 10ml - [id number] Implanted:Qty : 1 on 07/19/2025 by Stewart Barriga MD at [facility] Implant N/A: Abdomen [employer] [id number] 01/21/2027 [id number] / / [id number] Dev Cls Wnd Vloc/Pbt Lisa Nonabs 1/2cir Sz2/0 26mm 15cm Slava - [id number] Implanted:Qty : 5 on 07/19/2025 by Stewart Barriga MD at [facility] Implant N/A: Abdomen COVIDIEN [id number] 09/22/2027 [id number] / / [id number] Dev Contrl Tiss Stratafix Spiral Pds Pls 3/0 0 15cm Ta - [id number] Implanted:Qty : 2 on 07/19/2025 by Stewart Barriga MD at [facility] Implant N/A: Abdomen ETHICON DIV OF J AND J [id number] 05/23/2026 [id number] / / [id number] Reload Stplr Tiss Sureform/60 Davinci/X/Xi 6row 3.5 Slava 1p/U - [id number] Implanted:Qty : 1 on 07/19/2025 by Stewart Barriga MD at [facility] Implant N/A: Abdomen INTUITIVE SURGICAL [id number] 12/22/2027 [id number] / / [id number] Dev Contrl Tiss [employer] Spiral Pds Pls 3/0 0 15cm Ta - [id number] Implanted:Qty : 2 on 07/19/2025 by Stewart Barriga MD at [facility] Implant N/A: Abdomen ETHICON DIV OF J AND J 05/23/2026 [id number] / / [id number] Dev Contrl Tiss [employer] Spiral Pds Pls 3/0 0 15cm Ta - [id number] Implanted:Qty : 1 on 07/19/2025 by Stewart Barriga MD at [facility] Implant N/A: Abdomen ETHICON DIV OF J AND J 04/22/2026 [id number] / / [id number] Reload Stplr Tiss Sureform/60 Davinci/X/Xi 6row 2.5 Wht 1p/U - [id number] Implanted:Qty : 3 on 07/19/2025 by Stewart Barriga MD at [facility] Implant N/A: Abdomen INTUITIVE SURGICAL [id number] 02/21/2028 [id number] / / [id number] Procedures Procedure Name Priority Date/Time Associated Diagnosis Comments CT ABDOMEN PELVIS W CONTRAST STAT 9:09 AM EST LUQ pain CBC AND DIFFERENTIAL Routine 09/07/2025 10:21 AM EST LUQ pain CBC WITH AUTO DIFFERENTIAL Routine 09/07 10:21 AM EST LUQ pain COMPREHENSIVE METABOLIC PANEL Routine 10:21 AM EST LUQ pain CBC AND DIFFERENTIAL Routine 08/16/2025 11:27 AM EDT Obesity, Class II, BMI 35-39.9 Intestinal malabsorption, unspecified type Abnormal blood level of iron Vitamin D deficiency Fatigue, unspecified type CONV REQUEST PROBLEM Routine 08/16/2025 11:27 AM EDT ZINC Routine 08/16/2025 11:27 AM EDT Obesity, [...] unspecified type VITAMIN B1, WHOLE BLOOD Routine 08/16/20 11:27 AM EDT Obesity, Class II, BMI [...] iron Vitamin D deficiency Fatigue, unspecified type METHYLMALONIC ACID, SERUM Routine 2024 11:27 AM EDT Obesity, Class II, BMI [...] Fatigue, unspecified type COMPREHENSIVE METABOLIC PANEL Routine 11:27 AM EDT Obesity, Class II, BMI 35-39.9 Intestinal malabsorption, unspecified type Abnormal blood level of iron Vitamin D deficiency Fatigue, unspecified type CT ABDOMEN PELVIS W CONTRAST STAT 2:03 PM EDT Abdominal pain of multiple sites CBC AND DIFFERENTIAL Routine 08/06/2025 12:16 PM EDT Obesity, Class II, BMI 35-39.9 Intestinal malabsorption, unspecified type Fatigue, unspecified type PREALBUMIN Routine 08/06/2025 12:16 PM EDT Obesity, Class II, BMI 35-39.9 Intestinal malabsorption, unspecified type Fatigue, unspecified type COMPREHENSIVE METABOLIC PANEL Routine 12:16 PM EDT Obesity, Class II, BMI 35-39.9 Intestinal malabsorption, unspecified type Fatigue, unspecified type COMPREHENSIVE METABOLIC PANEL Routine 10:49 AM EDT CBC AND DIFFERENTIAL Routine 07/24/2025 9:02 AM EDT CBC WITH AUTO DIFFERENTIAL Routine 07/24 9:02 AM EDT POCT GLUCOSE FINGERSTICK Routine 7:46 AM EDT POCT GLUCOSE FINGERSTICK Routine 7:37 PM EDT POCT GLUCOSE FINGERSTICK Routine 4:53 PM EDT OSCILLATING POSITIVE EXPIRATORY PRESSURE (OPEP) Routine 07/23/2025 3:30 PM EDT OSCILLATING POSITIVE EXPIRATORY PRESSURE (OPEP) Routine 07/23/2025 11:31 AM EDT POCT GLUCOSE FINGERSTICK Routine 025 11:16 AM EDT CBC AND DIFFERENTIAL Routine 07/23/2025 10:29 AM EDT CBC WITH AUTO DIFFERENTIAL Routine 07/23 10:29 AM EDT COMPREHENSIVE METABOLIC PANEL Routine 10:29 AM EDT OSCILLATING POSITIVE EXPIRATORY PRESSURE (OPEP) Routine 07/23/2025 7:31 AM EDT POCT GLUCOSE FINGERSTICK Routine 025 6:57 AM EDT OSCILLATING POSITIVE EXPIRATORY PRESSURE (OPEP) Routine 07/22/2025 11:30 PM EDT OSCILLATING POSITIVE EXPIRATORY PRESSURE (OPEP) Routine 07/22/2025 7:30 PM EDT POCT GLUCOSE FINGERSTICK Routine 025 7:13 PM EDT POCT GLUCOSE FINGERSTICK Routine 025 4:05 PM EDT OSCILLATING POSITIVE EXPIRATORY PRESSURE (OPEP) Routine 07/22/2025 3:30 PM EDT OSCILLATING POSITIVE EXPIRATORY PRESSURE (OPEP) Routine 07/22/2025 11:31 AM EDT POCT GLUCOSE FINGERSTICK Routine 025 11:13 AM EDT CBC AND DIFFERENTIAL Routine 07/22/2025 8:16 AM EDT CBC WITH AUTO DIFFERENTIAL Routine 07/22 8:16 AM EDT COMPREHENSIVE METABOLIC PANEL Routine 8:16 AM EDT OSCILLATING POSITIVE EXPIRATORY PRESSURE (OPEP) Routine 07/22/2025 7:31 AM EDT POCT GLUCOSE FINGERSTICK Routine 025 6:56 AM EDT OSCILLATING POSITIVE EXPIRATORY PRESSURE (OPEP) Routine 07/21/2025 11:30 PM EDT PROTIME-INR Routine 07/21/2025 8:13 PM EDT POCT GLUCOSE FINGERSTICK Routine 7:39 PM EDT OSCILLATING POSITIVE EXPIRATORY PRESSURE (OPEP) Routine 07/21/2025 7:30 PM EDT POCT GLUCOSE FINGERSTICK Routine 025 4:10 PM EDT OSCILLATING POSITIVE EXPIRATORY PRESSURE (OPEP) Routine 07/21/2025 3:30 PM EDT OSCILLATING POSITIVE EXPIRATORY PRESSURE (OPEP) Routine 07/21/2025 11:30 AM EDT POCT GLUCOSE FINGERSTICK Routine 11:05 AM EDT POCT GLUCOSE FINGERSTICK Routine 7:45 AM EDT OSCILLATING POSITIVE EXPIRATORY PRESSURE (OPEP) Routine 07/21/2025 7:30 AM EDT CBC AND DIFFERENTIAL Routine 07/21/2025 6:31 AM EDT CBC WITH AUTO DIFFERENTIAL Routine 07/21 6:31 AM EDT COMPREHENSIVE METABOLIC PANEL Routine 6:30 AM EDT OSCILLATING POSITIVE EXPIRATORY PRESSURE (OPEP) Routine 07/20/2025 11:30 PM EDT POCT GLUCOSE FINGERSTICK Routine 025 9:10 PM EDT MRI ABDOMEN WO CONTRAST MRCP STAT 7:38 PM EDT OSCILLATING POSITIVE EXPIRATORY PRESSURE (OPEP) Routine 07/20/2025 7:30 PM EDT POCT GLUCOSE FINGERSTICK Routine 025 4:35 PM EDT OSCILLATING POSITIVE EXPIRATORY PRESSURE (OPEP) Routine 07/20/2025 3:30 PM EDT BILIRUBIN, DIRECT STAT 07/20/2025 12:53 PM EDT COMPREHENSIVE METABOLIC PANEL STAT 12:53 PM EDT POCT GLUCOSE FINGERSTICK Routine 025 12:11 PM EDT OSCILLATING POSITIVE EXPIRATORY PRESSURE (OPEP) Routine 07/20/2025 11:30 AM EDT CBC AND DIFFERENTIAL Routine 07/20/2025 9:46 AM EDT CBC WITH AUTO DIFFERENTIAL Routine 07/20 9:46 AM EDT PREALBUMIN Routine 07/20/2025 9:46 AM EDT IRON Routine 07/20/2025 9:46 AM EDT COMPREHENSIVE METABOLIC PANEL Routine 9:[address] ABDOMEN PELVIS W CONTRAST STAT 8:34 AM EDT OSCILLATING POSITIVE EXPIRATORY PRESSURE (OPEP) Routine 07/20/2025 7:30 AM EDT POCT GLUCOSE FINGERSTICK Routine 025 7:10 AM EDT OSCILLATING POSITIVE EXPIRATORY PRESSURE (OPEP) Routine 07/19/2025 11:30 PM EDT POCT GLUCOSE FINGERSTICK Routine 025 9:25 PM EDT POCT GLUCOSE FINGERSTICK Routine 025 8:10 PM EDT OSCILLATING POSITIVE EXPIRATORY PRESSURE (OPEP) Routine 07/19/2025 7:30 PM EDT OSCILLATING POSITIVE EXPIRATORY PRESSURE (OPEP) Routine 07/19/2025 3:30 PM EDT OSCILLATING POSITIVE EXPIRATORY PRESSURE (OPEP) Routine 07/19/2025 3:25 PM EDT OSCILLATING POSITIVE EXPIRATORY PRESSURE (OPEP) Routine 07/19/2025 3:25 PM EDT OSCILLATING POSITIVE EXPIRATORY PRESSURE (OPEP) Routine 07/19/2025 3:25 PM EDT OSCILLATING POSITIVE EXPIRATORY PRESSURE (OPEP) Routine 07/19/2025 3:25 PM EDT OSCILLATING POSITIVE EXPIRATORY PRESSURE (OPEP) Routine 07/19/2025 3:25 PM EDT TISSUE PATHOLOGY EXAM Routine 07/19/2025 3:11 PM EDT Morbid exogenous obesity S/P laparoscopic sleeve gastrectomy Hiatal hernia with gastroesophageal reflux ANESTHESIA INTUBATION Routine 07/19/2025 12:49 PM EDT ANESTHESIA PERIPHERAL BLOCK Routine 06/25 12:33 PM EDT TYPE AND SCREEN STAT 07/19/2025 12:24 PM EDT LIVER BIOPSY LAPAROSCOPIC 2024 12:10 PM EDT Morbid exogenous obesity S/P laparoscopic sleeve gastrectomy Hiatal hernia with gastroesophageal reflux Special Needs * NH ESOPHAGOGASTRODUODENOSCOP Y TRANSORAL DIAGNOSTIC 07/19/2025 12:10 PM EDT Morbid exogenous obesity S/P laparoscopic sleeve gastrectomy Hiatal hernia with gastroesophageal reflux Special Needs * LAPAROSCOPIC HIATAL HERNIA REPAIR WITH DAVINCI ROBOT 07/19/2025 12:10 PM EDT Morbid exogenous obesity S/P laparoscopic sleeve gastrectomy Hiatal hernia with gastroesophageal reflux Special Needs * NH GASTRIC RSTCV W/PRTL GASTRECTOMY 50-100 CM 07/19/2025 12:10 PM EDT Morbid exogenous obesity S/P laparoscopic sleeve gastrectomy Hiatal hernia with gastroesophageal reflux Special Needs * POCT GLUCOSE FINGERSTICK Routine 025 9:31 AM EDT ABORH 2ND SPECIMEN VERIFICATION Routine 07/12/2025 3:21 PM EDT Laboratory test PROTIME-INR Routine 07/12/2025 3:13 PM EDT CBC (NO DIFF) Routine 07/12/2025 3:13 PM EDT HEMOGLOBIN A1C Routine 07/12/2025 3:13 PM EDT POTASSIUM Routine 07/12/2025 3:13 PM EDT MRSA SCREEN Routine 07/12/2025 3:13 PM EDT Morbid exogenous obesity S/P laparoscopic sleeve gastrectomy Hiatal hernia with gastroesophageal reflux COMPREHENSIVE METABOLIC PANEL Routine 10:58 AM EDT Fatigue, unspecified type Dyspnea, unspecified type CBC (NO DIFF) Routine 07/08/2025 10:58 AM EDT Fatigue, unspecified type Dyspnea, unspecified type LIPID PANEL Routine 02/05/2025 11:26 AM EDT Obesity, Class II, BMI 35-39.9 Primary hypertension Type 2 diabetes mellitus without complication, without long-term current use of insulin Obstructive sleep apnea syndrome Heartburn Fatigue, unspecified type from Last 3 Months or Most Recently Relevant to Health Maintenance Results * CT Abdomen Pelvis With Contrast (09/13/2025 9:09 AM EST) Only the most recent of3 resultswithin the time period is included. Anatomical Region Laterality Modality Abdomen, Pelvis N/A Computed Tomogra phy 09/13/2025 9:19 AM EST Impressions 09/13/2025 9:50 AM EST Impression: No acute findings in the abdomen or pelvis. Stable chronic/ancillary findings as above. Electronically Signed: Joseph Leone MD 09/13/2025 9:50 AM EST Workstation ID: [id number] Narrative 09/13/2025 9:[address] ABDOMEN [...] MD 09/13/2025 9:50 AM EST Workstation ID: [id number] Angelika Pierre APRN IMG CT ORDERABLES Final Result * CBC Auto Differential (09/07/2025 10:21 AM EST) Only the most recent of6 resultswithin the time period is included. WBC 7.06 3.40 - 10.80 10*3/mm3 09/07/2025 8:36 PM [facility] RBC 4.43 3.77 - 5.28 10*6/mm3 09/07/2025 8:36 PM [facility] Hemoglobin 13.1 12.0 - 15.9 g/dL 09/07/2025 8:36 PM [facility] Hematocrit 40.6 34.0 - 46.6 % 09/07/2025 8:36 PM [facility] MCV 91.6 79.0 - 97.0 fL 09/07/2025 8:36 PM [facility] MCH 29.6 26.6 - 33.0 pg 09/07/2025 8:36 PM [facility] MCHC 32.3 31.5 - 35.7 g/dL 09/07/2025 8:36 PM [facility] RDW 14.0 12.3 - 15.4 % 09/07/2025 8:36 PM [facility] RDW-SD 47.5 37.0 - 54.0 fl 09/07/2025 8:36 PM [facility] MPV 11.2 6.0 - 12.0 fL 09/07/2025 8:36 PM [facility] Platelets 198 140 - 450 10*3/mm3 09/07/2025 8:36 PM [facility] Neutrophil % 58.8 42.7 - 76.0 % 09/07/2025 8:36 PM [facility] Lymphocyte % 27.5 19.6 - 45.3 % 09/07/2025 8:36 PM [facility] Monocyte % 9.8 5.0 - 12.0 % 09/07/2025 8:36 PM [facility] Eosinophil % 3.1 0.3 - 6.2 % 09/07/2025 8:36 PM [facility] Basophil % 0.4 0.0 - 1.5 % 09/07/2025 8:36 PM [facility] Immature Grans % 0.4 0.0 - 0.5 % 09/07/2025 8:36 PM [facility] Neutrophils, Absolute 4.15 1.70 - 7.00 10*3/mm3 09/07/2025 8:36 PM [facility] Lymphocytes, Absolute 1.94 0.70 - 3.10 10*3/mm3 09/07/2025 8:36 PM [facility] Monocytes, Absolute 0.69 0.10 - 0.90 10*3/mm3 09/07/2025 8:36 PM [facility] Eosinophils, Absolute 0.22 0.00 - 0.40 10*3/mm3 09/07/2025 8:36 PM [facility] Basophils, Absolute 0.03 0.00 - 0.20 10*3/mm3 09/07/2025 8:36 PM [facility] Immature Grans, Absolute 0.03 0.00 - 0.05 10*3/mm3 09/07/2025 8:36 PM [facility] nRBC 0.0 0.0 - 0.2 /100 WBC 09/07/2025 8:36 PM [facility] Blood Venipuncture / Unknown 09/07/2025 10:21 AM EST 09/07/2025 10:21 AM EST us Angelika Pierre [facility] BLOOD ORDERABLES Final Res ult [facility]
[address] [place] [address], [place] [phone] * (ABNORMAL) Comprehensive Metabolic Panel (09/07/2025 10:21 AM EST) Only the most recent of10 resultswithin the time period is included. Glucose 117(H) 65 - 99 mg/dL 09/07/2025 8:57 PM [facility] BUN 12.0 6.0 - 20.0 mg/dL 09/07/2025 8:57 PM [facility] Creatinine 0.49(L) 0.57 - 1.00 mg/dL 09/07/2025 8:57 PM [facility] Sodium 142 136 - 145 mmol/L 09/07/2025 8:57 PM [facility] Potassium 3.3(L) 3.5 - 5.2 mmol/L 09/07/2025 8:57 PM [facility] Chloride 106 98 - 107 mmol/L 09/07/2025 8:57 PM [facility] CO2 23.2 22.0 - 29.0 mmol/L 09/07/2025 8:57 PM [facility] Calcium 9.2 8.6 - 10.5 mg/dL 09/07/2025 8:57 PM [facility] Total Protein 6.9 6.0 - 8.5 g/dL 09/07/2025 8:57 PM [facility] Albumin 3.8 3.5 - 5.2 g/dL 09/07/2025 8:57 PM [facility] ALT (SGPT) 32 1 - 33 U/L 09/07/2025 8:57 PM [facility] AST (SGOT) 31 1 - 32 U/L 09/07/2025 8:57 PM [facility] Alkaline Phosphatase 80 39 - 117 U/L 09/07/2025 8:57 PM EST [facility] Total Bilirubin 0.5 0.0 - 1.2 mg/dL 09/07/2025 8:57 PM [facility] Globulin 3.1 gm/dL 09/07/2025 8:57 PM [facility] A/G Ratio 1.2 g/dL 09/07/2025 8:57 PM EST [facility] BUN/Creatinine Ratio 24.5 7.0 - 25.0 09/07/2025 8:57 PM [facility] Anion Gap 12.8 5.0 - 15.0 mmol/L 09/07/2025 8:57 PM [facility] eGFR 115.7 >60.0 mL/min/1.7 3 09/07/2025 8:57 PM [facility] Blood Venipuncture / Unknown 09/07/2025 10:21 AM EST 09/07/2025 10:21 AM EST [facility] - 09/07/2025 8:57 PM EST GFR [...] race as a factor us Angelika Pierre APRN LAB BLOOD ORDERABLES Final Res ult [facility]
[address] [place] [address], * Request Problem (08/16/2025 11:27 AM EDT) Request Problem CANCELED [facility] Comment: [facility] was unable to collect sufficient specimen to perform the following test(s), and is providing the patient with re-collection instructions. TEST: 101435 Vitamin B1 (Thiamine), Blood Requires: frozen, edta whole blood (from lavender top tube) Result canceled by the ancillary. 08/16/2025 11:2 7 AM EDT 08/16/2025 Narrative [facility] - 08/27/2025 8:11 AM EST Performed at: - [address] [id number] [employer] Machine Operator: Von Alcala PhD, Phone: [phone] Patient Fasting: N Theron Springer LENS DOTTER LAB BLOOD ORDERABLES Edited Re sult - Final Performing Organization Address [facility] de Phone Number [facility]) [address] [place] [address], [facility] [address] [place] [address], * Methylmalonic Acid, Serum (08/16/2025 11:27 AM EDT) Methylmalonic Acid 86 0 - 378 nmol/L [facility] Blood 08/16/2025 11:2 7 AM EDT 08/16/2025 [facility]) - 08/27/2025 8:11 AM EST Test(s) 016808-Sulhjarxcivud Acid, Serum was developed and its performance characteristics determined by [facility]. It has not been cleared or approved by the Food and Drug Administration. Performed at: - [address] [id number] [employer] Operator: Rebekah Neal MD, Phone: [phone] Patient Fasting: N Theron Springer LENS DOTTER LAB BLOOD ORDERABLES Final Res ult Performing Organization Address [facility] Co de Phone Number [facility]) [address] [place] [address], [place] [phone] [facility] [address] [place] [address], [place] [phone] * (ABNORMAL) Copper, Serum (08/16/2025 11:27 AM EDT) Copper 67(L) 80 - 158 ug/dL [facility] Comment:Detection Limit = 5 Blood 08/16/2025 11:2 7 AM EDT 08/16/2025 [facility] ([facility]UL[facility]) - 08/27/2025 8:11 AM EST Test(s) 774781-Dkbunu, Serum or Plasma was developed and its performance characteristics determined by [facility]. It has not been cleared or approved by the Food and Drug Administration. Performed at: - [address] [id number] [employer] Operator: Rebekah Neal MD, Phone: [phone] Patient Fasting: N us Theron Springer LENS DOTTER LAB BLOOD ORDERABLES Final Res ult [facility] (AMBULATORY) [address] [place] [address], [place] [phone] [facility] [address] [place] [address], [place] [phone] * Vitamin B1, Whole Blood (08/16/2025 11:27 AM EDT) Vitamin B1, Whole Blood CANCELED nmol/L [facility] specimen to perform the following test(s), and is providing the patient with re-collection instructions. Requires: frozen, edta whole blood (from lavender top tube) Result canceled by the ancillary. Blood 08/16/2025 11:2 7 AM EDT 08/16/2025 [facility] ([facility]) - 08/27/2025 8:11 AM EST Test(s) 177039-Mgf. B1, Whole Blood was developed and its performance characteristics determined by [facility]. It has not been cleared or approved by the Food and Drug Administration. Performed at: - [address] [place] [id number] [employer] Operator: Rebekah Neal MD, Phone: [phone] Patient Fasting: N us Theron Springer LENS DOTTER LAB BLOOD ORDERABLES Edited Re sult - Final Performing Organization Address [facility] de Phone Number [facility] [address] [place] [address], [place] [phone] [facility] [address] [place] [address], [place] [phone] * Zinc (08/16/2025 11:27 AM EDT) Zinc 86 44 - 115 ug/dL [facility] Comment:Detection Limit = 5 Blood 08/16/2025 11:2 7 AM EDT 08/16/2025 Narrative [facility] - 08/27/2025 8:11 AM EST Test(s) 543988-Fjqq, Plasma or Serum was developed and its performance characteristics determined by [facility]. It has not been cleared or approved by the Food and Drug Administration. Performed at: 02 - [address] [id number] [employer] Operator: Rebekah Neal MD, Phone: [phone] Patient Fasting: N us Theron Springer LENS DOTTER LAB BLOOD ORDERABLES Final Res ult Performing Organization Address [facility] de Phone Number [facility]) [address] [place] [address], [place] [phone] [facility] [address] [place] [address], [place] [phone] * Vitamin A (08/16/2025 11:27 AM EDT) Vitamin A 25.9 20.1 - 62.0 ug/dL [facility] Comment: Reference intervals for vitamin A determined from [facility] internal studies. Individuals with vitamin A less than 20 ug/dL are considered vitamin A deficient and those with serum concentrations less than 10 ug/dL are considered severely deficient. This test was developed and its performance characteristics determined by [facility]. It has not been cleared or approved by the Food and Drug Administration. Blood 08/16/2025 11:2 7 AM EDT 08/16/2025 Narrative [facility] ([facility]) - 08/27/2025 8:11 AM EST Performed at: - [address] [id number] [employer] Operator: Rebekah Neal MD, Phone: [phone] Patient Fasting: N [facility] BLOOD ORDERABLES Final Res ult Performing Organization Address [facility] Co de Phone Number [facility] ([facility]) [address] [place] [address], [facility] [address] [place] [address], * (ABNORMAL) Vitamin K1 (08/16/2025 11:27 AM EDT) Vitamin K <0.10(L) 0.10 - 2.20 ng/mL [facility] Blood 08/16/2025 11:2 7 AM EDT 08/16/2025 Narrative [facility] ([facility]) - 08/27/2025 8:11 AM EST Test(s) 137308-Rcsoksy K1 was developed and its performance characteristics determined by [facility]. It has not been cleared or approved by the Food and Drug Administration. Performed at: - [address] [id number] [employer] Machine Operator: Rebekah Neal MD, Phone: [phone] Patient Fasting: N Theron A Springer LENS DOTTER LAB BLOOD ORDERABLES Final Res ult Performing Organization Address [facility] Co de Phone Number [facility] ([facility]) [address] [place] [address], [place] [phone] [facility] [address] [place] [address], [place] [phone] * Vitamin D,25-Hydroxy (08/16/2025 11:27 AM EDT) 25 Hydroxy, Vitamin D 30.4 30.0 - 100.0 ng/mL [facility] Comment: Vitamin D deficiency has been defined by the [place] of Medicine and an Endocrine Society practice guideline as a level of serum 25-OH vitamin D less than 20 ng/mL (1,2). The Endocrine Society went on to further define vitamin D insufficiency as a level between 21 and 29 ng/mL (2). 1. IOM ([place] of Medicine). 2010. Dietary reference intakes for calcium and D. [place]: The National Academies Press. 2. Arabella MF, Georgie MOROCHO, Aubrey SCHMITT, et al. Evaluation, treatment, and prevention of vitamin D deficiency: an Endocrine Society clinical practice guideline. JCEM. 2010; 96(7):1911-30. Blood 08/16/2025 11:2 7 AM EDT 08/16/2025 Narrative [facility] ([facility]) - 08/27/2025 8:11 AM EST Performed at: - [facility] [id number] [employer] Operator: Von Alcala PhD, Phone: [phone] Patient Fasting: N us Theron Springer APRN LAB BLOOD ORDERABLES Final Res ult [facility]) [address] [place] [address], [facility] [address] [place] [address], * Protime-INR (08/16/2025 11:27 AM EDT) Only the most recent of3 resultswithin the time period is included. INR 1.1 0.9 - 1.2 [facility] Comment: Reference interval is for non-anticoagulated patients. Suggested INR therapeutic range for Vitamin K antagonist therapy: Standard Dose (moderate intensity therapeutic range): 2.0 - 3.0 Higher intensity therapeutic range 2.5 - 3.5 Protime 11.4 9.1 - 12.0 sec [facility] Blood 08/16/2025 11:2 7 AM EDT 08/16/2025 Narrative [facility] ([facility]) - 08/27/2025 8:11 AM EST Performed at: 01 - [facility] [address] [place], [place] [id number] [employer] Operator: Von Alcala PhD, Phone: [phone] Patient Fasting: N us Theron Springer LENS DOTTER LAB BLOOD ORDERABLES Final Res ult [facility] ([facility]ORY) [address] [place] [address], [facility] [address] [place] [address], * (ABNORMAL) CBC & Differential (08/16/2025 11:27 AM EDT) Only the most recent of2 resultswithin the time period is included. WBC 6.5 3.4 - 10.8 x10E3/uL [facility] [...] Blood 08/16/2025 11:2 7 AM EDT 08/16/2025 [facility] ([facility]) - 08/27/2025 8:11 AM EST Performed at: 01 - [address] [id number] [employer] M[employer] Machine Operator: Von Alcala PhD, Phone: [phone] Patient Fasting: N Theron Springer LENS DOTTER LAB BLOOD ORDERABLES Final Res ult [facility] [address] [place] [address], [facility] [address] [place] [address], * Vitamin E (08/16/2025 11:27 AM EDT) [facility] Vitamin E (Alpha Tocopherol) 10.5 7.0 - 25.1 mg/L [facility] Vitamin E (Gamma Tocopherol) 1.1 0.5 - 5.5 mg/L [facility] Comment: Reference intervals for alpha and gamma-tocopherol determined from National Health and Nutrition Examination Survey, 5100-9150. Individuals with alpha-tocopherol levels less than 5.0 mg/L are considered vitamin E deficient. Blood 08/16/2025 11:2 7 AM EDT 08/16/2025 [facility] ([facility]) - 08/27/2025 8:11 AM EST Test(s) 578677-Evtldkx E(Alpha Tocopherol); 534479- Vitamin E(Gamma Tocopherol) was developed and its performance characteristics determined by [facility]. It has not been cleared or approved by the Food and Drug Administration. Performed at: 02 - [address], [place] [id number] [employer] Molding Machine Operator: Rebekah Neal MD, Phone: [phone] Patient Fasting: N Theron Ontiveros Springer LENS DOTTER LAB BLOOD ORDERABLES Final Res ult Performing Organization Address [facility]/ZIP Co de Phone Number [facility] ([facility]UL[facility]) [address] [place] [address], [facility] [address] [place] [address], [place] [phone] * Prealbumin (08/16/2025 11:27 AM EDT) Only the most recent of3 resultswithin the time period is included. Prealbumin 16 12 - 34 mg/dL [facility] Blood 08/16/2025 11:2 7 AM EDT 08/16/[address] [facility] ([facility]) - 08/27/2025 8:11 AM EST Performed at: - [address] [id number] [employer] M[employer] Machine Operator: Von Alcala PhD, Phone: [phone] Patient Fasting: N Theron Springer LENS DOTTER LAB BLOOD ORDERABLES Final Res ult Performing Organization Address [facility] Co de Phone Number [facility] ([facility]) [address] [place] [address], [facility] [address] [place] [address], * Phosphorus (08/16/2025 11:27 AM EDT) Phosphorus 3.7 3.0 - 4.3 mg/dL [facility] Blood 08/16/2025 11:2 7 AM EDT 08/16/2025 Narrative [facility] ([facility]) - 08/27/2025 8:11 AM EST Performed at: - [address] [id number] [employer] M[employer] Machine Operator: Von Alcala PhD, Phone: [phone] Patient Fasting: N us Theron Springer LENS DOTTER LAB BLOOD ORDERABLES Final Res ult Performing Organization Address City/[facility] Co de Phone Number [facility] ([facility]UL[facility]) [address] [place] [address], [place] [phone] [facility] [address] [place] [address], [place] [phone] * PTH, Intact (08/16/2025 11:27 AM EDT) PTH, Intact 47 15 - 65 pg/mL [facility] Blood 08/16/2025 11:2 7 AM EDT 08/16/2025 Narrative [facility] ([facility]) - 08/27/2025 8:11 AM EST Performed at: [address] [id number] [employer] M[employer] Machine Operator: Von Alcala PhD, Phone: [phone] Patient Fasting: N Theron Springer LENS DOTTER LAB BLOOD ORDERABLES Final Res ult Performing Organization Address [facility] de Phone Number [facility] ([facility]UL[facility]) [address] [place] [address], [place] [phone] [facility] [address] [place] [address], [place] [phone] * Magnesium (08/16/2025 11:27 AM EDT) Magnesium 1.8 1.6 - 2.3 mg/dL [facility] Blood 08/16/2025 11:2 7 AM EDT 08/16/2025 Narrative [facility] ([facility]) - 08/27/2025 8:11 AM EST Performed at: [address] [id number] [employer] Machine Operator: Von Alcala PhD, Phone: [phone] Patient Fasting: N us Crump A Springer LENS DOTTER LAB BLOOD ORDERABLES Final Res ult Performing Organization Address [facility]/ZIP Co de Phone Number [facility] ([facility]) [address] [place] [address], [facility] [address] [place] [address], * Iron (08/16/2025 11:27 AM EDT) Only the most recent of2 resultswithin the time period is included. Iron 45 27 - 159 ug/dL [facility] Blood 08/16/2025 11:2 7 AM EDT 08/16/2025 Narrative [facility] ([facility]) - 08/27/2025 8:11 AM EST Performed at: - [address] [id number] [employer] M[employer] Machine Operator: Von Alcala PhD, Phone: [phone] Patient Fasting: N Theron Ontiveros Springer LENS DOTTER LAB BLOOD ORDERABLES Final Res ult Performing Organization Address [facility] de Phone Number [facility] [address] [place] [address], [facility] [address] [place] [address], * Folate (08/16/2025 11:27 AM EDT) Pathologist [facility] Folate 4.3 >3.0 ng/mL [facility] Comment: A serum folate concentration of less than 3.1 ng/mL is considered to represent clinical deficiency. Blood 08/16/2025 11:2 7 AM EDT 08/16/2025 Narrative [facility] ([facility]) - 08/27/2025 8:11 AM EST Performed at: - [address] [id number] [employer] Machine Operator: Von Alcala PhD, Phone: [phone] Patient Fasting: N Theron Springer LENS DOTTER LAB BLOOD ORDERABLES Final Res ult Performing Organization Address [facility] Co de Phone Number [facility] ([facility]) [address] [place] [address], [place] [phone] [facility] [address] [place] [address], [place] [phone] * Ferritin (08/16/2025 11:27 AM EDT) Ferritin 124 15 - 150 ng/mL [facility] Blood 08/16/2025 11:2 7 AM EDT 08/16/2025 Narrative [facility] ([facility]) - 08/27/2025 8:11 AM EST [facility]formed [facility]: [facility] [address] [place], [place] [id number] [employer] Machine Operator: Von Alcala PhD, Phone: [phone] Patient Fasting: N Theron Springer LENS DOTTER LAB BLOOD ORDERABLES Final Res ult Performing Organization Address [facility]/ZIP Co de Phone Number [facility] ([facility]) [address] [place] [address], [place] [phone] [facility] [address] [place] [address], [place] [phone] * POC Glucose TID AC (07/24/2025 7:46 AM EDT) Only the most recent of20 resultswithin the time period is included. Glucose 86 70 - 130 mg/dL 07/24/2025 7:48 AM EDT [facility] Comment:Serial Number: [id number]: [id number] Blood 07/24/2025 7:46 AM EDT 07/24/2025 7:48 AM EDT Stewart Barriga MD POINT OF CARE TEST ORDERAB LES Final Result [facility]
[address] [place] [address], [place] [phone] * MRI abdomen wo contrast mrcp (07/20/2025 7:38 PM EDT) Anatomical Region Laterality Modality Body Magnetic Resonan ce 07/20/2025 7:56 PM EDT Impressions 07/20/2025 8:08 PM EDT Impression: 1. Moderate intrahepatic biliary dilatation in the left hepatic lobe with dilated common bile duct measuring 12 mm. The mid and distal CBD are filled with debris/sludge. Recommend ERCP. 2. Postsurgical changes of recent duodenal switch better assessed on recent CT. No postoperative fluid collection in the upper abdomen. 3. Additional incidental findings above. Electronically Signed: Hank Garcia MD 07/20/2025 8:08 PM EDT Workstation ID: [id number] Narrative 07/20/2025 8:08 PM EDT MRI ABDOMEN WO CONTRAST [facility] Date of Exam: 07/20/2025 7:06 PM EDT Indication: New hyperbilirubinemia. Comparison: CT abdomen and pelvis 07/20/2025 Technique: Routine multiplanar/multisequence images of the abdomen were obtained with MRCP sequences without contrast administration. Findings: Lung bases demonstrate atelectasis at the left lung base abutting the diaphragm unchanged. No significant effusion. Cardiomegaly. No pericardial effusion. Liver is normal in size and contour. There is moderate intrahepatic biliary ductal dilatation most pronounced in the left hepatic lobe. The gallbladder is absent. The common bile duct is dilated proximally to 12 mm (3/15). The mid and distal CBD is filled with T2 hypointense material likely debris/sludge (6/23). The spleen is normal in size. Adrenal glands are without acute abnormality. The kidneys are symmetric in size. There is a small cyst at the left kidney measuring 6 mm. No hydronephrosis. The pancreas is normal in T1 signal intensity. No findings to indicate acute pancreatitis. No pancreatic main duct dilatation. There are postoperative changes of recent duodenal switch better assessed on the recent CT. There is a surgical drainage catheter noted in the left upper abdomen. No organized postoperative fluid collection. No dilated bowel loops to indicate obstruction. Normal appendix. Procedure Note Hank Garcia MD - 07/20/2025 MRI ABDOMEN WO CONTRAST [facility] Date of Exam: 07/20/2025 7:06 PM EDT Indication: New hyperbilirubinemia. Comparison: CT abdomen and pelvis 07/20/2025 Technique: Routine multiplanar/multisequence images of the abdomen wereobtained with MRCP sequences without contrast administration. Findings: Lung bases demonstrate atelectasis at the left lung base abutting thediaphragm unchanged. No significant effusion. Cardiomegaly. No pericardialeffusion. Liver is normal in size and contour. There is moderate intrahepaticbiliary ductal dilatation most pronounced in the left hepatic lobe. Thegallbladder is absent. The common bile duct is dilated proximally to 12 mm(3/15). The mid and distal CBD is filled with T2 hypointense material likely debris/sludge (6/23). The spleen is normal in size. Adrenal glands are without acuteabnormality. The kidneys are symmetric in size. There is a small cyst at the leftkidney measuring 6 mm. No hydronephrosis. The pancreas is normal in T1 signal intensity. No findings to indicateacute pancreatitis. No pancreatic main duct dilatation. There are postoperative changes of recent duodenal switch better assessedon the recent CT. There is a surgical drainage catheter noted in the leftupper abdomen. No organized postoperative fluid collection. No dilatedbowel loops to indicate obstruction. Normal appendix. IMPRESSION: Impression: 1. Moderate intrahepatic biliary dilatation in the left hepatic lobe withdilated common bile duct measuring 12 mm. The mid and distal CBD arefilled with debris/sludge. Recommend ERCP. 2. Postsurgical changes of recent duodenal switch better assessed onrecent CT. No postoperative fluid collection in the upper abdomen. 3. Additional incidental findings above. Electronically Signed: Hank Garcia MD 07/20/2025 8:08 PM EDT Workstation ID: [id number] [facility] Shahida Mcmillan MD [facility] MRI ORDERABLES Final Result * (ABNORMAL) Bilirubin, Direct (07/20/2025 12:53 PM EDT) Bilirubin, Direct 6.0(H) 0.0 - 0.3 mg/dL 07/20/2025 1:32 PM EDT [facility] Comment:Specimen hemolyzed. Results may be affected. Blood Venipuncture / Unknown 07/20/2025 12:53 PM EDT 07/20/2025 1:03 PM EDT Lesia Mcmillan MD LAB BLOOD ORDERABLES Fin al Result [facility]
[address] [place] [address], * Tissue Pathology Exam (07/19/2025 3:11 PM EDT) Case Report Surgical Pathology Report Case: [id number] Authorizing Provider: Stewart Barriga MD Collected: 07/19/2025 03:11 PM [facility]ing [facility] Received: 07/22/2025 06:27 AM OR Pathologist: Ashley Glover MD Specimen: Liver, LIVER BIOPSY FOR PERMANENT 07/23/2025 3:45 PM EDT [facility] Clinical Information Morbid exogenous obesity S/P laparoscopic sleeve gastrectomy Hiatal hernia with gastroesophageal reflux 07/23/2025 3:45 PM EDT [facility] Final Diagnosis Liver, biopsy: Patchy mild chronic portal inflammation Focal bile duct proliferation of uncertain significance Minimal macrovesicular steatosis (less than 5% of the submitted tissue) without features of steatohepatitis No identified iron deposition No identified dysplasia or malignancy 07/23/2025 3:45 PM EDT [facility] at 1545 EDT Comment Histologic sections demonstrate a sufficient number of portal tracts for review. The portal tracts show limited chronic inflammation in the form of lymphocytes without significant interface activity. The bile ducts are intact and demonstrate a single focus of proliferation of uncertain significance. The lobules show no significant inflammation. There is minimal steatosis (less than 5% of the submitted tissue) without balloon cell degeneration. No Talisha's hyalin or acidophil bodies are identified. A trichrome stain shows no significant fibrosis. An iron stain shows no significant iron deposition. All of the special stain controls stained appropriately. 07/23/2025 3:45 PM EDT [facility] [facility] Gross Description 1. Liver. Received in formalin labeled liver biopsy for permanent are multiple cordoba soft tissue cores, measuring up to 0.9 cm in length. The specimen is submitted in toto in cassette 1A. AKG 07/23/2025 3:45 PM EDT [facility] Microscopic Description The slides are reviewed and demonstrate histopathologic features supporting the above rendered diagnosis. 07/23/2025 3:45 PM EDT [facility] Tissue Liver structure / Unknown 07/19/2025 3:11 PM EDT 07/22/2025 6:27 AM EDT Comment:LIVER BIOPSY FOR PER MANENT Stewart Barriga MD PATHOLOGY/CYTOLOGY ORDERAB LES Final Result [facility]
[address] [place] [address], * BH AN ETT AIRWAY (07/19/2025 12:49 PM EDT) Narrative Tobi Mckeon CRNA - 07/19/2025 12:49 PM EDT Tobi Mckeon CRNA 07/19/2025 1:18 PM Airway Reason: elective Date/Time: 07/19/2025 12:32 PM Airway not difficult General Information and Staff Patient location during procedure: OR SRNA: Sonia, Adolph, SRNA Indications and Patient Condition Indications for airway management: airway protection Preoxygenated: yes MILS not maintained throughout Mask difficulty assessment: 1 - vent by mask Final Airway Details Final airway type: endotracheal airway Successful airway: ETT Cuffed: yes Successful intubation technique: direct laryngoscopy Endotracheal tube insertion site: oral Blade: Tigre Blade size: 3 ETT size (mm): 7.0 Cormack-Lehane Classification: grade I - full view of glottis Placement verified by: chest auscultation and capnometry Cuff volume (mL): 8 Measured from: lips ETT/EBT to lips (cm): 20 Number of attempts at approach: 1 Assessment: lips, teeth, and gum same as pre-op and atraumatic intubation Additional Comments Negative epigastric sounds, Breath sound equal bilaterally with symmetric chest rise and fall Michael Fernandes Jr., MD ANESTHESIA ORDERABLES F inal Result * Extyernal oblique intercostal blocks (07/19/2025 12:33 PM EDT) Narrative Tobi Mckeon CRNA - 07/19/2025 12:33 PM EDT Tobi Mckeon CRNA 07/19/2025 1:00 PM Extyernal oblique intercostal blocks Patient reassessed immediately prior to procedure Patient location during procedure: OR Stop time: 07/19/2025 12:33 PM Reason for block: at surgeon's request and post-op pain management Performed by DEAN/CAA: Tobi Mckeon CRNASRNA: Adolph Scott, SRNA Preanesthetic Checklist Completed: patient identified, IV checked, site marked, risks and benefits discussed, surgical consent, monitors and equipment checked, pre-op evaluation and timeout performed Prep: Pt Position: supine Sterile barriers:cap, gloves, mask and washed/disinfected hands Prep: ChloraPrep Patient monitoring: blood pressure monitoring, continuous pulse oximetry and EKG Procedure Sedation: yes Performed under: general Guidance:ultrasound guided Images:still images obtained, printed/placed on chart Laterality:Bilateral Block Type:TAP Injection Technique:single-shot Needle Type:short-bevel and echogenic Needle Gauge:20 G Resistance on Injection: none Medications Used: dexamethasone sodium phosphate injection - Injection 4 mg - 07/19/2025 12:33:00 PM bupivacaine PF (MARCAINE) 0.25 % injection - Injection 60 mL - 07/19/2025 12:33:00 PM Medications Comment:Block Injection: LA dose divided between Right and Left block Post Assessment Injection Assessment: negative aspiration for heme, incremental injection and no paresthesia on injection Patient Tolerance:comfortable throughout block Complications:no Additional Notes External oblique intercostal block: Linear US transducer placed in parasagittal plane medial to anterior axillary line, at the level of ribs six and seven. External oblique and intercostal muscles visualized and pleura. Skin prepped with chlorhexidine swabs. Stimuplex 20 ga needle advanced in plane, cephalad to caudad to land on seventh rib. Plane between EO and Intercostal muscles hydrodissected with PF saline. Negative heme aspiration. Local mixture injected incrementally for total dose. No complications. Performed by: Tobi Mckeon CRNA us Tobi Mckeon CRNA ANESTHESIA ORDERABLES Edited Result - Final * Type & Screen (07/19/2025 12:24 PM EDT) ABO Type O 07/19/2025 1:10 PM EDT [facility] RH type Negative 07/19/2025 1:10 PM EDT [facility] Antibody Screen Negative 07/19/2025 1:10 PM EDT [facility] T&S Expiration Date 07/22/2025 11:59:59 PM 07/19/2025 1:10 PM EDT [facility] Blood Line / Unknown 07/19/2025 12 :24 PM EDT 07/19/2025 12:29 PM EDT Stewart Barriga MD BLOOD BANK TEST ORDERABLES Edited Result - Final Performing Organization Address City/[facility]/ZIP Co de Phone Number [facility]
[address] [place] [address], * ABORH 2ND SPECIMEN VERIFICATION (07/12/2025 3:21 PM EDT) ABO Type O 07/12/2025 10:40 PM EDT [facility] RH type Negative 07/12/2025 10:40 PM EDT [facility] Blood Venipuncture / Unknown 07/12/2025 3:21 PM EDT 07/12/2025 4:00 PM EDT Stewart Barriga MD BLOOD BANK TEST ORDERABLES Final Result [facility]
[address] [place] [address], * CBC (No Diff) (07/12/2025 3:13 PM EDT) Only the most recent of2 resultswithin the time period is included. WBC 8.19 3.40 - 10.80 10*3/mm3 07/12/2025 3:39 PM EDT [facility] RBC 5.28 3.77 - 5.28 10*6/mm3 07/12/2025 3:39 PM EDT [facility] Hemoglobin 14.9 12.0 - 15.9 g/dL 07/12/2025 3:39 PM EDT [facility] Hematocrit 45.2 34.0 - 46.6 % 07/12/2025 3:39 PM EDT [facility] MCV 85.6 79.0 - 97.0 fL 07/12/2025 3:39 PM EDT [facility] MCH 28.2 26.6 - 33.0 pg 07/12/2025 3:39 PM EDT [facility] MCHC 33.0 31.5 - 35.7 g/dL 07/12/2025 3:39 PM EDT [facility] RDW 13.0 12.3 - 15.4 % 07/12/2025 3:39 PM EDT [facility] RDW-SD 40.0 37.0 - 54.0 fl 07/12/2025 3:39 PM EDT [facility] MPV 9.6 6.0 - 12.0 fL 07/12/2025 3:39 PM EDT [facility] Platelets 243 140 - 450 10*3/mm3 07/12/2025 3:39 PM EDT [facility] Blood Venipuncture / Unknown 07/12/2025 3:13 PM EDT 07/12/2025 3:28 PM EDT Stewart Barriga MD LAB BLOOD ORDERABLES Final Result [facility]
[address] [place] [address], * MRSA Screen Culture (Outpatient) - Swab, Nares (07/12/2025 3:13 PM EDT) MRSA Screen Cx No Methicillin Resistant Staphylococcus aureus isolated BARTOLO 07/13/2025 2:42 PM EDT [facility] Swab Structure of anterior naris / Unknown Collection / Unknown 07/12/2025 3:13 PM EDT 07/12/2025 3:43 PM EDT [facility] - 07/13/2025 2:42 PM EDT The negative predictive value of this diagnostic test is high and should only be used to consider de-escalating anti-MRSA therapy. A positive result may indicate colonization with MRSA and must be correlated clinically. Stewart Barriga MD MICROBIOLOGY - GENERAL ORD ERABLES Final Result [facility]
[address] [place] [address], * Potassium (07/12/2025 3:13 PM EDT) Potassium 4.4 3.5 - 5.2 mmol/L 07/12/2025 3:59 PM EDT [facility] Comment:Specimen hemolyzed. Result may be falsely elevated. Blood Venipuncture / Unknown 07/12/2025 3:13 PM EDT 07/12/2025 3:28 PM EDT Stewart Barriga MD LAB BLOOD ORDERABLES Final Result [facility]
[address] [place] [address], * (ABNORMAL) Hemoglobin A1c (07/12/2025 3:13 PM EDT) Hemoglobin A1C 6.19(H) 4.80 - 5.60 % 07/12/2025 4:27 PM EDT [facility] Blood Venipuncture / Unknown 07/12/2025 3:13 PM EDT 07/12/2025 3:28 PM EDT Martha [facility] - 07/12/2025 4:27 PM EDT Hemoglobin A1C Ranges: Increased Risk for Diabetes 5.7% to 6.4% Diabetes >= 6.5% Diabetic Goal < 7.0% Stewart Barriga MD LAB BLOOD ORDERABLES Final Result [facility]
[address] [place] [address], [place] [phone] * Lipid Panel (02/05/2025 11:26 AM EDT) Pathologist [facility] Total Cholesterol 170 100 - 199 mg/dL [facility] Triglycerides 67 0 - 149 mg/dL [facility] HDL Cholesterol 70 >39 mg/dL [facility] VLDL Cholesterol Dave 13 5 - 40 mg/dL [facility] LDL Chol Calc (NIH) 87 0 - 99 mg/dL [facility] Blood 02/05/2025 11:2 6 AM EDT 02/05/2025 Narrative [facility] - 02/06/2025 5:09 PM EDT Performed at: 01 - [facility] [id number] [employer] M[employer] Machine Operator: Von Alcala PhD, Phone: [phone] Patient Fasting: N Angelika Pierre APRN LAB BLOOD ORDERABLES Final Res ult Performing Organization Address City/[facility]/ZIP Co de Phone Number [facility]) [address] [place] [address], [facility] [address] [place] [phone], from Last 3 Months or Most Recently Relevant to Health Maintenance Insurance [facility] PPO Member Subscriber Plan / Payer (Ef fective 2023-Present) Name:Ashely Gross Member ID:[id number] Relation to Subscriber:Self Name:Ashely Gross Subscriber ID:[id number] Payer ID:[id number] (NAIC) Type:Not on file Address: [address] Advance Directives * CPR (Attempt to Resuscitate) (Latest Code Status on File) Date Activated Date Inactivated Comments 07/19/2025 3:25 PM 07/24/2025 3:08 PM Question Answer Comments Code Status (Patient has no pulse and is not breathing): CPR (Attempt to Resuscitate) Medical Interventions (Patie nt has pulse or is breathing): Full Support Level Of Support Discussed With: Patient Care Teams Media Clerk Relationship Specialty Start Date End Date Gaivn Jo MD [address] [address] PCP - General Internal Medicine 02/21/23
--- OUTSIDE RECORDS SUMMARY | 2025-09-24 08:17 | XMS_ITS | Clinical Summary ---
Author Organization [employer] ([place], [place], [place], [place], [place]) Address [address] [place] [address] Care Team Providers Care Hse Advisor Name Role Phone Gavin Jo MD Primary Care Provider Allergies No known active allergies Social History [...] 01/30/2025 3:51 PM EDT Plan of Treatment Health Maintenance Due Date Last Done Comments CT Colonography 1976 Colonoscopy 1976 Colorectal Cancer Screening 1976 FOBT/FIT 1976 Fit-DNA (Cologuard) 1976 Sigmoidoscopy 1976 Depression Screening (12+) 1988 Tobacco Cessation Counseling and Screening (12+) 1988 HIV Screening 02/19/1991 Hepatitis C Screening 02/19/1994 DTAP/TDAP/TD VACCINES (1 - Tdap) 02/19/1995 Pap Smear 02/19/1997 Lipid Panel 02/19/2021 Breast Cancer Screening 04/19/2024 04/19/2022 COVID-19 VACCINE (3 - 2024-2 6 season) 2025 12/17/2020, 11/05/2020 Influenza Vaccine (#1) 2025 Pneumococcal Vaccine: 0-49 Years Aged Out No longer eligible b ased on patient's age to complete this topic Insurance BLUE CROSS/BLUE SHIELD Care Teams Hse Advisor Relationship Specialty Start Date End Date Gavin Jo MD [address] [place] [address] [address] [place] [address] PCP - General General Internal Medicine 01/30/25
--- OUTSIDE RECORDS SUMMARY | 2025-09-24 08:18 | XMS_ITS | Clinical Summary ---
Author Organization Healthcare Address [address] [place] [address] Care Team Providers Care Locker Plant Attendant Name Role Phone Gavin Jo MD Primary Care Provider [phone] Randal Amaya APRN, DNP Unavailable [phone] Allergies Active Allergy Reactions Criticality Noted Date Comments Azithromycin Rash Low 07/04/2024 Clarithromycin Unknown - Patient st ates they do not know rxn details Low 02/17/2015 Clindamycin Rash Low 08/29/2014 Erythromycin Other - please docum ent in the comment field,Hives Medium 05/25/2018 patient describes violent vomiting patient describes violent vomiting Medications Blood Glucose Monitoring Suppl (ONE TOUCH ULTRA 2) w/Device kit device kit one twice daily 02/28/2020 Active LIFESCAN FINEPOINT LANCETS misc CHECK TWICE DAILY 02/28/2020 Active Mounjaro 10 MG/0.5ML solution pen-injector solution pen-injector Inject 0.5 mL (10 mg) under the skin 1 (one) time per week. Active Triamcinolone Acetonide (Triamcinolone in Absorbase) 0.05 % ointment Acti ve ergocalciferol 1.25 MG (84186 UT) capsule Take 1 capsule (50,000 Units) by mouth 1 (one) time per week. 04/25/2024 Active valsartan (Diovan) 160 MG tablet Take 1 tablet (160 mg) by mouth daily. 90 tablet 3 01/11/2025 Active apixaban (Eliquis) 5 MG tablet Take 1 tablet by mouth in the morning and 1 tablet before bedtime. 180 tablet 3 01/25/2025 Active venlafaxine XR (Effexor-XR) 150 MG 24 hr capsule Take 1 capsule by mouth daily. 90 capsule 1 04/15/2025 5 Active rosuvastatin (Crestor) 5 MG tablet Take 1 tablet by mouth daily. 90 tablet 3 08/16/2025 6 Active Active Problems Problem Noted Date Diagnosed Date Acute eczematoid otitis externa 07/04/2024 Indigestion 07/04/2024 Obstructive sleep apnea syndrome 07/04/2024 Otitis externa of left ear 07/04/2024 Hypersomnia 03/09/2024 Palpitations 01/13/2024 Unintended weight gain 04/21/2023 Subclinical hyperthyroidism 12/13/2022 Subclinical hypothyroidism 09/04/2022 Obesity (BMI 30-39.9) 09/04/2022 Hypertension 05/15/2022 Type 2 diabetes mellitus wit hout complication, with long-term current use of insulin 05/15/2022 Preventive measure 04/13/2022 Morbid obesity with body mass index (BMI) of 40. 0 or higher 01/27/2022 Anxiety 10/31/2020 Eczema 10/31/2020 Diabetes type 2, uncontrolled 10/06/2018 Arthralgia of multiple joints 07/17/2018 Allergic rhinitis with postnasal drip 03/17/2017 Morbid obesity 06/12/2015 HTN (hypertension) 05/17/2015 PTSD (post-traumatic stress disorder) 05/13/2015 Resolved Problems Problem Noted Date Diagnosed Date Resolved Date Insomnia 03/09/2024 07/14/2025 Paresthesia of upper limb 08/15/2023 Abnormal intentional weight loss 08/31/2022 07/14/2025 Snoring 09/09/2017 07/14/2025 Encounters Date Type Department Care Team Description 08/16/2025 12:40 PM EDT Office Visit [facility] [place] [address], [address] [place] [id number] Brian Mendes MD Paroxysmal atrial fibrillation (CMS/HCC) (Primary Dx); Coronary artery disease involving poarch coronary artery of poarch heart without angina pectoris; PVC (premature ventricular contraction); Essential hypertension; Diabetes mellitus type II, non insulin dependent 08/16/2025 Travel from Last 3 Months Immunizations Immunization Administration Dates Next Due Hep A, Adult 09/28/2018 Influenza, injectable, quadr ivalent, preservative free 11/17/2023,08/18/2021,07/24/2020,2018 Family History Medical History Relation Name Comments Migraines Brother Cardiac disorder Father Hypertension Father Migraines Mother Relation Name Status Comments Brother Father Mother Social History Tobacco Use Types Packs/Day Years [...] Pulse 61 08/16/2025 12:35 PM EDT Temperature 36.6 C (97.9 F) 07/06/2024 2:44 PM EDT Respiratory Rate 18 02/08/2025 1:05 PM EDT Oxygen Saturation 97% 08/16/2025 12:35 PM EDT Inhaled Oxygen Concentration - - Weight 97.3 kg (214 lb 8.1 oz) 08/16/2025 12:35 PM EDT Height 163.8 cm (5' 4.5 ) 08/16/2025 12:35 PM ED T Body Mass Index 36.25 08/16/2025 12:35 PM EDT Plan of Treatment Upcoming Encounters Date Type Department Care Team (Late st Contact Info) Description 02/21/2026 11:00 AM EDT Appointment Medical Office Building Cardiac Diagnostic Testing Medical Office Building Echo Lab [address], [address] [place] [address] 02/21/2026 12:40 PM EDT Office Visit [facility] [place] [address], [address] [place] [address] Brian Mendes MD [address] [place] [address] Health Maintenance Due Date Last Done Comments [facility]-Infant/Child/Adol SDOH Screenings 1976 Diabetes: Dental Exam 02/19/1986 [facility]- SDOH Screenings 02/19/1994 [facility]-Adult SDOH Screenings 02/19/1994 [facility]-DTaP,Tdap,and Td Vaccines (1 - Tdap) 02/19/1995 [facility]-Hepatitis B Vaccines (1 of 3 - 19+ 3-dose series) 02/19/1995 [facility]-Pneumococcal Vaccine: Pediatrics (0 to 5 Years) and At-Risk Patients (6 to 49 Years) (1 of 2 - PCV) 02/19/1995 CT Colonography 02/19/2021 Colonoscopy 02/19/2021 FIT-DNA 02/19/2021 FIT 02/19/2021 FOBT 02/19/2021 Sigmoidoscopy 02/19/2021 [facility]-Colorectal Cancer Screening 02/19/2021 [id number] Vaccine (3 - 2024- season) 2025 12/17/2020, 11/05/2020 [facility]-Influenza Vaccine (#1) 06/24/202511/17, 08/18/2021, 07/24/2020, Additional history exists [facility]-Diabetes: Hemoglobin A1C 01/09/2026, 02/05/2025, 12/13/2022, Additional history exists [facility]-Zoster Vaccines (1 of 2) 02/19/2026 [facility]-Depression Screening 08/16/2026 08/16/2025, 07/25 [facility]-Hepatitis A Vaccines Aged Out 09/28/2018 No longer eligible based on patient's age to complete this topic [facility]-HIV Screening Completed 06/13/2024 [facility]-Hepatitis C Screening Completed 2023, 10/09/2018, 05/23/2018 [facility]-Obesity Intervention Completed 025, 06/21/2025, 05/10/2025, Additional history exists HPV Vaccines Aged Out No longer eligi ble based on patient's age to complete this topic [facility]-HIB Vaccines Aged Out No longer e ligible based on patient's age to complete this topic [facility]-IPV Vaccines Aged Out No longer e ligible based on patient's age to complete this topic [facility]-Rotavirus Vaccines Aged Out No lo nger eligible based on patient's age to complete this topic Procedures Procedure Name Priority Date/Time Associated Diagnosis Comments HEPATITIS C ANTIBODY - ED W/REFLEX TO HCV QUANT PCR STAT 06/13/2024 12:31 PM EDT ED HIV 1/2 ANTIBODY/ANTIGEN SCREEN WITH REFLEX TO HIV I/II DIFFERENTIATION STAT 06/13/2024 12:31 PM EDT POCT GLYCOSYLATED HEMOGLOBIN (HGB A1C) Routine 12/13/2022 9:53 AM EST Type 2 diabetes mellitus without complication, with long-term current use of insulin (CMS/[facility]) from Last 3 Months or Most Recently Relevant to Health Maintenance Results * ED HIV 1/2 Antibody/Antigen Screen w/Reflex to HIV 1/2 Differentiation (06/13/2024 12:31 PM EDT) HIV 1 & 2 Antibody/Antigen Screen Non Reactive Non Reactive 06/13/2024 1:59 PM EDT [facility] Comment:Screening for HIV 1 & 2 antibodies, and P24 antigen is NONREACTIVE. No confirmatory testing is required. Blood Venous blood specimen / Unknown Venipuncture / Unknown 06/13/2024 12:31 PM EDT 06/13/2024 12:46 PM EDT Evin Key MD LAB BLOOD ORDERABLES Final Res ult [facility] [address] [place] [id number] * Hepatitis C Antibody - ED (06/13/2024 12:31 PM EDT) Hepatitis C Antibody Negative Negative 06/13/2024 1:57 PM EDT [facility] Blood Venous blood specimen / Unknown Venipuncture / Unknown 06/13/2024 12:31 PM EDT 06/13/2024 12:46 PM EDT us Evin Key MD LAB BLOOD ORDERABLES Final Res [facility] [address] [place] [address] from Last 3 Months or Most Recently Relevant to Health Maintenance Insurance [facility] Care Teams Locker Plant Attendant Relationship Specialty Start Date End Date Gavin Jo MD [facility] [address] [address] PCP - General 05/05/22 Randal Amaya, PONY RIDE ATTENDANT, DNP [address] [place] [phone] Nurse Practitioner Psychiatry 03/01/25
== END 2025-09-22 23:59 ==
LOC: LAB.DROPOF 09-24 08:12
PROVIDERS: PCP Pediatrics; Visit Provider Student in an Organized Health Care Education/Training Program
DX: N39.0 Urinary tract infection, site not specified (principal)
CPT/HCPCS: 87086; 87088